=== PATIENT | female | born 1950 | race African-American/Black ===

== ENCOUNTER 2016-07-21 07:52 | Outpatient (CLI) | payer MEDICARE, OTHER ==
[~2016-07-21 07:52] MED LIST: DEXAMETHASONE SOD PHOSPHATE 10 MG in NORMAL SALINE 50 ML IV PRN; DEXTROSE 5%-WATER 250 ML IV PRN; DIPHENHYDRAMINE HCL 50 MG/ML VIAL IV PRN; [UNRECOGNIZED DRUG - OTHER] IV PRN; [UNRECOGNIZED DRUG - OTHER] IV PRN
[2016-07-21 08:35] VITALS: BP 118/70
== END 2016-07-21 13:09 | disposition home health service (06) ==
LOC: II 07:52 → 5TH 07:55 → II 13:09
PROVIDERS: ATTEND Internal Medicine
PROC: 3E033GC Introduction of Other Therapeutic Substance into Peripheral Vein, Percutaneous Approach (ICD-10-PCS; principal; 2016-07-21)
DX: D80.1 Nonfamilial hypogammaglobulinemia (principal)
CPT/HCPCS: 96365; 96366; 96367; 96375; J1200; A9270 ×2; J1100; J1566 ×2; 96360; 96374; J3490

== ENCOUNTER 2016-09-07 09:25 | Outpatient (CLI) | payer MEDICARE, OTHER ==
[~2016-09-07 09:25] MED LIST changes: +DEXAMETHASONE SOD PHOS INJ 10 MG/1 ML VIAL IV PRN; -DEXAMETHASONE SOD PHOSPHATE 10 MG in NORMAL SALINE 50 ML IV PRN; +[UNRECOGNIZED DRUG - MIXTURE] IV PRN; +[UNRECOGNIZED DRUG - OTHER] IV PRN; -[UNRECOGNIZED DRUG - OTHER] IV PRN; -[UNRECOGNIZED DRUG - OTHER] IV PRN
[2016-09-07 13:56] VITALS: BP 128/52
== END 2016-09-07 14:09 | disposition home or self-care (01) ==
LOC: II 09:25 → 5TH 09:25 → II 14:09
PROVIDERS: ATTEND Internal Medicine
PROC: 3E043GC Introduction of Other Therapeutic Substance into Central Vein, Percutaneous Approach (ICD-10-PCS; principal; 2016-09-07)
PROC: 3E043GC Introduction of Other Therapeutic Substance into Central Vein, Percutaneous Approach (ICD-10-PCS; 2016-09-07)
PROC: 3E043GC Introduction of Other Therapeutic Substance into Central Vein, Percutaneous Approach (ICD-10-PCS; 2016-09-07)
PROC: 3E043GC Introduction of Other Therapeutic Substance into Central Vein, Percutaneous Approach (ICD-10-PCS; 2016-09-07)
DX: D80.1 Nonfamilial hypogammaglobulinemia (principal)
CPT/HCPCS: 96365; 96366; 96375; J1200; A9270; J1100; J1566 ×2; 96374; J3490

== ENCOUNTER 2016-10-19 08:02 | Outpatient (CLI) | payer MEDICARE, OTHER ==
[~2016-10-19 08:02] MED LIST changes: -DEXAMETHASONE SOD PHOS INJ 10 MG/1 ML VIAL IV PRN; +DEXAMETHASONE SOD PHOSPHATE 10 MG in NORMAL SALINE 50 ML IV PRN; -[UNRECOGNIZED DRUG - MIXTURE] IV PRN; +[UNRECOGNIZED DRUG - OTHER] IV PRN; +[UNRECOGNIZED DRUG - OTHER] IV PRN; -[UNRECOGNIZED DRUG - OTHER] IV PRN
[2016-10-19 08:43] VITALS: BP 140/70
== END 2016-10-19 13:47 | disposition home or self-care (01) ==
LOC: II 08:02 → 5TH 08:06 → II 13:47
PROVIDERS: ATTEND Internal Medicine
PROC: 3E033WL Introduction of Immunosuppressive into Peripheral Vein, Percutaneous (ICD-10-PCS; principal; 2016-10-19)
PROC: 3E033GC Introduction of Other Therapeutic Substance into Peripheral Vein, Percutaneous Approach (ICD-10-PCS; 2016-10-19)
DX: D80.1 Nonfamilial hypogammaglobulinemia (principal)
CPT/HCPCS: 96365; 96366; 96375; 96360; J1200; A9270; J1100; J1566 ×2; J3490

== ENCOUNTER 2016-11-30 09:40 | Outpatient (CLI) | payer MEDICARE, OTHER ==
[~2016-11-30 09:40] MED LIST changes: +IGA IV PRN; +IMMUN GLOB IV PRN; +SUCR IV PRN; +[UNRECOGNIZED DRUG - OTHER] IV PRN; -[UNRECOGNIZED DRUG - OTHER] IV PRN; -[UNRECOGNIZED DRUG - OTHER] IV PRN
[2016-11-30 11:34] VITALS: BP 137/71
== END 2016-11-30 14:25 | disposition home or self-care (01) ==
LOC: 5TH 09:40 → II 09:40
PROVIDERS: ATTEND Internal Medicine
PROC: 3E043WK Introduction of Immunostimulator into Central Vein, Percutaneous (ICD-10-PCS; principal; 2016-11-30)
PROC: 3E0433Z Introduction of Anti-inflammatory into Central Vein, Percutaneous Approach (ICD-10-PCS; 2016-11-30)
PROC: 3E043GC Introduction of Other Therapeutic Substance into Central Vein, Percutaneous Approach (ICD-10-PCS; 2016-11-30)
DX: D80.1 Nonfamilial hypogammaglobulinemia (principal)
CPT/HCPCS: 96367; 96375; J1200; A9270; J1100; J1566 ×2; 96365; 96366; J3490

== ENCOUNTER → 2016-12-26 | Outpatient (CLI) | payer MEDICARE, OTHER ==
--- NOTE | 2016-12-26 10:29 | WOMENS IMAGING REPORT ---
EXAM DESCRIPTION: 3D SCREENING MAMMO BILAT COMPLETED DATE/TIME: 12/26/2016 9:34 am REASON FOR STUDY: 3D ROUTINE SCREENING; Z12.31 Z12.31 ENCNTR SCREEN MAMMOGRAM FOR MALIGNANT NEOPLAS M OF [place] COMPARISON: 12/15/2015 and 02/05/2015. TECHNIQUE: Standard craniocaudal and mediolateral oblique views of each breast recorded using digita l acquisition and breast tomosynthesis. LIMITATIONS: None. FINDINGS: No masses, calcifications or architectural distortion. No areas of suspicion. Read with the assistance of CAD. .[facility] - R2 Cenova Version 1.3 .[facility] - R2 Cenova Version 1.3 .[facility] - R2 Cenova Version 2.4 .[facility] - R2 Cenova Version 2.4 .[facility] - R2 Cardiac Catheterization Technician Version 9.2 IMPRESSION: NORMAL MAMMOGRAM. BIRADS 1. BREAST DENSITY: c. The breasts are heterogeneously dense, which may obscure small masses. BIRAD: 1 NEGATIVE RECOMMENDATION: ROUTINE SCREENING COMMENT: The patient has been notified of the results by letter per SA requirements. Additional no tification policies are in place for contacting patient with suspicious or incomplete findings. Quality ID #[id number]: The [employer] recommends an annual screening mammogram for women aged 40 years or over. This facility utilizes a reminder system to ensure that all patients receive reminder letters, and/or direct phone calls for appointments. This includes reminders for routine scr eening mammograms, diagnostic mammograms, or other Breast Imaging Interventions when appropriate. Th is patient will be placed in the appropriate reminder system. The [employer] (ACR) has developed recommendations for screening MRI of the breast s in certain patient populations, to be used in conjunction with mammography. Breast MRI surveillanc e may be appropriate for women with more than 20% lifetime risk of developing breast cancer as deter mined by genetic testing, significant family history of the disease, or history of mantle radiation f or Hodgkins Disease. ACR Practice Guidelines 2008. DBT Technology DBT is a type of tomographic mammography. With conventional mammography, overlapping breast tissue ma y make lesions difficult to detect, even with good compression. DBT uses an x-ray tube that rotates a round the breast, taking images at different angles. These images are then combined to create thin sl ices of the breast that the radiologist can view as a 3D reconstruction. The [employer] unit can perform full-field digital mammograms (2D imaging); or DBT (3D imaging); or both, in a combination mode that quickly performs both the mammogram and the tomosynthesis scan while the breast is still compressed. PQRS 6045F: Fluoroscopic imaging is not utilized for breast tomosynthesis. TECHNICAL DOCUMENTATION: FINDING NUMBER: (1) ASSESSMENT: (1) JOB ID: [id number] [employer]- All Rights Reserved
== END ==
LOC: WI 09:04
PROVIDERS: ATTEND Obstetrics & Gynecology Gynecology
DX: Z12.31 Encounter for screening mammogram for malignant neoplasm of breast (principal)
CPT/HCPCS: 77063; G0202; 77067

== ENCOUNTER 2017-01-11 08:17 | Outpatient (CLI) | payer MEDICARE, OTHER ==
[~2017-01-11 08:17] MED LIST changes: +DEXAMETHASONE SOD PHOS INJ 10 MG/1 ML VIAL IV PRN; -IGA IV PRN; -IMMUN GLOB IV PRN; -SUCR IV PRN; -[UNRECOGNIZED DRUG - OTHER] IV PRN
[2017-01-11] MEDS: [UNRECOGNIZED DRUG - OTHER] IV PRN ×2 (09:22→11:42)
[2017-01-11] MEDS: SUCR IV PRN ×2 (09:22→11:42)
[2017-01-11] MEDS: IMMUN GLOB IV PRN ×2 (09:22→11:42)
[2017-01-11] MEDS: IGA IV PRN ×2 (09:22→11:42)
[2017-01-11 09:59] VITALS: BP 137/62
== END 2017-01-11 13:15 | disposition home or self-care (01) ==
LOC: II 08:17 → 5TH 08:29 → II 13:15
PROVIDERS: ATTEND Internal Medicine
PROC: 30243S1 Transfusion of Nonautologous Globulin into Central Vein, Percutaneous Approach (ICD-10-PCS; principal; 2017-01-11)
PROC: 3E0433Z Introduction of Anti-inflammatory into Central Vein, Percutaneous Approach (ICD-10-PCS; 2017-01-11)
PROC: 3E043GC Introduction of Other Therapeutic Substance into Central Vein, Percutaneous Approach (ICD-10-PCS; 2017-01-11)
DX: D80.1 Nonfamilial hypogammaglobulinemia (principal)
CPT/HCPCS: 96365; 96366; 96367; 96375; J1200; A9270; J1100; J1566 ×2; J3490

== ENCOUNTER 2017-02-22 07:37 | Outpatient (CLI) | payer MEDICARE, OTHER ==
[~2017-02-22 07:37] MED LIST changes: -DEXAMETHASONE SOD PHOS INJ 10 MG/1 ML VIAL IV PRN; +IGA IV PRN; +IMMUN GLOB IV PRN; +SUCR IV PRN; +[UNRECOGNIZED DRUG - OTHER] IV PRN
[2017-02-22 08:10] VITALS: BP 134/80
== END 2017-02-22 12:58 | disposition home or self-care (01) ==
LOC: II 07:37 → 5TH 07:38 → II 12:58
PROVIDERS: ATTEND Internal Medicine
PROC: 30243S1 Transfusion of Nonautologous Globulin into Central Vein, Percutaneous Approach (ICD-10-PCS; principal; 2017-02-22)
DX: D80.1 Nonfamilial hypogammaglobulinemia (principal)
CPT/HCPCS: 96365; 96366; 96374; 96375; 96523; J1200; A9270; J1100; J1566 ×2; J3490

== ENCOUNTER 2017-04-05 07:59 | Outpatient (CLI) | payer MEDICARE, OTHER ==
[~2017-04-05 07:59] MED LIST changes: +DIPHENHYDRAMINE HCL 50 MG in NORMAL SALINE 50 ML INJ PRN
[2017-04-05 08:29] VITALS: BP 132/68
== END 2017-04-05 12:51 | disposition home or self-care (01) ==
LOC: II 07:59 → 5TH 08:02 → II 12:51
PROVIDERS: ATTEND Internal Medicine
PROC: 30243S1 Transfusion of Nonautologous Globulin into Central Vein, Percutaneous Approach (ICD-10-PCS; principal; 2017-04-05)
PROC: 3E0433Z Introduction of Anti-inflammatory into Central Vein, Percutaneous Approach (ICD-10-PCS; 2017-04-05)
PROC: 3E043GC Introduction of Other Therapeutic Substance into Central Vein, Percutaneous Approach (ICD-10-PCS; 2017-04-05)
DX: D80.1 Nonfamilial hypogammaglobulinemia (principal)
CPT/HCPCS: 96365; 96366; 96367; 96375; 96417; 96523; J1200; A9270; J1100; J1566 ×2; 96413; 96415; J3490

== ENCOUNTER 2017-05-17 09:46 | Outpatient (CLI) | payer MEDICARE, OTHER ==
[~2017-05-17 09:46] MED LIST changes: -DIPHENHYDRAMINE HCL 50 MG in NORMAL SALINE 50 ML INJ PRN
[2017-05-17 13:36] VITALS: BP 116/74
== END 2017-05-17 13:36 | disposition home or self-care (01) ==
LOC: 5TH 09:46 → II 09:46
PROVIDERS: ATTEND Internal Medicine
PROC: 30243S1 Transfusion of Nonautologous Globulin into Central Vein, Percutaneous Approach (ICD-10-PCS; principal; 2017-05-17)
PROC: 3E0433Z Introduction of Anti-inflammatory into Central Vein, Percutaneous Approach (ICD-10-PCS; 2017-05-17)
PROC: 3E043GC Introduction of Other Therapeutic Substance into Central Vein, Percutaneous Approach (ICD-10-PCS; 2017-05-17)
DX: D80.1 Nonfamilial hypogammaglobulinemia (principal)
CPT/HCPCS: 96365; 96366; 96367; 96374; 96523; J1200; A9270; J1100; J1566 ×2; 96375; J3490

== ENCOUNTER → 2017-05-18 | Outpatient (CLI) | payer MEDICARE, OTHER ==
--- NOTE | 2017-05-18 10:55 | WOMENS IMAGING REPORT ---
EXAM DESCRIPTION: BONE DENSITY HIP/SPINE COMPLETED DATE/TIME: 05/18/2017 9:39 am REASON FOR STUDY: OSTEOPROSIS; M81.0 M81.0 AGE-RELATED OSTEOPOROSIS W/O CURRENT PATHOLOGICAL FRAC COMPARISON: None. TECHNIQUE: Dual-Energy X-ray Absorptiometry (DEXA) of the AP Spine and Hip. LIMITATIONS: None. FINDINGS: LUMBAR SPINE: The bone mineral density (BMD) measured from L1-L4 in the AP projection correlates with a T-score of -1.2, which is osteopenia as defined by the World Health Organization. HIP: The bone mineral density (BMD) measured in the left hip correlates with a T-score of -0.3, which is n ormal as defined by the World Health Organization. IMPRESSION: 1. LUMBAR SPINE: OSTEOPENIA. 2. HIP: NORMAL. COMMENT: The patient's 10 year risk of major osteoporotic fracture is 4.7%. Her 10 year risk of hip fracture is 0.2%. The World Health Organization defines low BMD as follows: T-score: Normal: Greater than -1.0 Osteopenia: Between -1.0 and -2.5 Osteoporosis: Less than -2.5 without fractures Established osteoporosis: Less than -2.5 with fractures In general, you may wish to consider: Diagnosis Treatment Follow-up DEXA Normal BMD Prevention 2-3 years Osteopenia Prevention/Therapy 1-2 years Osteoporosis Therapy Yearly TECHNICAL DOCUMENTATION: JOB ID: [id number]- All Rights Reserved
== END ==
LOC: WI 09:07
PROVIDERS: ATTEND Orthopaedic Surgery
DX: M81.0 Age-related osteoporosis without current pathological fracture (principal)
CPT/HCPCS: 77080

== ENCOUNTER 2017-06-25 06:33 | Inpatient (IN) | payer MEDICARE, OTHER ==
[2017-06-25] MEDS ORDERED: ONDANSETRON HCL INJ/PF 4 MG/2 ML SDV IV ONE (07:02)
[2017-06-25] MEDS ORDERED: PROCHLORPERAZINE EDISYLATE INJ 10 MG/2 ML VIAL IV ONE (07:02)
[2017-06-25] MEDS: NORMAL SALINE 1000 ML 1,000 ML IV PRN ×2 (07:30→09:08)
[2017-06-25 07:34] LABS: ABSOLUTE LYMPHOCYTES (AUTO) 1.5 10^3/uL (0.5-4.7); ABSOLUTE MONOCYTES (AUTO) 0.4 10^3/uL (0.1-1.4); ABSOLUTE NEUT (AUTO) 4.1 10^3/uL (1.7-8.2); BASOPHILS % (AUTO) 0.1 % (0-2); EOSINOPHILS % (AUTO) 0.1 % (0-6); HEMATOCRIT 37.3 % (36.0-47.0); HEMOGLOBIN 12.4 g/dL (12.0-15.5); HGB HCT DIFFERENCE -0.1; LYMPHOCYTES % (AUTO) 25.4 % (13-45); MEAN CORPUSCULAR HEMOGLOBIN 30.9 pg (27.0-33.4); MEAN CORPUSCULAR HGB CONC 33.3 g/dL (32.0-36.0); MEAN CORPUSCULAR VOLUME 93 fl (80-97); MONOCYTES % (AUTO) 6.6 % (3-13); RED BLOOD COUNT 4.01 10^6/uL (3.72-5.28); RED CELL DISTRIBUTION WIDTH 13.3 % (11.5-14.0); SEGMENTED NEUTROPHILS % (AUTO) 67.8 % (42-78); WHITE BLOOD COUNT 6.1 10^3/uL (4.0-10.5)
[2017-06-25 07:51] LABS: VENOUS BLOOD BASE EXCESS -6.4 mmol/L; VENOUS BLOOD HCO3 20.2 mmol/L (20-32); VENOUS BLOOD PCO2 44.1 mmHg (35-63); VENOUS BLOOD PH 7.28 (7.30-7.42)
[2017-06-25 08:32] LABS: ALANINE AMINOTRANSFERASE 37 U/L (9-52); ALBUMIN 3.9 g/dL (3.5-5.0); ALKALINE PHOSPHATASE 44 U/L (38-126); ASPARTATE AMINO TRANSFERASE 25 U/L (14-36); BILIRUBIN,DIRECT 0.4 mg/dL (0.0-0.4); BILIRUBIN,TOTAL 0.9 mg/dL (0.2-1.3); BLOOD UREA NITROGEN 22 mg/dL (7-20); CALCIUM 9.4 mg/dL (8.4-10.2); CREATININE RESULT 0.88 mg/dL (0.52-1.25); LIPASE 30.2 U/L (23-300); TOTAL PROTEIN 6.3 g/dL (6.3-8.2)
--- NOTE | 2017-06-25 08:40 | RADIOLOGY REPORT (SQ) ---
EXAM DESCRIPTION: ACUTE ABDOMEN SERIES COMPLETED DATE/TIME: 06/25/2017 8:28 am REASON FOR STUDY: n/v/ sob COMPARISON: Chest films 05/24/2011, 04/10/2016 CT abdomen and pelvis 10/08/2015 NUMBER OF VIEWS: Three views. TECHNIQUE: Frontal chest, supine abdomen and upright abdomen radiographic images acquired. LIMITATIONS: None. FINDINGS: CHEST: Lungs clear of infiltrates. Mild pulmonary vascular prominence without alveolar or interstitial edema. No pleural effusions. No pneumothorax. Cardiac silhouette size mildly enlarge d, stable. FREE AIR: None. No abnormal gas collections. BOWEL GAS PATTERN: Nonobstructive pattern. No dilated loops or air fluid levels. CALCIFICATIONS: No suspicious calcifications. HARDWARE: None in the abdomen. Small implanted cardiac monitoring device over the left lower anterio r ribs. Lower cervical fixation hardware. SOFT TISSUES: No gross mass or suggestion of organomegaly. BONES: No acute fracture. No worrisome bone lesions. OTHER: No other significant finding. IMPRESSION: NO RADIOGRAPHIC EVIDENCE FOR ACUTE ABDOMINAL DISEASE. TECHNICAL DOCUMENTATION: JOB ID: [id number]- All Rights Reserved
[2017-06-25 08:53] LABS: CARBON DIOXIDE 18 mmol/L (22-30); CHLORIDE 97 mmol/L (98-107); POTASSIUM 4.2 mmol/L (3.6-5.0); SODIUM 135.8 mmol/L (137-145)
[2017-06-25 08:54] LABS: ANION GAP 21 (5-19)
[2017-06-25 08:57] LABS: GLUCOSE 521 mg/dL (75-110)
[2017-06-25] MEDS ORDERED: GLUCAGON,HUMAN RECOMB 1 MG INJ IM PRN ×2 (09:16→10:22)
[2017-06-25] MEDS ORDERED: DEXTROSE 40% GEL 15 GM TUBE PO PRN ×4 (09:16→10:22)
[2017-06-25] MEDS ORDERED: DEXTROSE 50%-WATER 25 GM/50 ML DISP.SYRIN IV PRN ×4 (09:16→10:22)
--- NOTE | 2017-06-25 09:28 | ER Document Report ---
ED General - General Chief Complaint: High Blood Sugar Stated Complaint: BLOOD SUGAR PROBLEM Time Seen by Provider: 06/25/17 06:50 TRAVEL OUTSIDE OF THE [place] IN LAST 30 DAYS: No - HPI Patient complains to provider of: Elevated blood sugar Notes: Patient coming in with elevated blood sugar. States reading high today patient states over the last few days having nausea vomiting. Patient has a history of diabetes is on insulin pump that she bolused herself 5 units of insulin early this morning at 5:00. Patient states she also has a history of hyper hemoglobin anemia. Patient states that she has not been on any recent antibiotics denies any fever chills nausea vomiting cough denies any urinary issues. - Related Data Allergies/Adverse Reactions: No Known Allergies Allergy (Verified 06/25/17 07:51) Home Medications: Current Home Medications Ascorbic Acid [Vitamin C 500 mg Tablet] 500 mg PO DAILY 06/25/17 [History] Aspirin [Aspirin EC] 81 mg PO DAILY 06/25/17 [History] Citalopram Hydrobromide [Celexa 20 mg Tablet] 20 mg PO QHS 06/25/17 [History] Cyclosporine 0.05% Oph Emulsio [Restasis 0.05% Opthalmic Droperette] 1 drop OU Q12 06/25/17 [History] Fexofenadine HCl [Neli] 180 mg PO DAILY 06/25/17 [History] Fluticasone Propionate [Flonase Nasal [place] 50 Mcg/[place] 16 gm] 1 spray NAREB Q12 06/25/17 [History] Furosemide [Lasix 40 mg Tablet] 40 mg PO QAM 06/25/17 [History] Guaifenesin/Dextromethorphan [Mucinex Dm ER 600-30 mg Tablet] 1 tab PO Q12 06/25 [History] Insulin Aspart [Novolog Flexpen] 0 unit SUBCUT .SLD SCALE 06/25/17 [History] Losartan/Hydrochlorothiazide [Losartan-Hctz 50-12.5 mg Tab] 1 tab PO DAILY 06/25 [History] Pnv,Calcium 72/Iron/Folic Acid [Pnv Plus Multivit Tab] 1 tab PO DAILY 06/25/17 [History] Pravastatin Sodium [Pravachol] 40 mg PO QHS 06/25/17 [History] Promethazine HCl [Phenergan 25 mg Tablet] 25 mg PO DAILYP PRN 06/25/17 [History] Valacyclovir HCl [Valtrex 500 Mg Tablet] 500 mg PO Q48H MDD NEXT DOSE DUE 06/25/17 [History] Past Medical History - Social History Smoking Status: Unknown if Ever Smoked Family History: Reviewed & Not Pertinent Patient has suicidal ideation: No Patient has homicidal ideation: No - Past Medical History Cardiac Medical History: Reports: Hx Hypertension Denies: Hx Congestive Heart Failure, Hx Heart Attack, Hx Heart Murmur Pulmonary Medical History: Reports: Hx Bronchitis, Hx COPD Denies: Hx Asthma, Hx Pneumonia, Hx Tuberculosis Neurological Medical History: Denies: Hx Cerebrovascular Accident, Hx Seizures Endocrine Medical History: Reports: Hx Diabetes Mellitus Type 1 Renal/ Medical History: Denies: Hx Peritoneal Dialysis GI Medical History: Denies: Hx Hepatitis, Hx Hiatal Hernia, Hx Ulcer Musculoskeltal Medical History: Reports Hx Arthritis Infectious Medical History: Denies: Hx Hepatitis Past Surgical History: Reports: Hx Hysterectomy. Denies: Hx Mastectomy, Hx Open Heart Surgery, Hx Pacemaker - Immunizations Hx Diphtheria, Pertussis, Tetanus Vaccination: Yes Hx Pneumococcal Vaccination: 03/18/09 Review of Systems - Review of Systems Constitutional: Other - Elevated blood sugars EENT: No symptoms reported Cardiovascular: No symptoms reported Respiratory: No symptoms reported Gastrointestinal: Nausea, Vomiting Genitourinary: No symptoms reported Female Genitourinary: No symptoms reported Musculoskeletal: No symptoms reported Skin: No symptoms reported Hematologic/Lymphatic: No symptoms reported Neurological/Psychological: No symptoms reported -: Yes All other systems reviewed and negative Physical Exam - Vital signs Vitals: Temp Pulse Resp BP Pulse Ox 98.2 F 95 16 95/40 L 100 06/25/17 06:43 06/25/17 06:43 06/25/17 06:43 06/25/17 06:43 06/25/17 06:43 Interpretation: Hypotensive - General General appearance: Appears well, Alert - HEENT Head: Normocephalic, Atraumatic Eyes: Normal Pupils: PERRL - Respiratory Respiratory status: No respiratory distress Chest status: Nontender Breath sounds: Normal Chest palpation: Normal - Cardiovascular Rhythm: Regular Heart sounds: Normal auscultation Murmur: No Notes: Port left upper chest - Abdominal Inspection: Normal Distension: No distension Bowel sounds: Normal Tenderness: Nontender Organomegaly: No organomegaly - Back Back: Normal, Nontender - Extremities General upper extremity: Normal inspection, Nontender, Normal color, Normal ROM , Normal temperature General lower extremity: Normal inspection, Nontender, Normal color, Normal ROM , Normal temperature, Normal weight bearing. No: Rachel's sign - Neurological Neuro grossly intact: Yes Cognition: Normal Orientation: AAOx4 [place] Coma Scale Eye Opening: Spontaneous [place] Coma Scale Verbal: Oriented [place] Coma Scale Motor: Obeys Commands Girish Coma Scale Total: 15 Speech: Normal Motor strength normal: LUE, RUE, LLE, RLE Sensory: Normal - Psychological Associated symptoms: Normal affect, Normal mood - Skin Skin Temperature: Warm Skin Moisture: Dry Skin Color: Normal Course - Re-evaluation Re-evalutation: 06/25/17 15:15 Concerning for early DKA patient is acidotic with an elevated anion gap and decreased bicarb. Patient was to be started on insulin drip with the stop her insulin pump. Patient's blood pressure did respond to IV fluids. No signs of any infection unknown reason for elevated blood sugar at this time patient will be admitted to the hospitalist service for further evaluation. - Vital Signs Vital signs: Temp Pulse Resp BP Pulse Ox 99.4 F 102 H 20 118/44 L 99 06/25/17 11:29 06/25/17 11:29 06/25/17 11:29 06/25/17 11:29 06/25/17 11:29 - Laboratory Result Diagrams: 06/25/17 07:10 06/25/17 12:08 Laboratory results interpreted by me: 06/25/17 06/25/17 06/25/17 06:44 07:10 07:38 VBG pH 7.28 L Sodium 135.8 L Chloride 97 L Carbon Dioxide 18 L Anion Gap 21 H BUN 22 H Glucose 521 H* POC Glucose 463 H* Critical Care Note - Critical Care Note Total time excluding time spent on procedures (mins): 35 Comments: Managing patient with DKA hypotension requiring drip maintenance and multiple evaluations Discharge - Discharge Clinical Impression: Hypogammaglobulinemia, Dehydration Diabetic ketoacidosis Qualifiers: Diabetes mellitus type: type 1 Diabetes mellitus complication detail: without coma Qualified Code(s): E10.10 - Type 1 diabetes mellitus with ketoacidosis without coma Condition: Good Disposition: ADMITTED INPATIENT Admitting Provider: Hospitalist - [facility] Admitted: [facility]
[2017-06-25] MEDS ORDERED: INSULIN REG, HUMAN 100 UNIT/ML 3 ML VIAL (PYX) ONE (09:42)
[2017-06-25] MEDS: NORMAL SALINE 100 ML with INSULIN REGULAR, HUMAN 100 UNIT IV PRN ×2 (09:47)
[2017-06-25] MEDS ORDERED: IPRATROPIUM/ALBUTEROL 0.5-2.5 MG/3 ML AMPUL NEB PRN (10:16)
[2017-06-25] MEDS ORDERED: ACETAMINOPHEN 325 MG TABLET PO PRN (10:19)
[2017-06-25] MEDS ORDERED: MAGNESIUM HYDROXIDE SUSP 30 ML UDCUP PO PRN (10:19)
[2017-06-25] MEDS ORDERED: NORMAL SALINE 1000 ML 1,000 ML IV PRN (10:22)
--- NOTE | 2017-06-25 10:49 | PDOC H&P ---
History of Present Illness Admission Date/PCP: 06/25/17 09:43 Patient complains of: Elevated Blood Glucose, Vomiting and Diarrhea, and recent treatment for Acute Bronchitis. History of Present Illness: JOCELYN ALVAREZ is a 67 year old female presents that the ER with complaint of 5 days of upper respiratory symptoms. Pt states that she went to her PCP were she was placed on Azithromycin and Mucinex. Pt states that her symptoms improved. Pt states that on Mon night she became nauseated and vomited once. Pt states that she has been having chills but no fever. Pt states that on Monday she noticed that she had burning with urination. Past Medical History Cardiac Medical History: Reports: Hypertension Denies: Congestive Heart Failure, Myocardial Infarction, Heart Murmur Pulmonary Medical History: Reports: Bronchitis, Chronic Obstructive Pulmonary Disease (COPD) Denies: Asthma, Pneumonia, Tuberculosis Neurological Medical History: Denies: Seizures Endocrine Medical History: Reports: Diabetes Mellitus Type 1 GI Medical History: Denies: Hepatitis, Hiatal Hernia Musculoskeltal Medical History: Reports: Arthritis Hematology: Reports: Anemia - HX Denies: Hemophilia, Sickle Cell Disease Past Surgical History Past Surgical History: Reports: Hysterectomy Denies: Amputation, Mastectomy, Pacemaker Social History Smoking Status: Unknown if Ever Smoked Frequency of Alcohol Use: None Hx Recreational Drug Use: No Drugs: None Family History Family History: Reviewed & Not Pertinent Parental Family History Reviewed: Yes Children Family History Reviewed: Yes Sibling(s) Family History Reviewed.: Yes Medication/Allergy Home Medications: Ascorbic Acid [Vitamin C 500 mg Tablet] 500 mg PO DAILY 06/25/17 Aspirin [Aspirin EC] 81 mg PO DAILY 06/25/17 Citalopram Hydrobromide [Celexa 20 mg Tablet] 20 mg PO 06/25/17 Cyclosporine 0.05% Oph Emulsio [Restasis 0.05% Opthalmic Droperette] 1 drop Fexofenadine HCl [Neli] 180 mg PO DAILY 06/25/17 Fluconazole [Diflucan] 150 mg PO PRN 06/25/17 Fluticasone Propionate [Flonase Nasal [place] 50 Mcg/[place] 16 gm] spray NASL 06/25 Furosemide [Lasix 40 mg Tablet] 40 mg PO QAM 06/25/17 Guaifenesin/Dextromethorphan [Mucinex Dm ER 600-30 mg Tablet] 1 tab PO Q12 06/25 Insulin Aspart [Novolog Flexpen] 0 unit SUBCUT .SLD SCALE 06/25/17 Losartan/Hydrochlorothiazide [Losartan-Hctz 50-12.5 mg Tab] 1 tab PO DAILY 06/25 Pnv,Calcium 72/Iron/Folic Acid [Pnv Plus Multivit Tab] 1 tab PO DAILY 06/25/17 Pravastatin Sodium [Pravachol] 40 mg PO QHS 06/25/17 Promethazine HCl [Phenergan 25 mg Tablet] 25 mg PO DAILYP PRN 06/25/17 Valacyclovir HCl [Valtrex 500 Mg Tablet] 500 mg PO DAILY 06/25/17 Allergies/Adverse Reactions: No Known Allergies Allergy (Verified 06/25/17 07:51) Review of Systems Constitutional: PRESENT: chills. ABSENT: as per HPI, anorexia, fatigue, fever(s ), headache(s), night sweats, weakness, weight gain, weight loss, other Eyes: ABSENT: visual disturbances Ears: ABSENT: hearing changes Cardiovascular: ABSENT: chest pain, dyspnea on exertion, edema, orthropnea, palpitations Respiratory: ABSENT: cough, hemoptysis Gastrointestinal: ABSENT: abdominal pain, constipation, diarrhea, hematemesis, hematochezia, nausea, vomiting Genitourinary: PRESENT: dysuria, other - + buring with urination.. ABSENT: as per HPI, difficulty urinating, hematuria, nocturia Musculoskeletal: ABSENT: joint swelling Integumentary: ABSENT: rash, wounds Neurological: ABSENT: abnormal gait, abnormal speech, confusion, dizziness, focal weakness, syncope Psychiatric: ABSENT: anxiety, depression, homidical ideation, suicidal ideation Endocrine: ABSENT: cold intolerance, heat intolerance, polydipsia, polyuria Hematologic/Lymphatic: ABSENT: easy bleeding, easy bruising Physical Exam Vital Signs: Temp Pulse Resp BP Pulse Ox 98.2 F 95 18 95/42 L 96 06/25/17 06:43 06/25/17 06:43 06/25/17 10:16 06/25/17 10:16 06/25/17 10:16 General appearance: PRESENT: no acute distress, well-developed, well-nourished Head exam: PRESENT: atraumatic, normocephalic Eye exam: PRESENT: conjunctiva pink, EOMI, PERRLA. ABSENT: scleral icterus Ear exam: PRESENT: normal external ear exam Mouth exam: PRESENT: moist, tongue midline Neck exam: ABSENT: carotid bruit, JVD, lymphadenopathy, thyromegaly Respiratory exam: PRESENT: clear to auscultation pretty. ABSENT: rales, rhonchi, wheezes Cardiovascular exam: PRESENT: RRR. ABSENT: diastolic murmur, rubs, systolic murmur Pulses: PRESENT: normal dorsalis pedis pul Vascular exam: PRESENT: normal capillary refill GI/Abdominal exam: PRESENT: normal bowel sounds, soft. ABSENT: distended, guarding, mass, organolmegaly, rebound, tenderness Rectal exam: PRESENT: deferred Extremities exam: PRESENT: full ROM. ABSENT: calf tenderness, clubbing, pedal edema Musculoskeletal exam: PRESENT: full ROM Neurological exam: PRESENT: alert, awake, oriented to person, oriented to place , oriented to time, oriented to situation, CN II-XII grossly intact. ABSENT: motor sensory deficit Psychiatric exam: PRESENT: appropriate affect, normal mood. ABSENT: homicidal ideation, suicidal ideation Skin exam: PRESENT: dry, intact, warm. ABSENT: cyanosis, rash Results Impressions: Acute Abdomen Series 06/25/17 07:07 IMPRESSION: NO RADIOGRAPHIC EVIDENCE FOR ACUTE ABDOMINAL DISEASE. Assessment & Plan - Diagnosis (1) Diabetic ketoacidosis Qualifiers: Diabetes mellitus type: type 1 Diabetes mellitus complication detail: without coma Qualified Code(s): E10.10 - Type 1 diabetes mellitus with ketoacidosis without coma Is this a current diagnosis for this admission?: Yes Plan: Will place pt on DKA protocol. Will monitor pt closely. Will check HbgA1C. BMP Q6 and Urine Ketones Q6. Will check for bacterial infection. (2) Dehydration Is this a current diagnosis for this admission?: Yes Plan: Will give IVF Bolus and continue IVFs. Will hold blood pressure medications. (3) Acute bronchitis Qualifiers: Bronchitis organism: unspecified organism Qualified Code(s): J20.9 - Acute bronchitis, unspecified Is this a current diagnosis for this admission?: Yes Plan: Pt has been treated outpatient with Azthromycin. Will place on Levaquin. (4) Hypogammaglobulinemia Is this a current diagnosis for this admission?: No Plan: Pt will continue to follow up with outpatient physician. (5) SIRS (systemic inflammatory response syndrome) Is this a current diagnosis for this admission?: No Plan: Pt noted to have SBP 92 and elevated RR. Will continue to monitor. Will check UA. CXR pending currently. (6) UTI (urinary tract infection) Qualifiers: Urinary tract infection type: acute cystitis Is this a current diagnosis for this admission?: Yes Plan: Concern for UTI: Will check UA and urine culture. Will place on Levaquin. (7) Hyponatremia Is this a current diagnosis for this admission?: Yes Plan: Secondary to Hyperglycemia: Will continue IVFs and Insulin. (8) Metabolic acidosis Is this a current diagnosis for this admission?: Yes Plan: In setting of DKA: Will continue IVFs and Insulin. (9) DVT prophylaxis Is this a current diagnosis for this admission?: Yes Plan: SCDs - Time Time Spent: 30 to 50 Minutes Anticipated discharge: Home - Pt's 's father passed that furneral is scheduled for Monday of this week. Pt is concerned about making it to the furneral.
[2017-06-25] MEDS ORDERED: RINGERS SOLUTION,LACTATED 1,000 ML IV ONE (11:00)
[2017-06-25 12:32] LABS: ANION GAP 17 (5-19); BLOOD UREA NITROGEN 23 mg/dL (7-20); CALCIUM 9.1 mg/dL (8.4-10.2); CARBON DIOXIDE 19 mmol/L (22-30); CHLORIDE 102 mmol/L (98-107); CREATININE RESULT 0.87 mg/dL (0.52-1.25); GLUCOSE 355 mg/dL (75-110); POTASSIUM 4.1 mmol/L (3.6-5.0); SODIUM 137.6 mmol/L (137-145)
[2017-06-25 13:33] LABS: ARTERIAL BLOOD BASE EXCESS -5.5 mmol/L; ARTERIAL BLOOD O2 SATURATION 92.8 % (94-98)
[2017-06-25] MEDS: ONDANSETRON HCL INJ/PF 4 MG/2 ML SDV IV PRN (14:39)
[2017-06-25] MEDS ORDERED: IBUPROFEN 800 MG TABLET PO PRN (14:43)
[2017-06-25 15:14] LABS: APPEARANCE,URINE CLEAR; BILIRUBIN,URINE NEGATIVE (NEGATIVE); GLUCOSE, URINE >=500 mg/dL (NEGATIVE); KETONES,URINE 20 mg/dL (NEGATIVE); LEUKOCYTE ESTERASE,URINE NEGATIVE (NEGATIVE); NITRITE,URINE NEGATIVE (NEGATIVE); PROTEIN,URINE NEGATIVE (NEGATIVE); URINE SPECIFIC GRAVITY 1.023; UROBILINOGEN,URINE NEGATIVE mg/dL (<2.0)
--- NOTE | 2017-06-25 16:00 | RADIOLOGY REPORT (SQ) ---
EXAM DESCRIPTION: CHEST PA/LAT COMPLETED DATE/TIME: 06/25/2017 3:12 pm REASON FOR STUDY: fever and cough COMPARISON: Abdominal films earlier today Chest film 04/10/2016 EXAM PARAMETERS: NUMBER OF VIEWS: two views TECHNIQUE: Digital Frontal and Lateral radiographic views of the chest acquired. RADIATION DOSE: NA LIMITATIONS: none FINDINGS: LUNGS AND PLEURA: No opacities, masses or pneumothorax. No pleural effusion. MEDIASTINUM AND HILAR STRUCTURES: No masses or contour abnormalities. HEART AND VASCULAR STRUCTURES: Stable mild cardiomegaly BONES: Lower cervical fusion hardware HARDWARE: Left-sided permanent central line tip superior vena cava. Implanted cardiac monitoring dev ice over the left upper quadrant OTHER: No other significant finding. IMPRESSION: No acute infiltrates TECHNICAL DOCUMENTATION: JOB ID: [id number] [employer]- All Rights Reserved
[2017-06-25 18:34] LABS: ANION GAP 7 (5-19); BLOOD UREA NITROGEN 20 mg/dL (7-20); CALCIUM 9.1 mg/dL (8.4-10.2); CARBON DIOXIDE 26 mmol/L (22-30); CHLORIDE 103 mmol/L (98-107); CREATININE RESULT 0.81 mg/dL (0.52-1.25); GLUCOSE 206 mg/dL (75-110); POTASSIUM 3.5 mmol/L (3.6-5.0); SODIUM 135.8 mmol/L (137-145)
[2017-06-25] MEDS: DEXTROSE 5%-1/2 NORMAL SALINE 1,000 ML IV PRN (20:24)
[2017-06-26 00:39] LABS: ANION GAP 8 (5-19); BLOOD UREA NITROGEN 20 mg/dL (7-20); CALCIUM 9.3 mg/dL (8.4-10.2); CARBON DIOXIDE 25 mmol/L (22-30); CHLORIDE 105 mmol/L (98-107); CREATININE RESULT 0.72 mg/dL (0.52-1.25); POTASSIUM 3.3 mmol/L (3.6-5.0); SODIUM 137.7 mmol/L (137-145)
[2017-06-26 00:50] LABS: GLUCOSE 34 mg/dL (75-110)
[2017-06-26] MEDS ORDERED: INSULIN REG, HUMAN 100 UNIT/ML 3 ML VIAL (PYX) ONE (02:08)
[2017-06-26] MEDS: NORMAL SALINE 100 ML with INSULIN REGULAR, HUMAN 100 UNIT IV PRN ×2 (02:22)
[2017-06-26] MEDS: DEXTROSE 5%-1/2 NORMAL SALINE 1,000 ML IV PRN (02:22)
[2017-06-26] MEDS ORDERED: POTASSI CL 20 MEQ/D5-1/2NS 1L 1000 ML IV PRN (03:11)
[2017-06-26] MEDS ORDERED: POTASSIUM CHLORIDE 10 MEQ TABLET.SA PO ONE ×2 (03:30→08:02)
[2017-06-26 05:55] LABS: ABSOLUTE LYMPHOCYTES (AUTO) 1.8 10^3/uL (0.5-4.7); ABSOLUTE MONOCYTES (AUTO) 0.9 10^3/uL (0.1-1.4); BASOPHILS % (AUTO) 0.3 % (0-2); EOSINOPHILS % (AUTO) 0.1 % (0-6); HEMATOCRIT 33.8 % (36.0-47.0); HEMOGLOBIN 11.6 g/dL (12.0-15.5); LYMPHOCYTES % (AUTO) 18.6 % (13-45); MEAN CORPUSCULAR HEMOGLOBIN 31.1 pg (27.0-33.4); MEAN CORPUSCULAR HGB CONC 34.3 g/dL (32.0-36.0); MEAN CORPUSCULAR VOLUME 91 fl (80-97); MONOCYTES % (AUTO) 9.1 % (3-13); RED BLOOD COUNT 3.74 10^6/uL (3.72-5.28); SEGMENTED NEUTROPHILS % (AUTO) 71.9 % (42-78); WHITE BLOOD COUNT 9.8 10^3/uL (4.0-10.5)
[2017-06-26 06:23] LABS: ANION GAP 5 (5-19); BLOOD UREA NITROGEN 17 mg/dL (7-20); CARBON DIOXIDE 27 mmol/L (22-30); CHLORIDE 104 mmol/L (98-107); CREATININE RESULT 0.76 mg/dL (0.52-1.25); GLUCOSE 74 mg/dL (75-110); MAGNESIUM 1.8 mg/dL (1.6-2.3); PHOSPHORUS 2.6 mg/dL (2.5-4.5); POTASSIUM 3.4 mmol/L (3.6-5.0); SODIUM 136.1 mmol/L (137-145)
[2017-06-26] MEDS: ONDANSETRON HCL INJ/PF 4 MG/2 ML SDV IV PRN (07:48)
--- NOTE | 2017-06-26 08:19 | PDOC PROGRESS REPORT ---
Subjective Progress Note for:: 06/26/17 Subjective:: Pt states that she is not feeling well today. Pt states that she can not explain it. Pt states that she feels weak. Reason For Visit: DKA Physical Exam Vital Signs: Temp Pulse Resp BP Pulse Ox 98.7 F 81 16 120/52 L 95 06/26/17 07:58 06/26/17 07:58 06/26/17 07:58 06/26/17 07:58 06/26/17 07:58 Intake & Output 06/25/17 06/26/17 06/27/17 06:59 06:59 06:59 Intake Total 4093 Output Total 450 Balance 3643 Weight 61.8 kg General appearance: PRESENT: no acute distress, well-developed, well-nourished Head exam: PRESENT: atraumatic, normocephalic Eye exam: PRESENT: conjunctiva pink, EOMI. ABSENT: scleral icterus Ear exam: PRESENT: normal external ear exam Mouth exam: PRESENT: moist, tongue midline Neck exam: ABSENT: carotid bruit, JVD, lymphadenopathy, thyromegaly Respiratory exam: PRESENT: clear to auscultation pretty. ABSENT: rales, rhonchi, wheezes Cardiovascular exam: PRESENT: RRR. ABSENT: diastolic murmur, rubs, systolic murmur Pulses: PRESENT: normal dorsalis pedis pul Vascular exam: PRESENT: normal capillary refill GI/Abdominal exam: PRESENT: normal bowel sounds, soft. ABSENT: distended, guarding, mass, organolmegaly, rebound, tenderness Rectal exam: PRESENT: deferred Extremities exam: PRESENT: full ROM. ABSENT: calf tenderness, clubbing, pedal edema Neurological exam: PRESENT: alert, awake, oriented to person, oriented to place , oriented to time, oriented to situation, CN II-XII grossly intact. ABSENT: motor sensory deficit Psychiatric exam: PRESENT: appropriate affect, normal mood. ABSENT: homicidal ideation, suicidal ideation Skin exam: PRESENT: dry, intact, warm. ABSENT: cyanosis, rash Results Laboratory Results: 06/26/17 04:42 06/26/17 04:42 06/25/17 06/25/17 06/25/17 12:08 13:10 14:47 WBC RBC Hgb Hct MCV MCH MCHC RDW Plt Count Seg Neutrophils % Lymphocytes % Monocytes % Eosinophils % Basophils % Absolute Neutrophils Absolute Lymphocytes Absolute Monocytes Absolute Eosinophils Absolute Basophils Carbonic Acid 1.19 HCO3/H2CO3 Ratio 16:1 ABG pH 7.32 L ABG pCO2 39.6 ABG pO2 69.8 L ABG HCO3 20.1 ABG O2 Saturation 92.8 L ABG Base Excess -5.5 FiO2 ROOM AIR Sodium 137.6 Potassium 4.1 Chloride 102 Carbon Dioxide 19 L Anion Gap 17 BUN 23 H Creatinine 0.87 Est GFR ( Amer) > 60 Est GFR (Non-Af Amer) > 60 Glucose 355 H Calcium 9.1 Phosphorus Magnesium Urine Color YELLOW Urine Appearance CLEAR Urine pH 5.0 Ur Specific [place] 1.023 Urine Protein NEGATIVE Urine Glucose (UA) >=500 H Urine Ketones 20 H Urine Blood NEGATIVE Urine Nitrite NEGATIVE Ur Leukocyte Esterase NEGATIVE Urine WBC (Auto) 0 06/25/17 06/26/17 06/26/17 18:00 00:14 04:42 WBC 9.8 RBC 3.74 Hgb 11.6 L Hct 33.8 L MCV 91 MCH 31.1 MCHC 34.3 RDW 13.0 Plt Count 163 Seg Neutrophils % 71.9 Lymphocytes % 18.6 Monocytes % 9.1 Eosinophils % 0.1 Basophils % 0.3 Absolute Neutrophils 7.0 Absolute Lymphocytes 1.8 Absolute Monocytes 0.9 Absolute Eosinophils 0.0 Absolute Basophils 0.0 Carbonic Acid HCO3/H2CO3 Ratio ABG pH ABG pCO2 ABG pO2 ABG HCO3 ABG O2 Saturation ABG Base Excess FiO2 Sodium 135.8 L 137.7 Potassium 3.5 L 3.3 L Chloride 103 105 Carbon Dioxide 26 25 Anion Gap 7 8 BUN 20 20 Creatinine 0.81 0.72 Est GFR ( Amer) > 60 > 60 Est GFR (Non-Af Amer) > 60 > 60 Glucose 206 H 34 L* Calcium 9.1 9.3 Phosphorus Magnesium Urine Color Urine Appearance Urine pH Ur Specific [place] Urine Protein Urine Glucose (UA) Urine Ketones Urine Blood Urine Nitrite Ur Leukocyte Esterase Urine WBC (Auto) 06/26/17 04:42 WBC RBC Hgb Hct MCV MCH MCHC RDW Plt Count Seg Neutrophils % Lymphocytes % Monocytes % Eosinophils % Basophils % Absolute Neutrophils Absolute Lymphocytes Absolute Monocytes Absolute Eosinophils Absolute Basophils Carbonic Acid HCO3/H2CO3 Ratio ABG pH ABG pCO2 ABG pO2 ABG HCO3 ABG O2 Saturation ABG Base Excess FiO2 Sodium 136.1 L Potassium 3.4 L Chloride 104 Carbon Dioxide 27 Anion Gap 5 BUN 17 Creatinine 0.76 Est GFR ( Amer) > 60 Est GFR (Non-Af Amer) > 60 Glucose 74 L Calcium 9.0 Phosphorus 2.6 Magnesium 1.8 Urine Color Urine Appearance Urine pH Ur Specific [place] Urine Protein Urine Glucose (UA) Urine Ketones Urine Blood Urine Nitrite Ur Leukocyte Esterase Urine WBC (Auto) Impressions: Chest X-Ray 06/25/17 00:00 IMPRESSION: No acute infiltrates Acute Abdomen Series 06/25/17 07:07 IMPRESSION: NO RADIOGRAPHIC EVIDENCE FOR ACUTE ABDOMINAL DISEASE. Assessment & Plan - Diagnosis (1) Diabetic ketoacidosis Qualifiers: Diabetes mellitus type: type 1 Diabetes mellitus complication detail: without coma Qualified Code(s): E10.10 - Type 1 diabetes mellitus with ketoacidosis without coma Is this a current diagnosis for this admission?: Yes Plan: Resolved. Will discontinue IVFs, insulin drip, and will restart insulin drip. (2) Dehydration Is this a current diagnosis for this admission?: Yes Plan: Resolved. (3) Hypokalemia Is this a current diagnosis for this admission?: Yes Plan: Will give additional Potassium. Will check BMP in am (4) Hypomagnesemia Is this a current diagnosis for this admission?: Yes Plan: Will give additional magnesium today. Will check Magnesium in am (5) Acute bronchitis Qualifiers: Bronchitis organism: unspecified organism Qualified Code(s): J20.9 - Acute bronchitis, unspecified Is this a current diagnosis for this admission?: Yes Plan: Will continue Levaquin. (6) Hypogammaglobulinemia Is this a current diagnosis for this admission?: No Plan: Pt will continue to follow up with outpatient physician. (7) SIRS (systemic inflammatory response syndrome) Is this a current diagnosis for this admission?: No Plan: Pt noted to have SBP 92 and elevated RR. Ruled Out. (8) UTI (urinary tract infection) Qualifiers: Urinary tract infection type: acute cystitis Is this a current diagnosis for this admission?: Yes Plan: Concern for UTI: Ruled out (9) Hyponatremia Is this a current diagnosis for this admission?: Yes Plan: Will continue to monitor. Should resolve with normal nutrition. (10) Metabolic acidosis Is this a current diagnosis for this admission?: Yes Plan: In setting of DKA: Resolved. (11) DVT prophylaxis Is this a current diagnosis for this admission?: Yes Plan: SCDs - Time Time Spent with patient: 15-24 minutes Anticipated discharge: Home
[2017-06-26] MEDS: MAGNESIUM SULFATE/D5W 1 GM/100 ML RTUPB IV SCH ×2 (09:09→10:07)
[2017-06-26] MEDS ORDERED: LEVOFLOXACIN 500 MG/D5W RTU 500 MG/100 ML RTUPB IV SCH (12:00)
[2017-06-26] MEDS ORDERED: MAGNESIUM HYDROXIDE SUSP 30 ML UDCUP PO PRN (15:30)
[2017-06-26] MEDS ORDERED: ONDANSETRON HCL INJ/PF 4 MG/2 ML SDV IV PRN (15:30)
[2017-06-26 17:06] LABS: ANION GAP 11 (5-19); BLOOD UREA NITROGEN 16 mg/dL (7-20); CARBON DIOXIDE 20 mmol/L (22-30); CHLORIDE 104 mmol/L (98-107); CREATININE RESULT 0.81 mg/dL (0.52-1.25); MAGNESIUM 2.3 mg/dL (1.6-2.3); SODIUM 135.2 mmol/L (137-145)
[2017-06-26 17:17] LABS: POTASSIUM 5.2 mmol/L (3.6-5.0)
[2017-06-26 17:18] LABS: GLUCOSE 399 mg/dL (75-110)
[2017-06-26] MEDS ORDERED: DEXTROSE 40% GEL 15 GM TUBE X 2 PO PRN (17:51)
[2017-06-26] MEDS ORDERED: DEXTROSE 50%-WATER SYRINGE 25 GM/50 ML DOSE IV PRN (17:51)
[2017-06-26] MEDS ORDERED: DEXTROSE 40% GEL 15 GM TUBE PO PRN (17:51)
[2017-06-26] MEDS ORDERED: INSULIN LISPRO 100 UNIT/ML 3 ML VIAL SUBCUT PRN (17:51)
[2017-06-26] MEDS ORDERED: GLUCAGON,HUMAN RECOMB 1 MG INJ IM PRN (17:51)
[2017-06-26] MEDS ORDERED: DEXTROSE 50%-WATER SYRINGE 12.5 GM/25 ML DOSE IV PRN (17:51)
[2017-06-26] MEDS ORDERED: INSULIN LISPRO 100 UNIT/ML 3 ML VIAL SUBCUT ONE (18:00)
[2017-06-27 04:21] LABS: ABSOLUTE LYMPHOCYTES (AUTO) 1.5 10^3/uL (0.5-4.7); ABSOLUTE MONOCYTES (AUTO) 0.5 10^3/uL (0.1-1.4); ABSOLUTE NEUT (AUTO) 4.9 10^3/uL (1.7-8.2); BASOPHILS % (AUTO) 0.7 % (0-2); EOSINOPHILS % (AUTO) 0.5 % (0-6); HEMATOCRIT 37.1 % (36.0-47.0); HEMOGLOBIN 12.8 g/dL (12.0-15.5); HGB HCT DIFFERENCE 1.3; LYMPHOCYTES % (AUTO) 21.3 % (13-45); MEAN CORPUSCULAR HGB CONC 34.5 g/dL (32.0-36.0); MEAN CORPUSCULAR VOLUME 90 fl (80-97); MONOCYTES % (AUTO) 6.8 % (3-13); RED BLOOD COUNT 4.12 10^6/uL (3.72-5.28); RED CELL DISTRIBUTION WIDTH 13.5 % (11.5-14.0); SEGMENTED NEUTROPHILS % (AUTO) 70.7 % (42-78); WHITE BLOOD COUNT 6.9 10^3/uL (4.0-10.5)
[2017-06-27 04:40] LABS: ANION GAP 8 (5-19); BLOOD UREA NITROGEN 12 mg/dL (7-20); CALCIUM 9.1 mg/dL (8.4-10.2); CARBON DIOXIDE 26 mmol/L (22-30); CHLORIDE 102 mmol/L (98-107); CREATININE RESULT 0.69 mg/dL (0.52-1.25); GLUCOSE 147 mg/dL (75-110); POTASSIUM 4.4 mmol/L (3.6-5.0)
[2017-06-27] MEDS ORDERED: INSULIN LISPRO 100 UNIT/ML 3 ML VIAL SUBCUT ONE (07:45)
--- NOTE | 2017-06-27 07:48 | PDOC DISCHARGE SUMMARY ---
General - Admit/Disc Date/PCP Admission Date/Primary Care Provider: 06/25/17 09:43 Discharge Date: 06/27/17 - Discharge Diagnosis (1) Diabetic ketoacidosis Is this a current diagnosis for this admission?: Yes Summary: Pt admitted for DKA. Pt was placed on insulin drip and then transitioned to her insulin pump. Pt had to be given cover while on insulin pump. Feel that pt would do better with insulin pen needles due to pt not being accurate with carb counting and correcting blood glucose when blood glucose is high. (2) Dehydration Is this a current diagnosis for this admission?: Yes Summary: Resolved. Pt was given IVFs. (3) Hypokalemia Is this a current diagnosis for this admission?: Yes Summary: Pt required potassium replacement. (4) Hypomagnesemia Is this a current diagnosis for this admission?: Yes Summary: Pt required magnesium replacement. (5) Acute bronchitis Is this a current diagnosis for this admission?: Yes Summary: Will continue pt on Levaquin for 5 days. (6) Hypogammaglobulinemia Is this a current diagnosis for this admission?: No Summary: Pt will need to follow up with specialist. (7) SIRS (systemic inflammatory response syndrome) Is this a current diagnosis for this admission?: No Summary: Ruled Out. (8) UTI (urinary tract infection) Is this a current diagnosis for this admission?: Yes Summary: No evidence of UTI: Ruled out. (9) Hyponatremia Is this a current diagnosis for this admission?: Yes Summary: Secondary to Hyperglycemia: Resolved. (10) Metabolic acidosis Is this a current diagnosis for this admission?: Yes Summary: Secondary to DKA: Resolved. - Additional Information Resuscitation Status: Full Code Discharge Diet: Diabetic Discharge Activity: Activity As Tolerated Prescriptions: Levofloxacin [Levaquin 500 mg Tablet] 500 mg PO DAILY #5 tablet Home Medications: Ascorbic Acid [Vitamin C 500 mg Tablet] 500 mg PO DAILY 06/25/17 Aspirin [Aspirin EC] 81 mg PO DAILY 06/25/17 Citalopram Hydrobromide [Celexa 20 mg Tablet] 20 mg PO QHS 06/25/17 Cyclosporine 0.05% Oph Emulsio [Restasis 0.05% Oph Emulsion Pf 0.4 ml] 1 drop OU Q12 06/25/17 Fexofenadine HCl [Neli] 180 mg PO DAILY 06/25/17 Fluticasone Propionate [Flonase Nasal [place] 50 Mcg/[place] 16 gm] 1 spray NAREB Q12 06/25/17 Furosemide [Lasix 40 mg Tablet] 40 mg PO QAM 06/25/17 Guaifenesin/Dextromethorphan [Mucinex Dm ER 600-30 mg Tablet] 1 tab PO Q12 06/25 Insulin Aspart [Novolog Flexpen] 0 unit SUBCUT .SLD SCALE 06/25/17 Losartan/Hydrochlorothiazide [Losartan-Hctz 50-12.5 mg Tab] 1 tab PO DAILY 06/25 Pnv,Calcium 72/Iron/Folic Acid [Pnv Plus Multivit Tab] 1 tab PO DAILY 06/25/17 Pravastatin Sodium [Pravachol] 40 mg PO QHS 06/25/17 Promethazine HCl [Phenergan 25 mg Tablet] 25 mg PO DAILYP PRN 06/25/17 Valacyclovir HCl [Valtrex 500 mg Tablet] 500 mg PO Q48H MDD NEXT DOSE DUE 06/25/17 Levofloxacin [Levaquin 500 mg Tablet] 500 mg PO DAILY #5 tablet 06/27/17 History of Present Illness Patient complains of: elevated Blood glucose and upper Respiratory infection History of Present Illness: JOCELYN ALVAREZ is a 67 year old female presents that the ER with complaint of 5 days of upper respiratory symptoms. Pt states that she went to her PCP were she was placed on Azithromycin and Mucinex. Pt states that her symptoms improved. Pt states that on Sat night she became nauseated and vomited once. Pt states that she has been having chills but no fever. Pt states that on Monday she noticed that she had burning with urination. Hospital Course Hospital Course: Pt is a 67 year old female who presented to the ER with complaint of upper resp infection and elevated blood glucose. Pt was found to be in DKA. Pt was placed on insulin drip. Pt was also given IVFs due to Dehydration. Pt did require electrolyte replacement. Pt was placed on Levaquin to treat pt for Acute Bronchitis. Physical Exam Vital Signs: Temp Pulse Resp BP Pulse Ox 99.0 F 84 18 135/59 H 96 06/27/17 00:08 06/27/17 02:00 06/27/17 00:08 06/27/17 00:08 06/27/17 00:08 Intake & Output 06/26/17 06/27/17 06/28/17 06:59 06:59 06:59 Intake Total 4093 1611 Output Total 450 Balance 3643 1611 Weight 61.8 kg 60.5 kg General appearance: PRESENT: no acute distress, well-developed, well-nourished Head exam: PRESENT: atraumatic, normocephalic Eye exam: PRESENT: conjunctiva pink, EOMI. ABSENT: scleral icterus Ear exam: PRESENT: normal external ear exam Mouth exam: PRESENT: moist, tongue midline Neck exam: ABSENT: carotid bruit, JVD, lymphadenopathy, thyromegaly Respiratory exam: PRESENT: clear to auscultation pretty. ABSENT: rales, rhonchi, wheezes Cardiovascular exam: PRESENT: RRR. ABSENT: diastolic murmur, rubs, systolic murmur Pulses: PRESENT: normal dorsalis pedis pul Vascular exam: PRESENT: normal capillary refill GI/Abdominal exam: PRESENT: normal bowel sounds, soft. ABSENT: distended, guarding, mass, organolmegaly, rebound, tenderness Rectal exam: PRESENT: deferred Extremities exam: PRESENT: full ROM. ABSENT: calf tenderness, clubbing, pedal edema Musculoskeletal exam: PRESENT: full ROM Neurological exam: PRESENT: alert, awake, oriented to person, oriented to place , oriented to time, oriented to situation, CN II-XII grossly intact. ABSENT: motor sensory deficit Psychiatric exam: PRESENT: appropriate affect, normal mood. ABSENT: homicidal ideation, suicidal ideation Skin exam: PRESENT: dry, intact, warm. ABSENT: cyanosis, rash Results Laboratory Results: 06/27/17 03:48 06/27/17 03:48 06/26/17 06/27/17 06/27/17 16:15 03:48 03:48 WBC 6.9 RBC 4.12 Hgb 12.8 Hct 37.1 MCV 90 MCH 31.0 MCHC 34.5 RDW 13.5 Plt Count 166 Seg Neutrophils % 70.7 Lymphocytes % 21.3 Monocytes % 6.8 Eosinophils % 0.5 Basophils % 0.7 Absolute Neutrophils 4.9 Absolute Lymphocytes 1.5 Absolute Monocytes 0.5 Absolute Eosinophils 0.0 Absolute Basophils 0.0 Sodium 135.2 L 136.0 L Potassium 5.2 H D 4.4 Chloride 104 102 Carbon Dioxide 20 L 26 Anion Gap 11 8 BUN 16 12 Creatinine 0.81 0.69 Est GFR ( Amer) > 60 > 60 Est GFR (Non-Af Amer) > 60 > 60 Glucose 399 H 147 H Calcium 9.0 9.1 Magnesium 2.3 2.0 Impressions: Chest X-Ray 06/25/17 00:00 IMPRESSION: No acute infiltrates Acute Abdomen Series 06/25/17 07:07 IMPRESSION: NO RADIOGRAPHIC EVIDENCE FOR ACUTE ABDOMINAL DISEASE. Plan Time Spent: Greater than 30 Minutes
[2017-06-27 08:42] VITALS: BP 145/81
== END 2017-06-27 09:12 | disposition home or self-care (01) | DRG 638 ==
LOC: ER 06:33 → EH 09:43 → 3N 11:09
PROVIDERS: ADMIT Hospitalist; ATTEND Hospitalist
DX: E10.10 Type 1 diabetes mellitus with ketoacidosis without coma (principal); D80.1 Nonfamilial hypogammaglobulinemia; E87.1 Hypo-osmolality and hyponatremia; N39.0 Urinary tract infection, site not specified; J20.9 Acute bronchitis, unspecified; I10 Essential (primary) hypertension; E86.0 Dehydration; Z79.82 Long term (current) use of aspirin; Z79.4 Long term (current) use of insulin; Z79.899 Other long term (current) drug therapy
CPT/HCPCS: 36415; 36591; 36600; 71020; 74022; 80048; 80053; 81001; 82803; 82962; 83036; 83690; 83735; 84100; 85025; 87040; 87086; 87804; 96361; 96374; 96375; 99291; J0780; J1815; J1956; J2405; J3475; J3480; J3490; J7030; J7120

== ENCOUNTER 2017-07-12 07:30 | Outpatient (CLI) | payer MEDICARE, OTHER ==
[2017-07-12 08:49] VITALS: BP 123/68
== END 2017-07-12 13:59 | disposition home or self-care (01) ==
LOC: II 07:30 → 5TH 07:31 → II 13:59
PROVIDERS: ATTEND Internal Medicine
PROC: 30243S1 Transfusion of Nonautologous Globulin into Central Vein, Percutaneous Approach (ICD-10-PCS; principal; 2017-07-12)
PROC: 3E0433Z Introduction of Anti-inflammatory into Central Vein, Percutaneous Approach (ICD-10-PCS; 2017-07-12)
PROC: 3E043GC Introduction of Other Therapeutic Substance into Central Vein, Percutaneous Approach (ICD-10-PCS; 2017-07-12)
DX: D80.1 Nonfamilial hypogammaglobulinemia (principal)
CPT/HCPCS: 96367; 96375; J1200; A9270; J1100; J1566 ×2; 96365; 96366; J3490

== ENCOUNTER 2017-08-23 07:43 | Outpatient (CLI) | payer MEDICARE, OTHER ==
[2017-08-23 08:07] VITALS: BP 143/64
== END 2017-08-23 13:31 | disposition home or self-care (01) ==
LOC: II 07:43 → 5TH 07:46 → II 13:31
PROVIDERS: ATTEND Internal Medicine
PROC: 30243S1 Transfusion of Nonautologous Globulin into Central Vein, Percutaneous Approach (ICD-10-PCS; principal; 2017-08-23)
PROC: 3E0433Z Introduction of Anti-inflammatory into Central Vein, Percutaneous Approach (ICD-10-PCS; 2017-08-23)
PROC: 3E043GC Introduction of Other Therapeutic Substance into Central Vein, Percutaneous Approach (ICD-10-PCS; 2017-08-23)
DX: D80.1 Nonfamilial hypogammaglobulinemia (principal)
CPT/HCPCS: 96365; 96366; 96374; 96375; 96360; J1200; A9270; J1100; J1566 ×2; 96361; J3490

== ENCOUNTER 2017-10-04 08:39 | Outpatient (CLI) | payer MEDICARE, OTHER ==
[~2017-10-04 08:39] MED LIST changes: +DEXAMETHASONE SOD PHOSPHATE 10 MG in DEXTROSE 5%-WATER 50 ML IV PRN; -DEXAMETHASONE SOD PHOSPHATE 10 MG in NORMAL SALINE 50 ML IV PRN; -DEXTROSE 5%-WATER 250 ML IV PRN; -IGA IV PRN; -IMMUN GLOB IV PRN; +IMMUNE GLOB,GAM CAPRYLATE(IGG) 20 GM, IMMUNE GLOB,GAM CAPRYLATE(IGG) 10 GM in CONTAINER... IV PRN; +NORMAL SALINE 250 ML IV PRN; -SUCR IV PRN; -[UNRECOGNIZED DRUG - OTHER] IV PRN
[2017-10-04 09:53] VITALS: BP 115/76
== END 2017-10-04 12:59 | disposition home or self-care (01) ==
LOC: II 08:39 → 5TH 08:44 → II 12:59
PROVIDERS: ATTEND Internal Medicine
PROC: 30243S1 Transfusion of Nonautologous Globulin into Central Vein, Percutaneous Approach (ICD-10-PCS; principal; 2017-10-04)
PROC: 3E0433Z Introduction of Anti-inflammatory into Central Vein, Percutaneous Approach (ICD-10-PCS; 2017-10-04)
PROC: 3E043GC Introduction of Other Therapeutic Substance into Central Vein, Percutaneous Approach (ICD-10-PCS; 2017-10-04)
DX: D80.1 Nonfamilial hypogammaglobulinemia (principal)
CPT/HCPCS: 96413; 96415; 96367; 96374; 96375; 96417; J1561 ×2; J1200; A9270; J1100; 96365; 96366; J3490

== ENCOUNTER 2017-11-15 08:20 | Outpatient (CLI) | payer MEDICARE, OTHER ==
[~2017-11-15 08:20] MED LIST changes: +DEXAMETHASONE SOD PHOS INJ 10 MG/1 ML VIAL IV PRN; -DEXAMETHASONE SOD PHOSPHATE 10 MG in DEXTROSE 5%-WATER 50 ML IV PRN; +DEXTROSE 5%-WATER 250 ML IV PRN; -NORMAL SALINE 250 ML IV PRN
[2017-11-15 09:03] VITALS: BP 133/60
== END 2017-11-15 11:16 | disposition home or self-care (01) ==
LOC: II 08:20 → 5TH 08:31 → II 11:16
PROVIDERS: ATTEND Internal Medicine
PROC: 30243S1 Transfusion of Nonautologous Globulin into Central Vein, Percutaneous Approach (ICD-10-PCS; principal; 2017-11-15)
PROC: 3E0433Z Introduction of Anti-inflammatory into Central Vein, Percutaneous Approach (ICD-10-PCS; 2017-11-15)
PROC: 3E043GC Introduction of Other Therapeutic Substance into Central Vein, Percutaneous Approach (ICD-10-PCS; 2017-11-15)
DX: D80.1 Nonfamilial hypogammaglobulinemia (principal)
CPT/HCPCS: 96367; 96374; 96375; J1561 ×2; J1200; A9270; J1100; 96365; 96366; J3490

== ENCOUNTER 2017-12-27 09:30 | Outpatient (CLI) | payer MEDICARE, OTHER ==
[~2017-12-27 09:30] MED LIST changes: -DEXAMETHASONE SOD PHOS INJ 10 MG/1 ML VIAL IV PRN; +DEXAMETHASONE SOD PHOSPHATE 10 MG in DEXTROSE 5%-WATER 50 ML IV PRN
[2017-12-27 09:56] VITALS: BP 141/77
== END 2017-12-27 12:04 | disposition home or self-care (01) ==
LOC: II 09:30 → 5TH 09:48 → II 12:04
PROVIDERS: ATTEND Internal Medicine
PROC: 30243S1 Transfusion of Nonautologous Globulin into Central Vein, Percutaneous Approach (ICD-10-PCS; principal; 2017-12-27)
PROC: 3E0433Z Introduction of Anti-inflammatory into Central Vein, Percutaneous Approach (ICD-10-PCS; 2017-12-27)
PROC: 3E043GC Introduction of Other Therapeutic Substance into Central Vein, Percutaneous Approach (ICD-10-PCS; 2017-12-27)
DX: D80.1 Nonfamilial hypogammaglobulinemia (principal)
CPT/HCPCS: 96365; 96366; 96367; 96374; 96375; J1561 ×2; J1200; A9270; J1100; J3490

== ENCOUNTER → 2018-01-30 | Outpatient (CLI) | payer MEDICARE, OTHER ==
--- NOTE | 2018-01-30 13:31 | WOMENS IMAGING REPORT ---
EXAM DESCRIPTION: 3D SCREENING MAMMO BILAT COMPLETED DATE/TIME: 01/30/2018 11:20 am REASON FOR STUDY: BILATERAL SCREENING MAMMO 3D/Z12.31 Z12.31 ENCNTR SCREEN MAMMOGRAM FOR MALIGNANT NEOPLASM OF [place] COMPARISON: 2006 to 2016 TECHNIQUE: Standard craniocaudal and mediolateral oblique views of each breast recorded using digita l acquisition and breast tomosynthesis. LIMITATIONS: None. FINDINGS: No masses, calcifications or architectural distortion. No areas of suspicion. Read with the assistance of CAD. [facility] - R2 Cenova Version 1.3 .[facility] - R2 Cenova Version 1.3 .[facility] - R2 Cenova Version 2.4 [place] [place] C[place]ova [place] 2.4 .[facility] - R2 Outboard Motorboat Rigger Version 9.2 IMPRESSION: NORMAL MAMMOGRAM. BIRADS 1. BREAST DENSITY: c. The breasts are heterogeneously dense, which may obscure small masses. BIRAD: 1 NEGATIVE RECOMMENDATION: ROUTINE SCREENING COMMENT: The patient has been notified of the results by letter per SA requirements. Additional no tification policies are in place for contacting patient with suspicious or incomplete findings. Quality ID #[id number]: The [employer] recommends an annual screening mammogram for women aged 40 years or over. This facility utilizes a reminder system to ensure that all patients receive reminder letters, and/or direct phone calls for appointments. This includes reminders for routine scr eening mammograms, diagnostic mammograms, or other Breast Imaging Interventions when appropriate. Th is patient will be placed in the appropriate reminder system. The [employer] (ACR) has developed recommendations for screening MRI of the breast s in certain patient populations, to be used in conjunction with mammography. Breast MRI surveillanc e may be appropriate for women with more than 20% lifetime risk of developing breast cancer as deter mined by genetic testing, significant family history of the disease, or history of mantle radiation f or Hodgkins Disease. ACR Practice Guidelines 2008. DBT Technology DBT is a type of tomographic mammography. With conventional mammography, overlapping breast tissue ma y make lesions difficult to detect, even with good compression. DBT uses an x-ray tube that rotates a round the breast, taking images at different angles. These images are then combined to create thin sl ices of the breast that the radiologist can view as a 3D reconstruction. The iversity unit can perform full-field digital mammograms (2D imaging); or DBT (3D imaging); or both, in a combination mode that quickly performs both the mammogram and the tomosynthesis scan while the breast is still compressed. PQRS 6045F: Fluoroscopic imaging is not utilized for breast tomosynthesis. TECHNICAL DOCUMENTATION: FINDING NUMBER: (1) ASSESSMENT: (1) JOB ID: [id number] [employer]- All Rights Reserved Reading location - IP/workstation name: [facility]-[email or web address]
== END ==
LOC: WI 10:44
PROVIDERS: ATTEND Obstetrics & Gynecology Gynecology
DX: Z12.31 Encounter for screening mammogram for malignant neoplasm of breast (principal)
CPT/HCPCS: 77063; 77067

== ENCOUNTER 2018-02-04 06:57 | Inpatient (IN) | payer MEDICARE, OTHER ==
[2018-02-04] MEDS ORDERED: NORMAL SALINE 1000 ML 1,000 ML IV ONE ×2 (07:17→08:49)
[2018-02-04] MEDS ORDERED: ONDANSETRON HCL INJ/PF 4 MG/2 ML SDV IV ONE (07:24)
--- NOTE | 2018-02-04 07:28 | ER Document Report ---
ED General - General Chief Complaint: High Blood Sugar Stated Complaint: BLOOD SUGAR PROBLEM Time Seen by Provider: 02/04/18 07:16 TRAVEL OUTSIDE OF THE [place] IN LAST 30 DAYS: No - HPI Notes: Patient is a 67-year-old female who is an insulin dependent diabetic who presents to the ED complaining of dry mouth, voiding small amounts, general body ache, nausea/vomiting 1 day. Patient states that she did have a subjective fever yesterday she felt "warm." Patient is concerned that she may have another UTI and states that her blood glucose levels have been elevated over the last 2 days. Patient states that she has had a history of DKA in the past and that the symptoms mimic that. She denies any drug allergies. Patient states that she has not been eating or drinking much over the last day. Denies any drug allergies. Patient states that her sugars have been in the high 300s to maybe 400s. Denies any headache, neck pain, changes in vision/speech/ mentation/hearing, URI, sore throat, chest pain, palpitations, syncope, cough, shortness of breath, wheeze, dyspnea, abdominal pain, diarrhea, hematuria, loss of control of bowel or bladder, numbness/tingling, saddle anesthesia, muscle paralysis/weakness, or rash. PMH coronary artery disease and IgG deficiency as well. - Related Data Allergies/Adverse Reactions: No Known Allergies Allergy (Verified 06/25/17 07:51) Past Medical History - Social History Smoking Status: Never Smoker Family History: Reviewed & Not Pertinent - Past Medical History Cardiac Medical History: Reports: Hx Hypertension Denies: Hx Congestive Heart Failure, Hx Heart Attack, Hx Heart Murmur Pulmonary Medical History: Reports: Hx Bronchitis, Hx COPD Denies: Hx Asthma, Hx Pneumonia, Hx Tuberculosis Neurological Medical History: Denies: Hx Cerebrovascular Accident, Hx Seizures Endocrine Medical History: Reports: Hx Diabetes Mellitus Type 1 Renal/ Medical History: Denies: Hx Peritoneal Dialysis GI Medical History: Denies: Hx Hepatitis, Hx Hiatal Hernia, Hx Ulcer Musculoskeletal Medical History: Reports Hx Arthritis Psychiatric Medical History: Denies: Hx Depression Infectious Medical History: Denies: Hx Hepatitis Past Surgical History: Reports: Hx Hysterectomy. Denies: Hx Mastectomy, Hx Open Heart Surgery, Hx Pacemaker - Immunizations Hx Diphtheria, Pertussis, Tetanus Vaccination: Yes Hx Pneumococcal Vaccination: 03/18/09 Review of Systems - Review of Systems -: Yes All other systems reviewed and negative Physical Exam - Vital signs Vitals: Temp Pulse Resp BP Pulse Ox 98.7 F 93 16 98/49 L 97 02/04/18 07:02 02/04/18 07:02 02/04/18 07:02 02/04/18 07:02 02/04/18 07:02 - Notes Notes: PHYSICAL EXAMINATION: GENERAL: Well-appearing, well-nourished and in no acute distress. HEAD: Atraumatic, normocephalic. EYES: Pupils equal round and reactive to light, extraocular movements intact, sclera anicteric, conjunctiva are normal. ENT: Nares patent and without discharge. oropharynx clear without exudates. No tonsilar hypertrophy or erythema. mildly still moist mucous membranes. NECK: Normal range of motion, supple without lymphadenopathy LUNGS: Breath sounds clear to auscultation bilaterally and equal. No wheezes rales or rhonchi. HEART: Regular rate and rhythm without murmurs, rubs, gallops. ABDOMEN: Soft, nontender, nondistended abdomen. No guarding, no rebound. No masses appreciated. Normal bowel sounds present. No CVA tenderness bilaterally. Musculoskeletal: FROM to passive/active. Strength 5+/5. Extremities: No cyanosis, clubbing, or edema b/l. Peripheral pulses 2+. Capillary refill less than 3 seconds. NEUROLOGICAL: Cranial nerves grossly intact. Normal speech, normal gait. PSYCH: Normal mood, normal affect. SKIN: Warm, Dry, normal turgor, no rashes or lesions noted. Course - Re-evaluation Re-evalutation: 02/04/18 08:26 Pt is starting to become acidotic, but just barely. She has no anion gap at this time (18). Reviewed with Dr. Velázquez. We will try to correct her very early acidosis and re-evaluate. Pt is receiving fluids and will get 15 units of insulin as well. She has no active vomiting. 02/04/18 09:47 Pt given 15 un insulin and fluid bolus. I did speak with Dr. parker and no labs are needed at this time for her IGG deficiency. 02/04/18 11:47 Patient's pH has decreased from 7.29-7.23 with a decrease in the bicarb from 19.6-18. Anion gap started at 18 and is now at 19 which is the cutoff to being 'high.' Lactic Acid 2.9 which I suspect is secondary to the DKA. + ketones in the urine. As reviewed above, we were unsuccessful and correcting the acidosis. At this time, we will start insulin IV protocol and admit to the hospitalist. Reviewed with Dr. Pierce who will eval the patient. 02/04/18 12:03 Dr. Pierce accepted patient to IMCU. - Vital Signs Vital signs: Temp Pulse Resp BP Pulse Ox 98.7 F 93 16 102/36 L 95 02/04/18 07:02 02/04/18 07:02 02/04/18 07:02 02/04/18 11:01 02/04/18 11:01 - Laboratory Result Diagrams: 02/04/18 07:45 02/04/18 11:10 Laboratory results interpreted by me: 02/04/18 02/04/18 02/04/18 07:45 08:23 09:36 VBG pH 7.29 L VBG HCO3 19.6 L Sodium 135.3 L Chloride 97 L Carbon Dioxide 20 L BUN 23 H Glucose 432 H* POC Glucose Lactic Acid Total Bilirubin 1.7 H AST 38 H Alkaline Phosphatase Total Protein Urine Glucose (UA) >=500 H Urine Ketones 80 H Urine Ascorbic Acid 20 H 02/04/18 02/04/18 02/04/18 09:47 11:02 11:10 VBG pH VBG HCO3 Sodium Chloride Carbon Dioxide BUN Glucose POC Glucose 432 H* 430 H* Lactic Acid 2.9 H Total Bilirubin AST Alkaline Phosphatase Total Protein Urine Glucose (UA) Urine Ketones Urine Ascorbic Acid 02/04/18 02/04/18 11:10 11:10 VBG pH 7.23 L VBG HCO3 18.0 L Sodium 136.6 L Chloride Carbon Dioxide 17 L BUN 25 H Glucose 398 H POC Glucose Lactic Acid Total Bilirubin 1.5 H AST Alkaline Phosphatase 37 L Total Protein 6.1 L Urine Glucose (UA) Urine Ketones Urine Ascorbic Acid Discharge - Discharge Clinical Impression: DKA (diabetic ketoacidoses) Qualifiers: Diabetes mellitus type: type 1 Diabetes mellitus complication detail: without coma Qualified Code(s): E10.10 - Type 1 diabetes mellitus with ketoacidosis without coma Condition: Stable Disposition: ADMITTED INPATIENT Admitting Provider: Hospitalist - Dr. pierce Unit Admitted: IMCU Referrals: ALEXANDRE MARIA MD [Primary Care Provider] - Follow up as needed
[2018-02-04 07:58] LABS: ABSOLUTE LYMPHOCYTES (AUTO) 1.1 10^3/uL (0.5-4.7); ABSOLUTE MONOCYTES (AUTO) 0.5 10^3/uL (0.1-1.4); ABSOLUTE NEUT (AUTO) 5.8 10^3/uL (1.7-8.2); BASOPHILS % (AUTO) 0.2 % (0-2); HEMATOCRIT 37.4 % (36.0-47.0); HEMOGLOBIN 12.5 g/dL (12.0-15.5); LYMPHOCYTES % (AUTO) 14.7 % (13-45); MEAN CORPUSCULAR HGB CONC 33.4 g/dL (32.0-36.0); MEAN CORPUSCULAR VOLUME 93 fl (80-97); MONOCYTES % (AUTO) 7.2 % (3-13); PLATELET COUNT 173 10^3/uL (150-450); RED BLOOD COUNT 4.03 10^6/uL (3.72-5.28); RED CELL DISTRIBUTION WIDTH 13.4 % (11.5-14.0); SEGMENTED NEUTROPHILS % (AUTO) 77.9 % (42-78); TOTAL CELLS COUNTED % (AUTO) 100 %; WHITE BLOOD COUNT 7.5 10^3/uL (4.0-10.5)
[2018-02-04 08:26] LABS: ALANINE AMINOTRANSFERASE 26 U/L (9-52); ALBUMIN 3.9 g/dL (3.5-5.0); ALKALINE PHOSPHATASE 45 U/L (38-126); ANION GAP 18 (5-19); ASPARTATE AMINO TRANSFERASE 38 U/L (14-36); BILIRUBIN,DIRECT 0.4 mg/dL (0.0-0.4); BILIRUBIN,TOTAL 1.7 mg/dL (0.2-1.3); BLOOD UREA NITROGEN 23 mg/dL (7-20); CALCIUM 9.6 mg/dL (8.4-10.2); CARBON DIOXIDE 20 mmol/L (22-30); CHLORIDE 97 mmol/L (98-107); POTASSIUM 4.1 mmol/L (3.6-5.0); SODIUM 135.3 mmol/L (137-145); TOTAL PROTEIN 6.5 g/dL (6.3-8.2)
[2018-02-04 08:32] LABS: VENOUS BLOOD BASE EXCESS -6.6 mmol/L; VENOUS BLOOD HCO3 19.6 mmol/L (20-32); VENOUS BLOOD PCO2 41.6 mmHg (35-63); VENOUS BLOOD PH 7.29 (7.30-7.42)
[2018-02-04 08:34] LABS: GLUCOSE 432 mg/dL (75-110)
[2018-02-04] MEDS ORDERED: INSULIN REG, HUMAN 100 UNIT/ML 3 ML VIAL (PYX) SUBCUT ONE (08:50)
[2018-02-04] MEDS ORDERED: MORPHINE SULFATE 10 MG/ML INJ IV ONE (10:05)
[2018-02-04 10:12] LABS: APPEARANCE,URINE CLEAR; BILIRUBIN,URINE NEGATIVE (NEGATIVE); COLOR,URINE YELLOW; GLUCOSE, URINE >=500 mg/dL (NEGATIVE); KETONES,URINE 80 mg/dL (NEGATIVE); LEUKOCYTE ESTERASE,URINE NEGATIVE (NEGATIVE); NITRITE,URINE NEGATIVE (NEGATIVE); PROTEIN,URINE NEGATIVE (NEGATIVE); URINE SPECIFIC GRAVITY 1.018; UROBILINOGEN,URINE NEGATIVE mg/dL (<2.0)
[2018-02-04 11:24] LABS: VENOUS BLOOD BASE EXCESS -9.1 mmol/L; VENOUS BLOOD PCO2 43.7 mmHg (35-63); VENOUS BLOOD PH 7.23 (7.30-7.42)
[2018-02-04 11:37] LABS: ALANINE AMINOTRANSFERASE 27 U/L (9-52); ALBUMIN 3.6 g/dL (3.5-5.0); ALKALINE PHOSPHATASE 37 U/L (38-126); ANION GAP 19 (5-19); ASPARTATE AMINO TRANSFERASE 26 U/L (14-36); BILIRUBIN,DIRECT 0.3 mg/dL (0.0-0.4); BILIRUBIN,TOTAL 1.5 mg/dL (0.2-1.3); BLOOD UREA NITROGEN 25 mg/dL (7-20); CALCIUM 9.1 mg/dL (8.4-10.2); CARBON DIOXIDE 17 mmol/L (22-30); CHLORIDE 101 mmol/L (98-107); POTASSIUM 4.1 mmol/L (3.6-5.0); SODIUM 136.6 mmol/L (137-145); TOTAL PROTEIN 6.1 g/dL (6.3-8.2)
[2018-02-04 11:43] LABS: GLUCOSE 398 mg/dL (75-110)
[2018-02-04] MEDS ORDERED: DEXTROSE 50%-WATER 25 GM/50 ML DISP.SYRIN IV PRN ×4 (11:45→12:25)
[2018-02-04] MEDS ORDERED: NORMAL SALINE 100 ML with INSULIN REGULAR, HUMAN 100 UNIT IV PRN ×4 (11:45→12:25)
[2018-02-04] MEDS ORDERED: DEXTROSE 40% GEL 15 GM TUBE PO PRN ×5 (11:45→21:36)
[2018-02-04] MEDS ORDERED: GLUCAGON,HUMAN RECOMB 1 MG INJ IM PRN ×3 (11:45→21:36)
[2018-02-04] MEDS ORDERED: INSULIN REG, HUMAN 100 UNIT/ML 3 ML VIAL (PYX) ONE (12:03)
[2018-02-04] MEDS ORDERED: NORMAL SALINE 1000 ML 1,000 ML IV PRN ×2 (12:04→12:17)
[2018-02-04] MEDS ORDERED: IPRATROPIUM/ALBUTEROL 0.5-2.5 MG/3 ML AMPUL NEB PRN (12:17)
[2018-02-04] MEDS ORDERED: OXYCODONE-ACETAMINOPHEN 5-325 MG TABLET PO PRN (12:17)
--- NOTE | 2018-02-04 12:40 | PDOC H&P ---
History of Present Illness Admission Date/PCP: 02/04/18 12:07 ALEXANDRE MARIA MD History of Present Illness: JOCELYN ALVAREZ is a 67 year old female patient with past medical history of insulin-dependent diabetes mellitus on insulin pump, COPD and hypertension presented with chief complaint of elevated blood sugar. Since patient is heavily sedated with morphine I am unable to get information from her. Brief history is obtained from her and ER attending note patient presented to to ER with chief complaint of dry mouth weakness generalized body ache and nausea/vomiting of 1 day duration. Patient associates her current symptoms as prodrome to DKA which she had this before. Patient also complains of subjective fever patient states that she has not been eating or drinking much over the last day. Per her patient is compliant with her daily insulin and diet. Detailed history and review of systems unobtainable. Past Medical History Cardiac Medical History: Reports: Hypertension Denies: Congestive Heart Failure, Myocardial Infarction, Heart Murmur Pulmonary Medical History: Reports: Bronchitis, Chronic Obstructive Pulmonary Disease (COPD) Denies: Asthma, Pneumonia, Tuberculosis Neurological Medical History: Denies: Seizures Endocrine Medical History: Reports: Diabetes Mellitus Type 1 GI Medical History: Denies: Hepatitis, Hiatal Hernia Musculoskeltal Medical History: Reports: Arthritis Psychiatric Medical History: Denies: Depression Hematology: Reports: Anemia - HX Denies: Hemophilia, Sickle Cell Disease Past Surgical History Past Surgical History: Reports: Hysterectomy Denies: Amputation, Mastectomy, Pacemaker Social History Smoking Status: Never Smoker Frequency of Alcohol Use: None Hx Recreational Drug Use: No Drugs: None Hx Prescription Drug Abuse: No - Advance Directive Resuscitation Status: Full Code Family History Family History: Reviewed & Not Pertinent Parental Family History Reviewed: Yes Children Family History Reviewed: Yes Sibling(s) Family History Reviewed.: Yes Medication/Allergy Allergies/Adverse Reactions: No Known Allergies Allergy (Verified 06/25/17 07:51) Review of Systems ROS unobtainable: Due to mental status Physical Exam Vital Signs: Temp Pulse Resp BP Pulse Ox 98.7 F 93 16 102/36 L 95 02/04/18 07:02 02/04/18 07:02 02/04/18 07:02 02/04/18 11:01 02/04/18 11:01 General appearance: PRESENT: no acute distress Head exam: PRESENT: atraumatic Eye exam: PRESENT: conjunctiva pink Mouth exam: PRESENT: dry mucosa Neck exam: ABSENT: carotid bruit, JVD, lymphadenopathy, thyromegaly Respiratory exam: PRESENT: clear to auscultation pretty. ABSENT: rales, rhonchi, wheezes Cardiovascular exam: PRESENT: RRR. ABSENT: diastolic murmur, rubs, systolic murmur GI/Abdominal exam: PRESENT: normal bowel sounds, soft. ABSENT: distended, guarding, mass, organolmegaly, rebound, tenderness Assessment & Plan - Diagnosis (1) Diabetic ketoacidosis Qualifiers: Diabetes mellitus type: type 1 Diabetes mellitus complication detail: without coma Qualified Code(s): E10.10 - Type 1 diabetes mellitus with ketoacidosis without coma Is this a current diagnosis for this admission?: Yes Plan: We will hydrate the patient judiciously. Patient is going to be started on insulin drip. We will check her blood sugar every an hour and BMP every 2 hours. (2) COPD (chronic obstructive pulmonary disease) Qualifiers: Emphysema type: unspecified Is this a current diagnosis for this admission?: Yes Plan: Patient does not have exacerbation. I will put her on as needed breathing treatment. (3) Hypertension Qualifiers: Hypertension type: essential hypertension Qualified Code(s): I10 - Essential (primary) hypertension Is this a current diagnosis for this admission?: Yes Plan: Continue her home medication
[2018-02-04] MEDS ORDERED: DEXTROSE 5%-1/2 NORMAL SALINE 1,000 ML IV PRN (17:09)
[2018-02-04] MEDS ORDERED: DEXTROSE 40% GEL 15 GM TUBE X 2 PO PRN (21:36)
[2018-02-04] MEDS ORDERED: DEXTROSE 50%-WATER SYRINGE 12.5 GM/25 ML DOSE IV PRN (21:36)
[2018-02-04] MEDS ORDERED: DEXTROSE 50%-WATER SYRINGE 25 GM/50 ML DOSE IV PRN (21:36)
[2018-02-04 23:05] LABS: ANION GAP 11 (5-19); BLOOD UREA NITROGEN 27 mg/dL (7-20); CALCIUM 9.4 mg/dL (8.4-10.2); CARBON DIOXIDE 22 mmol/L (22-30); CHLORIDE 105 mmol/L (98-107); GLUCOSE 115 mg/dL (75-110); POTASSIUM 3.6 mmol/L (3.6-5.0); SODIUM 137.6 mmol/L (137-145)
[2018-02-04] MEDS ORDERED: NORMAL SALINE 500 ML IV ONE (23:45)
[2018-02-05 06:35] LABS: ABSOLUTE LYMPHOCYTES (AUTO) 1.5 10^3/uL (0.5-4.7); ABSOLUTE MONOCYTES (AUTO) 0.7 10^3/uL (0.1-1.4); ABSOLUTE NEUT (AUTO) 7.8 10^3/uL (1.7-8.2); BASOPHILS % (AUTO) 0.2 % (0-2); HEMOGLOBIN 12.6 g/dL (12.0-15.5); LYMPHOCYTES % (AUTO) 15.3 % (13-45); MEAN CORPUSCULAR HEMOGLOBIN 30.8 pg (27.0-33.4); MEAN CORPUSCULAR HGB CONC 33.1 g/dL (32.0-36.0); MEAN CORPUSCULAR VOLUME 93 fl (80-97); MONOCYTES % (AUTO) 6.9 % (3-13); PLATELET COUNT 163 10^3/uL (150-450); RED BLOOD COUNT 4.09 10^6/uL (3.72-5.28); SEGMENTED NEUTROPHILS % (AUTO) 77.6 % (42-78); TOTAL CELLS COUNTED % (AUTO) 100 %
[2018-02-05 06:52] LABS: ANION GAP 17 (5-19); BLOOD UREA NITROGEN 28 mg/dL (7-20); CALCIUM 9.5 mg/dL (8.4-10.2); CARBON DIOXIDE 17 mmol/L (22-30); CHLORIDE 104 mmol/L (98-107); GLUCOSE 327 mg/dL (75-110); SODIUM 137.6 mmol/L (137-145)
[2018-02-05] MEDS: INSULIN LISPRO 100 UNIT/ML 3 ML VIAL SUBCUT PRN ×3 (08:22→21:46)
[2018-02-05] MEDS: LANSOPRAZOLE 30 MG TAB.RAP.DR PO SCH (09:25)
[2018-02-05] MEDS: ENOXAPARIN SODIUM INJ 40 MG/0.4 ML DISP.SYRIN SUBCUT SCH (09:26)
[2018-02-05] MEDS ORDERED: PROMETHAZINE HCL 25 MG TABLET PO PRN (10:26)
[2018-02-05] MEDS ORDERED: DOCUSATE SODIUM 100 MG CAPSULE PO PRN (10:26)
[2018-02-05] MEDS ORDERED: VALACYCLOVIR HCL 500 MG TABLET PO PRN (10:26)
[2018-02-05] MEDS ORDERED: FUROSEMIDE 40 MG TABLET PO PRN (10:26)
[2018-02-05] MEDS ORDERED: DIPHENOXYLATE HCL/ATROP SULF 2.5-0.025 MG TABLET PO PRN (10:26)
[2018-02-05] MEDS ORDERED: (PENDING PHARMACY ID) (Lactulose [Constulose 10 Gm/15 Ml Oral Solution] 30 ML) PO PRN (10:26)
--- NOTE | 2018-02-05 12:22 | PDOC PROGRESS REPORT ---
Subjective Progress Note for:: 02/05/18 Subjective:: This is a 67 years old female patient admitted yesterday with chief complaint of nausea vomiting and her initial workup shows hyperglycemia and metabolic acidosis. Patient has been managed with insulin drip and this morning her blood sugar is around 391. Patient is eating well and she tolerates well her nausea and vomiting has subsided. Patient started to use her insulin pump. Reason For Visit: DKA Physical Exam Vital Signs: Temp Pulse Resp BP Pulse Ox 98.8 F 93 16 104/38 L 96 02/05/18 08:02 02/05/18 09:14 02/05/18 09:14 02/05/18 08:02 02/05/18 09:14 Intake & Output 02/04/18 02/05/18 02/06/18 06:59 06:59 06:59 Intake Total 1539 Balance 1539 Weight 135.9 kg Neck exam: ABSENT: carotid bruit, JVD, lymphadenopathy, thyromegaly Respiratory exam: PRESENT: clear to auscultation pretty. ABSENT: rales, rhonchi, wheezes Cardiovascular exam: PRESENT: RRR. ABSENT: diastolic murmur, rubs, systolic murmur GI/Abdominal exam: PRESENT: normal bowel sounds, soft. ABSENT: distended, guarding, mass, organolmegaly, rebound, tenderness Neurological exam: PRESENT: alert, awake, oriented to time, oriented to situation Results Laboratory Results: 02/05/18 05:27 02/05/18 05:27 02/04/18 02/05/18 02/05/18 22:40 05:27 05:27 WBC 10.0 RBC 4.09 Hgb 12.6 Hct 38.0 MCV 93 MCH 30.8 MCHC 33.1 RDW 14.0 Plt Count 163 Seg Neutrophils % 77.6 Lymphocytes % 15.3 Monocytes % 6.9 Eosinophils % 0.0 Basophils % 0.2 Absolute Neutrophils 7.8 Absolute Lymphocytes 1.5 Absolute Monocytes 0.7 Absolute Eosinophils 0.0 Absolute Basophils 0.0 Sodium 137.6 137.6 Potassium 3.6 4.0 Chloride 105 104 Carbon Dioxide 22 17 L Anion Gap 11 17 BUN 27 H 28 H Creatinine 0.90 0.84 Est GFR ( Amer) > 60 > 60 Est GFR (Non-Af Amer) > 60 > 60 Glucose 115 H 327 H Calcium 9.4 9.5 Assessment & Plan - Diagnosis (1) Diabetic ketoacidosis Qualifiers: Diabetes mellitus type: type 1 Diabetes mellitus complication detail: without coma Qualified Code(s): E10.10 - Type 1 diabetes mellitus with ketoacidosis without coma Is this a current diagnosis for this admission?: Yes Plan: Resolving (2) COPD (chronic obstructive pulmonary disease) Qualifiers: Emphysema type: unspecified Is this a current diagnosis for this admission?: Yes Plan: Patient does not have exacerbation. I will put her on as needed breathing treatment. (3) Hypertension Qualifiers: Hypertension type: essential hypertension Qualified Code(s): I10 - Essential (primary) hypertension Is this a current diagnosis for this admission?: Yes Plan: Continue her home medication
[2018-02-05] MEDS ORDERED: LACTULOSE SYRUP 20 GM/30 ML UDCUP PO PRN (12:30)
[2018-02-05] MEDS: CETIRIZINE 10 MG TABLET PO SCH (18:37)
[2018-02-05] MEDS: ATORVASTATIN CALCIUM 10 MG TABLET PO SCH (21:46)
[2018-02-05] MEDS ORDERED: (PENDING PHARMACY ID) (Pravastatin Sodium [Pravachol] 40 MG) PO SCH (22:00)
[2018-02-06] MEDS: LANSOPRAZOLE 30 MG TAB.RAP.DR PO SCH (05:15)
[2018-02-06 05:59] LABS: ANION GAP 10 (5-19); BLOOD UREA NITROGEN 28 mg/dL (7-20); CALCIUM 9.7 mg/dL (8.4-10.2); CARBON DIOXIDE 23 mmol/L (22-30); CHLORIDE 104 mmol/L (98-107); GLUCOSE 290 mg/dL (75-110); POTASSIUM 4.2 mmol/L (3.6-5.0)
[2018-02-06] MEDS: INSULIN LISPRO 100 UNIT/ML 3 ML VIAL SUBCUT PRN ×4 (07:43→21:26)
[2018-02-06] MEDS ORDERED: (PENDING PHARMACY ID) (Losartan/Hydrochlorothiazide [Hyzaar 50-12.5 Tablet] 1 TAB) PO SCH (08:00)
[2018-02-06] MEDS: ASCORBIC ACID 500 MG TABLET PO SCH (09:36)
[2018-02-06] MEDS: ASPIRIN 81 MG TABLET, ENT COATED PO SCH (09:36)
[2018-02-06] MEDS: ENOXAPARIN SODIUM INJ 40 MG/0.4 ML DISP.SYRIN SUBCUT SCH (09:36)
[2018-02-06] MEDS: HYDROCHLOROTHIAZIDE 12.5 MG TABLET PO SCH (09:36)
[2018-02-06] MEDS: LOSARTAN POTASSIUM 50 MG TABLET PO SCH (09:36)
[2018-02-06] MEDS: PRENATAL VITAMIN W DHA CAPSULE PO SCH (09:36)
[2018-02-06] MEDS ORDERED: (PENDING PHARMACY ID) (Prenatal Vit/Iron Fum/Folic Ac [Prenatal Tablet] 1 TAB) PO SCH (10:00)
[2018-02-06] MEDS: INSULIN LISPRO 100 UNIT/ML 3 ML VIAL SUBCUT SCH ×2 (12:00→18:19)
--- NOTE | 2018-02-06 12:47 | PDOC PROGRESS REPORT ---
Subjective Progress Note for:: 02/06/18 Subjective:: Patient seen and examined while she is sitting on recliner. Is not in pain or distress. She has been started using her insulin pump. Her blood glucose is still high ranging between 314-348. I started her on Humalog 5 units before meals. If her blood glucose is controlled she is a potential discharge for tomorrow. Reason For Visit: DKA Physical Exam Vital Signs: Temp Pulse Resp BP Pulse Ox 98.9 F 88 16 124/51 L 98 02/06/18 11:34 02/06/18 11:34 02/06/18 11:34 02/06/18 11:34 02/06/18 11:34 Intake & Output 02/05/18 02/06/18 02/07/18 06:59 06:59 06:59 Intake Total 1539 829 Balance 1539 829 Weight 135.9 kg 139 kg General appearance: PRESENT: no acute distress, well-developed, well-nourished Head exam: PRESENT: atraumatic, normocephalic Eye exam: PRESENT: conjunctiva pink, EOMI, PERRLA. ABSENT: scleral icterus Ear exam: PRESENT: normal external ear exam Mouth exam: PRESENT: moist, tongue midline Neck exam: ABSENT: carotid bruit, JVD, lymphadenopathy, thyromegaly Respiratory exam: PRESENT: clear to auscultation pretty. ABSENT: rales, rhonchi, wheezes Cardiovascular exam: PRESENT: RRR. ABSENT: diastolic murmur, rubs, systolic murmur Pulses: PRESENT: normal dorsalis pedis pul Vascular exam: PRESENT: normal capillary refill GI/Abdominal exam: PRESENT: normal bowel sounds, soft. ABSENT: distended, guarding, mass, organolmegaly, rebound, tenderness Rectal exam: PRESENT: deferred Extremities exam: PRESENT: full ROM. ABSENT: calf tenderness, clubbing, pedal edema Neurological exam: PRESENT: alert, awake, oriented to person, oriented to place , oriented to time, oriented to situation, CN II-XII grossly intact. ABSENT: motor sensory deficit Psychiatric exam: PRESENT: appropriate affect, normal mood. ABSENT: homicidal ideation, suicidal ideation Skin exam: PRESENT: dry, intact, warm. ABSENT: cyanosis, rash Results Laboratory Results: 02/05/18 05:27 02/06/18 04:51 02/06/18 04:51 Sodium 137.0 Potassium 4.2 Chloride 104 Carbon Dioxide 23 Anion Gap 10 BUN 28 H Creatinine 0.76 Est GFR ( Amer) > 60 Est GFR (Non-Af Amer) > 60 Glucose 290 H Calcium 9.7 Assessment & Plan - Diagnosis (1) Diabetic ketoacidosis Qualifiers: Diabetes mellitus type: type 1 Diabetes mellitus complication detail: without coma Qualified Code(s): E10.10 - Type 1 diabetes mellitus with ketoacidosis without coma Is this a current diagnosis for this admission?: Yes Plan: Resolving (2) COPD (chronic obstructive pulmonary disease) Qualifiers: Emphysema type: unspecified Is this a current diagnosis for this admission?: Yes Plan: Patient does not have exacerbation. I will put her on as needed breathing treatment. (3) Hypertension Qualifiers: Hypertension type: essential hypertension Qualified Code(s): I10 - Essential (primary) hypertension Is this a current diagnosis for this admission?: Yes Plan: Continue her home medication
[2018-02-06] MEDS: CETIRIZINE 10 MG TABLET PO SCH (18:18)
[2018-02-06] MEDS: ATORVASTATIN CALCIUM 10 MG TABLET PO SCH (21:19)
[2018-02-06] MEDS ORDERED: IMMUNE GLOB,GAM CAPRYLATE(IGG) 20 GM, IMMUNE GLOB,GAM CAPRYLATE(IGG) 10 GM in CONTAINER... IV PRN (21:43)
[2018-02-07] MEDS: LANSOPRAZOLE 30 MG TAB.RAP.DR PO SCH (05:11)
[2018-02-07] MEDS ORDERED: IMMUNE GLOB,GAM CAPRYLATE(IGG) 10 GM, IMMUNE GLOB,GAM CAPRYLATE(IGG) 20 GM in CONTAINER... IV PRN (07:39)
[2018-02-07] MEDS ORDERED: DEXTROSE 5%-WATER 250 ML IV PRN (08:00)
[2018-02-07] MEDS ORDERED: DEXAMETHASONE SOD PHOSPHATE 10 MG in DEXTROSE 5%-WATER 50 ML IV PRN (08:00)
[2018-02-07] MEDS ORDERED: DEXAMETHASONE SOD PHOSPHATE 10 MG in NORMAL SALINE 50 ML IV PRN (08:00)
[2018-02-07] MEDS ORDERED: DIPHENHYDRAMINE HCL 50 MG/ML VIAL IV PRN (08:00)
[2018-02-07] MEDS: HYDROCHLOROTHIAZIDE 12.5 MG TABLET PO SCH (09:17)
[2018-02-07] MEDS: ASPIRIN 81 MG TABLET, ENT COATED PO SCH (09:17)
[2018-02-07] MEDS: PRENATAL VITAMIN W DHA CAPSULE PO SCH (09:17)
[2018-02-07] MEDS: ENOXAPARIN SODIUM INJ 40 MG/0.4 ML DISP.SYRIN SUBCUT SCH (09:17)
[2018-02-07] MEDS: ASCORBIC ACID 500 MG TABLET PO SCH (09:17)
[2018-02-07] MEDS: LOSARTAN POTASSIUM 50 MG TABLET PO SCH (09:18)
[2018-02-07] MEDS: INSULIN LISPRO 100 UNIT/ML 3 ML VIAL SUBCUT SCH ×3 (09:19→18:04)
[2018-02-07] MEDS: INSULIN LISPRO 100 UNIT/ML 3 ML VIAL SUBCUT PRN ×4 (09:20→21:59)
--- NOTE | 2018-02-07 13:22 | PDOC PROGRESS REPORT ---
Subjective Progress Note for:: 02/07/18 Subjective:: Seen patient sitting on chair. She is awake alert oriented. She complains of constipation. Otherwise patient's clinical stable. Her blood sugar this morning is 321. Primary oncologist Dr. Alcocer scheduled her for IVIG administration. She has been started also on dexamethasone which will further increase her blood glucose level. Reason For Visit: DKA Physical Exam Vital Signs: Temp Pulse Resp BP Pulse Ox 98.9 F 96 16 115/46 L 98 02/07/18 08:10 02/07/18 08:10 02/07/18 08:10 02/07/18 08:10 02/07/18 08:10 Intake & Output 02/06/18 02/07/18 02/08/18 06:59 06:59 06:59 Intake Total 829 948 600 Balance 829 948 600 Weight 139 kg 136 kg 61.2 kg General appearance: PRESENT: no acute distress, well-developed, well-nourished Head exam: PRESENT: atraumatic, normocephalic Eye exam: PRESENT: conjunctiva pink, EOMI, PERRLA. ABSENT: scleral icterus Ear exam: PRESENT: normal external ear exam Mouth exam: PRESENT: moist, tongue midline Neck exam: ABSENT: carotid bruit, JVD, lymphadenopathy, thyromegaly Respiratory exam: PRESENT: clear to auscultation pretty. ABSENT: rales, rhonchi, wheezes Cardiovascular exam: PRESENT: RRR. ABSENT: diastolic murmur, rubs, systolic murmur Pulses: PRESENT: normal dorsalis pedis pul Vascular exam: PRESENT: normal capillary refill GI/Abdominal exam: PRESENT: normal bowel sounds, soft. ABSENT: distended, guarding, mass, organolmegaly, rebound, tenderness Rectal exam: PRESENT: deferred Extremities exam: PRESENT: full ROM. ABSENT: calf tenderness, clubbing, pedal edema Neurological exam: PRESENT: alert, awake, oriented to person, oriented to place , oriented to time, oriented to situation, CN II-XII grossly intact. ABSENT: motor sensory deficit Psychiatric exam: PRESENT: appropriate affect, normal mood. ABSENT: homicidal ideation, suicidal ideation Skin exam: PRESENT: dry, intact, warm. ABSENT: cyanosis, rash Results Laboratory Results: 02/05/18 05:27 02/06/18 04:51 02/06/18 07:17 Clean Catch Midstream Urine Culture - Final Mixed Urogenital Lily Assessment & Plan - Diagnosis (1) Diabetic ketoacidosis Qualifiers: Diabetes mellitus type: type 1 Diabetes mellitus complication detail: without coma Qualified Code(s): E10.10 - Type 1 diabetes mellitus with ketoacidosis without coma Is this a current diagnosis for this admission?: Yes Plan: She has hyperglycemia still. (2) COPD (chronic obstructive pulmonary disease) Qualifiers: Emphysema type: unspecified Is this a current diagnosis for this admission?: Yes Plan: Patient does not have exacerbation. I will put her on as needed breathing treatment. (3) Hypertension Qualifiers: Hypertension type: essential hypertension Qualified Code(s): I10 - Essential (primary) hypertension Is this a current diagnosis for this admission?: Yes Plan: Continue her home medication
[2018-02-07] MEDS: CETIRIZINE 10 MG TABLET PO SCH (18:04)
[2018-02-07] MEDS: ATORVASTATIN CALCIUM 10 MG TABLET PO SCH (21:40)
[2018-02-08] MEDS: LANSOPRAZOLE 30 MG TAB.RAP.DR PO SCH (05:20)
[2018-02-08] MEDS: ASPIRIN 81 MG TABLET, ENT COATED PO SCH (07:42)
[2018-02-08] MEDS: HYDROCHLOROTHIAZIDE 12.5 MG TABLET PO SCH (07:42)
[2018-02-08] MEDS: INSULIN LISPRO 100 UNIT/ML 3 ML VIAL SUBCUT SCH ×3 (07:42→17:25)
[2018-02-08] MEDS: LOSARTAN POTASSIUM 50 MG TABLET PO SCH (07:42)
[2018-02-08] MEDS: INSULIN LISPRO 100 UNIT/ML 3 ML VIAL SUBCUT PRN ×2 (07:43→11:11)
--- NOTE | 2018-02-08 09:17 | PDOC DISCHARGE SUMMARY ---
General - Admit/Disc Date/PCP Admission Date/Primary Care Provider: 02/04/18 12:07 ALEXANDRE MARIA MD Discharge Date: 02/08/18 - Discharge Diagnosis (1) Diabetic ketoacidosis Is this a current diagnosis for this admission?: Yes (2) COPD (chronic obstructive pulmonary disease) Is this a current diagnosis for this admission?: Yes (3) Hypertension Is this a current diagnosis for this admission?: Yes (4) Hypogammaglobulinemia Is this a current diagnosis for this admission?: Yes - Additional Information Resuscitation Status: Full Code Prescriptions: Insulin Lispro [Humalog Insulin (Lispro) 100 unit/mL] 5 unit SUBCUT AC #3 unit Home Medications: Ascorbic Acid [Vitamin C 500 mg Tablet] 500 mg PO DAILY 02/04/18 Aspirin [Ecotrin 81 mg EC Tablet] 81 mg PO QAM 02/04/18 Cetirizine HCl [Zyrtec 10 mg Tablet] 10 mg PO QPM 02/04/18 Diphenoxylate HCl/Atrop Sulf [Lomotil 2.5 mg Tablet] 1 tab PO TIDP PRN 02/04/18 Docusate Sodium [Colace 100 mg Capsule] 100 mg PO BIDP PRN 02/04/18 Furosemide [Lasix 40 mg Tablet] 40 mg PO DAILYP PRN MDD TAKES WITH POTASSIUM Insulin Aspart [Novolog Flexpen] 0 units SQ .SLIDINGSCALE 02/04/18 Lactulose [Constulose 10 gm/15 mL Oral Solution] 30 ml PO DAILYP PRN 02/04/18 Losartan/Hydrochlorothiazide [Hyzaar 50-12.5 Tablet] 1 tab PO QAM 02/04/18 Potassium Chloride [Klor-Con 10] 10 meq PO DAILYP PRN MDD TAKES WITH FUROSEMIDE 02/04/18 Pravastatin Sodium [Pravachol] 40 mg PO QHS 02/04/18 Vit/Iron Fum/Folic AC [ Tablet] 1 tab PO DAILY 02/04/18 Promethazine HCl [Phenergan 25 mg Tablet] 25 mg PO Q4HP PRN 02/04/18 Valacyclovir HCl [Valtrex 500 mg Tablet] 500 mg PO Q48HP PRN 02/04/18 Insulin Lispro [Humalog Insulin (Lispro) 100 unit/mL] 5 unit SUBCUT AC #3 unit 02/08/18 History of Present Illness History of Present Illness: JOCELYN ALVAREZ is a 67 year old female patient with past medical history of insulin-dependent diabetes mellitus on insulin pump, COPD and hypertension presented with chief complaint of elevated blood sugar. Since patient is heavily sedated with morphine I am unable to get information from her. Brief history is obtained from her and ER attending note patient presented to to ER with chief complaint of dry mouth weakness generalized body ache and nausea/vomiting of 1 day duration. Patient associates her current symptoms as prodrome to DKA which she had this before. Patient also complains of subjective fever patient states that she has not been eating or drinking much over the last day. Per her patient is compliant with her daily insulin and diet. Detailed history and review of systems unobtainable. Hospital Course Hospital Course: This is a 67 years old female patient admitted yesterday with chief complaint of nausea vomiting and her initial workup shows hyperglycemia and metabolic acidosis. Patient has been managed with insulin drip and this morning her blood sugar is around 391. Patient is eating well and she tolerates well her nausea and vomiting has subsided. The insulin drip discontinued and patient started to use her insulin pump. This morning her blood sugar is 298 and she will be given Humalog 20 units. Patient also is being given 5 units of Humalog 3 times a day before meals. During her stay patient has been given IVIG for her hyperglobulinemia by Dr. Alcocer her primary oncologist. Her hospital course is uneventful. Her vital signs stable patient is stable enough to be discharged. I will continue all her home medication and I will prescribe for her short-acting insulin to be given 5 units before every meal. 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 Physical Exam Vital Signs: Temp Pulse Resp BP Pulse Ox 97.9 F 78 20 146/72 H 100 02/08/18 04:25 02/08/18 04:25 02/08/18 04:25 02/08/18 04:25 02/08/18 04:25 Intake & Output 02/07/18 02/08/18 02/09/18 06:59 06:59 06:59 Intake Total 948 1844 Output Total 750 Balance 948 1094 Weight 136 kg 59.4 kg General appearance: PRESENT: no acute distress, well-developed, well-nourished Head exam: PRESENT: atraumatic, normocephalic Eye exam: PRESENT: conjunctiva pink, EOMI, PERRLA. ABSENT: scleral icterus Ear exam: PRESENT: normal external ear exam Mouth exam: PRESENT: moist, tongue midline Neck exam: ABSENT: carotid bruit, JVD, lymphadenopathy, thyromegaly Respiratory exam: PRESENT: clear to auscultation pretty. ABSENT: rales, rhonchi, wheezes Cardiovascular exam: PRESENT: RRR. ABSENT: diastolic murmur, rubs, systolic murmur Pulses: PRESENT: normal dorsalis pedis pul Vascular exam: PRESENT: normal capillary refill GI/Abdominal exam: PRESENT: normal bowel sounds, soft. ABSENT: distended, guarding, mass, organolmegaly, rebound, tenderness Rectal exam: PRESENT: deferred Extremities exam: PRESENT: full ROM. ABSENT: calf tenderness, clubbing, pedal edema Neurological exam: PRESENT: alert, awake, oriented to person, oriented to place , oriented to time, oriented to situation, CN II-XII grossly intact. ABSENT: motor sensory deficit Psychiatric exam: PRESENT: appropriate affect, normal mood. ABSENT: homicidal ideation, suicidal ideation Skin exam: PRESENT: dry, intact, warm. ABSENT: cyanosis, rash Results Laboratory Results: 02/05/18 05:27 02/06/18 04:51 02/06/18 07:17 Clean Catch Midstream Urine Culture - Final Mixed Urogenital Lily Qualifiers - * PATIENT BEING DISCHARGED WITH ANY OF THE FOLLOWING DIAGNOSIS: No
[2018-02-08] MEDS: PRENATAL VITAMIN W DHA CAPSULE PO SCH (09:49)
[2018-02-08] MEDS: ASCORBIC ACID 500 MG TABLET PO SCH (09:49)
[2018-02-08] MEDS: ENOXAPARIN SODIUM INJ 40 MG/0.4 ML DISP.SYRIN SUBCUT SCH (09:49)
[2018-02-08] MEDS ORDERED: INSULIN LISPRO 100 UNIT/ML 3 ML VIAL SUBCUT ONE (10:15)
[2018-02-08 16:48] VITALS: BP 98/49
== END 2018-02-08 17:33 | disposition home or self-care (01) | DRG 638 ==
LOC: ER 06:57 → EH 12:07 → 3W 15:33
PROVIDERS: ADMIT Internal Medicine; ATTEND Internal Medicine
PROC: 3E0F73Z Introduction of Anti-inflammatory into Respiratory Tract, Via Natural or Artificial Opening (ICD-10-PCS; principal; 2018-02-04)
DX: E10.10 Type 1 diabetes mellitus with ketoacidosis without coma (principal); D80.1 Nonfamilial hypogammaglobulinemia; J44.9 Chronic obstructive pulmonary disease, unspecified; I10 Essential (primary) hypertension; M19.90 Unspecified osteoarthritis, unspecified site; D64.9 Anemia, unspecified; K59.00 Constipation, unspecified; Z96.41 Presence of insulin pump (external) (internal); Z79.82 Long term (current) use of aspirin; Z79.4 Long term (current) use of insulin; Z90.710 Acquired absence of both cervix and uterus
CPT/HCPCS: 36415; 80048; 80053; 81001; 82803; 82962; 83036; 83605; 85025; 87086; 96361; 96374; 96375; 96413; 96415; 96417; 99285; J1561; J1100; J1200; J1642; J1650; J1815; J2270; J2405; J3490; J7030; J7040; J7060

== ENCOUNTER 2018-04-05 07:43 | Outpatient (CLI) | payer MEDICARE, OTHER ==
[2018-04-05] MEDS ORDERED: DIPHENHYDRAMINE HCL 50 MG in NORMAL SALINE 50 ML INJ PRN (08:41)
[2018-04-05] MEDS ORDERED: DEXAMETHASONE SOD PHOSPHATE 10 MG in DEXTROSE 5%-WATER 50 ML IV PRN (08:42)
[2018-04-05] MEDS ORDERED: IMMUNE GLOB,GAM CAPRYLATE(IGG) 20 GM, IMMUNE GLOB,GAM CAPRYLATE(IGG) 10 GM in CONTAINER... IV PRN (08:43)
[2018-04-05] MEDS ORDERED: DEXTROSE 5%-WATER 250 ML IV PRN (08:45)
[2018-04-05] MEDS ORDERED: DEXAMETHASONE SOD PHOSPHATE 10 MG in NORMAL SALINE 50 ML IV PRN (08:53)
[2018-04-05 09:19] VITALS: BP 129/58
== END 2018-04-05 13:30 | disposition home or self-care (01) ==
LOC: II 07:43 → 5TH 07:51 → II 13:30
PROVIDERS: ATTEND Internal Medicine
PROC: 30243S1 Transfusion of Nonautologous Globulin into Central Vein, Percutaneous Approach (ICD-10-PCS; principal; 2018-04-05)
PROC: 3E043GC Introduction of Other Therapeutic Substance into Central Vein, Percutaneous Approach (ICD-10-PCS; 2018-04-05)
PROC: 3E0433Z Introduction of Anti-inflammatory into Central Vein, Percutaneous Approach (ICD-10-PCS; 2018-04-05)
DX: D80.1 Nonfamilial hypogammaglobulinemia (principal)
CPT/HCPCS: 96367; J1561 ×2; J1200; A9270; J1100; 96365; 96366; J3490

== ENCOUNTER 2018-05-17 08:57 | Outpatient (CLI) | payer MEDICARE, OTHER ==
[~2018-05-17 08:57] MED LIST changes: -DEXAMETHASONE SOD PHOSPHATE 10 MG in DEXTROSE 5%-WATER 50 ML IV PRN; +DEXAMETHASONE SOD PHOSPHATE 10 MG in NORMAL SALINE 50 ML IV PRN; +DIPHENHYDRAMINE HCL 50 MG in NORMAL SALINE 50 ML IV PRN; -DIPHENHYDRAMINE HCL 50 MG/ML VIAL IV PRN
[2018-05-17 09:29] VITALS: BP 151/72
[2018-05-17] MEDS ORDERED: DEXAMETHASONE SOD PHOS INJ 10 MG/1 ML VIAL IV PRN (09:51)
[2018-05-17] MEDS ORDERED: DIPHENHYDRAMINE HCL 50 MG/ML VIAL IV PRN (09:51)
[2018-05-17] MEDS ORDERED: DEXAMETHASONE SOD PHOSPHATE INJ 4 MG/1 ML VIAL ONE (09:52)
[2018-05-17] MEDS ORDERED: DIPHENHYDRAMINE HCL 50 MG/ML VIAL ONE (09:52)
== END 2018-05-17 13:05 | disposition home or self-care (01) ==
LOC: II 08:57 → 5TH 09:01 → II 13:05
PROVIDERS: ATTEND Internal Medicine
PROC: 30243S1 Transfusion of Nonautologous Globulin into Central Vein, Percutaneous Approach (ICD-10-PCS; principal; 2018-05-17)
PROC: 3E0433Z Introduction of Anti-inflammatory into Central Vein, Percutaneous Approach (ICD-10-PCS; 2018-05-17)
DX: D80.1 Nonfamilial hypogammaglobulinemia (principal)
CPT/HCPCS: 96367; J1561 ×2; J1100; J1200; A9270; 96365; 96366; 96375; J3490

== ENCOUNTER 2018-07-04 10:31 | Outpatient (CLI) | payer MEDICARE, OTHER ==
[~2018-07-04 10:31] MED LIST changes: +IMMUNE GLOB GAM CAPRYLATE IV PRN; -IMMUNE GLOB,GAM CAPRYLATE(IGG) 20 GM, IMMUNE GLOB,GAM CAPRYLATE(IGG) 10 GM in CONTAINER... IV PRN; +[UNRECOGNIZED DRUG - OTHER] IV PRN
[2018-07-04 11:26] VITALS: BP 148/70
[2018-07-04] MEDS: IMMUNE GLOB,GAM CAPRYLATE(IGG) 20 GM, IMMUNE GLOB,GAM CAPRYLATE(IGG) 10 GM in CONTAINER... IV PRN ×2 (13:12→13:36)
== END 2018-07-04 15:27 | disposition home or self-care (01) ==
LOC: II 10:31 → 5TH 10:42 → II 15:27
PROVIDERS: ATTEND Internal Medicine
PROC: 30243S1 Transfusion of Nonautologous Globulin into Central Vein, Percutaneous Approach (ICD-10-PCS; principal; 2018-07-04)
DX: D80.1 Nonfamilial hypogammaglobulinemia (principal)
CPT/HCPCS: 96365; 96366; 96367; J1561 ×2; J1200; A9270; J1100; J3490

== ENCOUNTER 2018-08-15 11:15 | Inpatient (IN) | payer MEDICARE, OTHER ==
[2018-08-15] MEDS ORDERED: ONDANSETRON HCL INJ/PF 4 MG/2 ML SDV IV ONE (11:46)
--- NOTE | 2018-08-15 11:50 | ER Document Report ---
Addendum entered and electronically signed by ADELAIDA ROBLEDO PA-C 08/15/18 16:16: Critical Care Note - Critical Care Note Total time excluding time spent on procedures (mins): 37 - Repeated evaluations and consults Original Note: ED General - General Chief Complaint: High Blood Sugar Stated Complaint: BLOOD SUGAR ISSUES Time Seen by Provider: 08/15/18 11:21 Primary Care Provider: ALEXANDRE MARIA MD [EMERITUS] - Follow up as needed TRAVEL OUTSIDE OF THE [place] IN LAST 30 DAYS: No - HPI Notes: Patient is a 68-year-old female with immune deficiency, insulin-dependent diab etic, and hypertension who presents to the emergency department with family by EMS complaining of elevated blood glucose, body ache, and altered mental status that began this morning. Family states that she has been in DKA before and had a similar presentation. Family has noted weakness and increase in urination recently. She has not been eating as much lately. EMS had a blood glucose of 550. Family states that she is not acting as normally as she would and wants to sleep. Denies drug allergies. (By family): denies any fever, head injury, neck pain, URI, chest pain, syncope, cough, shortness of breath, wheeze, dyspnea, nausea/vomiting/diarrhea, urinary retention, dysuria, hematuria, loss of control of bowel or bladder, numbness/tingling, saddle anesthesia, muscle paralysis/weakness, or rash. - Related Data Allergies/Adverse Reactions: No Known Allergies Allergy (Verified 06/25/17 07:51) Past Medical History - Social History Smoking Status: Never Smoker Family History: Reviewed & Not Pertinent Patient has suicidal ideation: No Patient has homicidal ideation: No - Past Medical History Cardiac Medical History: Reports: Hx Hypertension Denies: Hx Congestive Heart Failure, Hx Heart Attack, Hx Heart Murmur Pulmonary Medical History: Reports: Hx Bronchitis, Hx COPD Denies: Hx Asthma, Hx Pneumonia, Hx Tuberculosis Neurological Medical History: Denies: Hx Cerebrovascular Accident, Hx Seizures Endocrine Medical History: Reports: Hx Diabetes Mellitus Type 1 Renal/ Medical History: Denies: Hx Peritoneal Dialysis GI Medical History: Denies: Hx Hepatitis, Hx Hiatal Hernia, Hx Ulcer Musculoskeletal Medical History: Reports Hx Arthritis Psychiatric Medical History: Denies: Hx Depression Infectious Medical History: Denies: Hx Hepatitis Past Surgical History: Reports: Hx Hysterectomy. Denies: Hx Mastectomy, Hx Open Heart Surgery, Hx Pacemaker - Immunizations Hx Diphtheria, Pertussis, Tetanus Vaccination: Yes Hx Pneumococcal Vaccination: 03/18/09 Review of Systems - Review of Systems -: Yes ROS unobtainable due to patient's medical condition - see HPI Physical Exam - Vital signs Vitals: Resp BP Pulse Ox 19 102/40 L 94 08/15/18 11:35 08/15/18 11:35 08/15/18 11:35 - Notes Notes: PHYSICAL EXAMINATION: GENERAL: appears weak, lethargic. Pt does not want to follow commands very well. She will open her eyes and slightly move her extremities when asked. She does not provide sentence answers, more moaning sounds and a shake/turn in her head. Neuro: GCS 13. Cranial nerves grossly intact. HEAD: Atraumatic, normocephalic. Non-tender. EYES: Pupils equal round and reactive to light, extraocular movements intact, sclera anicteric, conjunctiva are normal. No nystagmus. ENT: Nares patent and without discharge. oropharynx clear without exudates. No tonsilar hypertrophy or erythema. Moist mucous membranes. NECK: Normal range of motion, supple without lymphadenopathy. No rigidity/meningismus. No midline tenderness. LUNGS: Breath sounds clear to auscultation bilaterally and equal. No wheezes rales or rhonchi. HEART: Regular rate and rhythm without murmurs, rubs, gallops. ABDOMEN: Soft, nontender, nondistended abdomen. No guarding, no rebound. Normal bowel sounds present. No CVA tenderness bilaterally. Musculoskeletal: Ext's b/l: No bony tenderness of extremities. Extremities: No cyanosis, clubbing, or edema b/l. Peripheral pulses 2+. Capillary refill less than 2 seconds. PSYCH: flat SKIN: Warm, Dry, normal turgor, no rashes or lesions noted. Course - Re-evaluation Re-evalutation: 08/15/18 11:50 Pt's O2 on arrival was 79-80% RA and NC was placed at 2L. Her O2 improved to 92-93%. When I left, her O2 started dropping to the mid-80's on 2L. Pt was then placed at 4L and O2 improved back to the low 90's. Dr. Berry was consulted. Pt has a GCS currently of 14 and is able to protect her airway at this time. Her O2 dropped to the mid 70's when we were evaluating her again. We are switching to make sure it is not equipment error as she does not seem to be in any resp distress. narcan was ordered by Dr. Berry and 0.4mg was given. Pt did not have any noticeable behavioral or change in mental status. BP 89/54 and IV fluids were stat ordered and placed. 08/15/18 12:30 BP 106/46. Pt placed on nonrebreather, but still waiting for new O2. Pleth not appropriate on the monitor. Resp at bedside and setting up BIPAP. ABG drawn prior to starting. 08/15/18 13:07 Pt has an anion gap, low pH, low bicarb with K+ 4.3. We are still waiting for straight cath for urine. Pt is currently on BIPAP and at 100% with the new pulse oximeter positioning. We are going to turn off the bipap to see if it was mechanical error. We will start her back on RA and progress to NC if needed. Insulin drip protocol ordered. Insulin pumped will be turned off prior to start. 08/15/18 13:[address] Nunn, lead hospitalist, to call Dr. Duarte for admit. Called with no answer, will try again in a few if no response. 08/15/18 14:15 Dr. Duarte accepted pt for admit to ICU. - Vital Signs Vital signs: Temp Pulse Resp BP Pulse Ox 97.6 F 10 L 110/44 L 89 L 08/15/18 11:40 08/15/18 13:01 08/15/18 13:01 08/15/18 12:22 - Laboratory Result Diagrams: 08/15/18 12:11 08/15/18 12:11 Laboratory results interpreted by me: 08/15/18 08/15/18 08/15/18 12:11 12:11 12:11 WBC 12.1 H Hgb 11.7 L Hct 35.2 L Seg Neutrophils % 86.7 H Lymphocytes % 6.8 L Absolute Neutrophils 10.5 H ABG pH ABG pO2 ABG HCO3 ABG Total CO2 ABG O2 Saturation VBG pH VBG HCO3 Sodium 135.9 L Chloride 96 L Carbon Dioxide 18 L Anion Gap 22 H BUN 34 H Glucose 512 H* POC Glucose Lactic Acid 5.9 H Total Protein 6.0 L 08/15/18 08/15/18 08/15/18 12:11 13:03 13:19 WBC Hgb Hct Seg Neutrophils % Lymphocytes % Absolute Neutrophils ABG pH 7.21 L ABG pO2 240.9 H ABG HCO3 16.7 L ABG Total CO2 18.1 L ABG O2 Saturation 99.4 H VBG pH 7.24 L VBG HCO3 17.6 L Sodium Chloride Carbon Dioxide Anion Gap BUN Glucose POC Glucose 524 H* Lactic Acid Total Protein Discharge - Discharge Clinical Impression: DKA (diabetic ketoacidoses) Qualifiers: Diabetes mellitus type: type 1 Diabetes mellitus complication detail: without coma Qualified Code(s): E10.10 - Type 1 diabetes mellitus with ketoacidosis without coma Altered mental status Qualifiers: Altered mental status type: unspecified Qualified Code(s): R41.82 - Altered mental status, unspecified Condition: Stable Disposition: ADMITTED INPATIENT Admitting Provider: Hospitalist - Dr. Duarte Unit Admitted: ICU Referrals: ALEXANDRE MARIA MD [EMERITUS] - Follow up as needed
[2018-08-15] MEDS ORDERED: NALOXONE HCL INJ/PF 0.4 MG/1 ML SDV ONE (12:00)
[2018-08-15] MEDS ORDERED: NALOXONE HCL INJ/PF 0.4 MG/1 ML SDV IV ONE (12:03)
[2018-08-15] MEDS: NORMAL SALINE 1000 ML 1,000 ML IV PRN ×2 (12:23→15:38)
[2018-08-15 12:35] LABS: ABSOLUTE LYMPHOCYTES (AUTO) 0.8 10^3/uL (0.5-4.7); ABSOLUTE MONOCYTES (AUTO) 0.8 10^3/uL (0.1-1.4); ABSOLUTE NEUT (AUTO) 10.5 10^3/uL (1.7-8.2); BASOPHILS % (AUTO) 0.1 % (0-2); HEMATOCRIT 35.2 % (36.0-47.0); HEMOGLOBIN 11.7 g/dL (12.0-15.5); LYMPHOCYTES % (AUTO) 6.8 % (13-45); MEAN CORPUSCULAR HEMOGLOBIN 31.2 pg (27.0-33.4); MEAN CORPUSCULAR HGB CONC 33.3 g/dL (32.0-36.0); MEAN CORPUSCULAR VOLUME 94 fl (80-97); MONOCYTES % (AUTO) 6.4 % (3-13); PLATELET COUNT 177 10^3/uL (150-450); RED BLOOD COUNT 3.76 10^6/uL (3.72-5.28); RED CELL DISTRIBUTION WIDTH 13.8 % (11.5-14.0); SEGMENTED NEUTROPHILS % (AUTO) 86.7 % (42-78); TOTAL CELLS COUNTED % (AUTO) 100 %; WHITE BLOOD COUNT 12.1 10^3/uL (4.0-10.5)
[2018-08-15 12:50] LABS: VENOUS BLOOD HCO3 17.6 mmol/L (20-32); VENOUS BLOOD PCO2 41.7 mmHg (35-63); VENOUS BLOOD PH 7.24 (7.30-7.42)
[2018-08-15 12:51] LABS: VENOUS BLOOD BASE EXCESS -9.2 mmol/L
[2018-08-15 12:53] LABS: ALANINE AMINOTRANSFERASE 21 U/L (9-52); ALKALINE PHOSPHATASE 48 U/L (38-126); ASPARTATE AMINO TRANSFERASE 27 U/L (14-36); BILIRUBIN,DIRECT 0.4 mg/dL (0.0-0.4); BILIRUBIN,TOTAL 1.3 mg/dL (0.2-1.3); BLOOD UREA NITROGEN 34 mg/dL (7-20); CALCIUM 9.5 mg/dL (8.4-10.2); CARBON DIOXIDE 18 mmol/L (22-30); CHLORIDE 96 mmol/L (98-107); POTASSIUM 4.3 mmol/L (3.6-5.0); SODIUM 135.9 mmol/L (137-145)
[2018-08-15 13:01] LABS: GLUCOSE 512 mg/dL (75-110)
[2018-08-15 13:02] LABS: ANION GAP 22 (5-19)
[2018-08-15] MEDS ORDERED: NORMAL SALINE 100 ML with INSULIN REGULAR, HUMAN 100 UNIT IV PRN ×2 (13:06)
[2018-08-15] MEDS ORDERED: GLUCAGON,HUMAN RECOMB 1 MG INJ IM PRN (13:06)
[2018-08-15] MEDS ORDERED: DEXTROSE 40% GEL 15 GM TUBE PO PRN ×2 (13:06)
[2018-08-15] MEDS ORDERED: DEXTROSE 50%-WATER 25 GM/50 ML DISP.SYRIN IV PRN ×2 (13:06)
[2018-08-15 13:18] LABS: ARTERIAL BLOOD BASE EXCESS -10.7 mmol/L; ARTERIAL BLOOD FIO2 50%; ARTERIAL BLOOD H2CO3 1.29 mmol/L (1.05-1.35); ARTERIAL BLOOD HCO3 16.7 mmol/L (20-24); ARTERIAL BLOOD O2 SATURATION 99.4 % (94-98); ARTERIAL BLOOD PH 7.21 (7.35-7.45); ARTERIAL BLOOD PO2 240.9 mmHg (80-100); ARTERIAL BLOOD TOTAL CO2 18.1 mmol/L (21-25)
--- NOTE | 2018-08-15 13:38 | RADIOLOGY REPORT (SQ) ---
EXAM DESCRIPTION: CHEST SINGLE VIEW COMPLETED DATE/TIME: 08/15/2018 1:03 pm REASON FOR STUDY: AMS, hypoxia COMPARISON: 06/25/2017 EXAM PARAMETERS: NUMBER OF VIEWS: One view. TECHNIQUE: Single frontal radiographic view of the chest acquired. RADIATION DOSE: NA LIMITATIONS: None. FINDINGS: LUNGS AND PLEURA: No opacities, masses or pneumothorax. No pleural effusion. MEDIASTINUM AND HILAR STRUCTURES: No masses. Contour normal. HEART AND VASCULAR STRUCTURES: Moderate cardiomegaly, increased compared to 2017. No pulmonary edema . BONES: Lower cervical fusion hardware HARDWARE: Left-sided permanent central line tip superior vena cava. Left abdominal wall monitoring d evice OTHER: No other significant finding. IMPRESSION: Moderate cardiomegaly, increased in size compared to films from 2017. No acute infiltrates or pleural effusion TECHNICAL DOCUMENTATION: JOB ID: [id number] [employer]- All Rights Reserved Reading location - IP/workstation name: [email or web address]
[2018-08-15 14:36] LABS: APPEARANCE,URINE CLEAR; BILIRUBIN,URINE NEGATIVE (NEGATIVE); COLOR,URINE YELLOW; GLUCOSE, URINE >=500 mg/dL (NEGATIVE); KETONES,URINE 20 mg/dL (NEGATIVE); LEUKOCYTE ESTERASE,URINE NEGATIVE (NEGATIVE); NITRITE,URINE NEGATIVE (NEGATIVE); PROTEIN,URINE NEGATIVE (NEGATIVE); UROBILINOGEN,URINE NEGATIVE mg/dL (<2.0)
[2018-08-15] MEDS ORDERED: IPRATROPIUM/ALBUTEROL 0.5-2.5 MG/3 ML AMPUL NEB PRN (15:11)
[2018-08-15] MEDS ORDERED: ONDANSETRON HCL INJ/PF 4 MG/2 ML SDV IV PRN (15:11)
[2018-08-15] MEDS ORDERED: ACETAMINOPHEN 325 MG TABLET PO PRN (15:11)
--- NOTE | 2018-08-15 16:02 | PDOC H&P ---
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 Saez, diabetes type 1 for the last 45 years has an insulin pump for the last 5 years which was replaced a month ago sees an mechanical design technician at [facility], recurrent DKA, hypertension, was brought to ED by EMS after family noticed her to be very lethargic and altered. Family who is at the bedside but do not provide detailed history state that she was doing fine until yesterday but this morning woke up checked her blood sugar which was high, and was c/o of body aches, weakness, increased urinary frequency. As per family she was doing fine yesterday and denied any fever, chills, chest pain, fever, nausea, vomiting, diarrhea, con stipation. EMS had checked her blood sugar which was 550. In the ED she was found to be GCS of 14, hypoxic saturating 79-80% on room air, but later was found to be an error caused by the monitor. Initial VBG showed pH of 7.24, PCO2 41.7, bicarb 17.6, ABG showed pH of 7.21, PCO2 43, PO2 240, bicarb 16.7. CMP showed an anion gap of 22 with blood glucose level of 512. Lactic acid 5.9. Will start on insulin drip and hospital was consulted for admission. Past Medical History Cardiac Medical History: Reports: Hypertension Denies: Congestive Heart Failure, Myocardial Infarction, Heart Murmur Pulmonary Medical History: Reports: Bronchitis, Chronic Obstructive Pulmonary Disease (COPD) Denies: Asthma, Pneumonia, Tuberculosis Neurological Medical History: Denies: Seizures Endocrine Medical History: Reports: Diabetes Mellitus Type 1 GI Medical History: Denies: Hepatitis, Hiatal Hernia Musculoskeltal Medical History: Reports: Arthritis Psychiatric Medical History: Denies: Depression Hematology: Reports: Anemia - HX Denies: Hemophilia, Sickle Cell Disease Past Surgical History Past Surgical History: Reports: Hysterectomy Denies: Amputation, Mastectomy, Pacemaker Social History Smoking Status: Never Smoker Frequency of Alcohol Use: None Hx Recreational Drug Use: No Drugs: None Hx Prescription Drug Abuse: No Family History Family History: Reviewed & Not Pertinent Parental Family History Reviewed: Yes Children Family History Reviewed: Yes Sibling(s) Family History Reviewed.: Yes Medication/Allergy Home Medications: Ascorbic Acid [Vitamin C 500 mg Tablet] 500 mg PO DAILY 08/15/18 Aspirin [Ecotrin 81 mg EC Tablet] 81 mg PO DAILY 08/15/18 Cetirizine HCl [Zyrtec 10 mg Tablet] 10 mg PO DAILY 08/15/18 Cyclosporine 0.05% Oph Emulsio [Restasis 0.05% Oph Emulsion Pf 0.4 ml] 1 drop OU BID 08/15/18 Diphenoxylate HCl/Atrop Sulf [Lomotil 2.5 mg Tablet] 1 tab PO TIDP PRN 08/15/18 Docusate Sodium [Colace 100 mg Capsule] 100 mg PO DAILY 08/15/18 Furosemide [Lasix 40 mg Tablet] 40 mg PO DAILY 08/15/18 Insulin Aspart [Novolog Insulin (Aspart) 100 unit/mL] 0 units SQ .PUMP 08/15/18 Lactulose [Constulose 10 gm/15 mL Oral Solution] 30 ml PO DAILYP PRN 08/15/18 Losartan/Hydrochlorothiazide [Hyzaar 50-12.5 Tablet] 1 tab PO DAILY 08/15/18 Pnv No.95/Ferrous Fum/Folic AC [ Vitamin Tablet] 1 tab PO DAILY 08/15/18 Potassium Chloride [Klor-Con 10 Meq Capsule ER] 10 meq PO DAILY 08/15/18 Pravastatin Sodium [Pravachol] 40 mg PO QHS 08/15/18 Valacyclovir HCl [Valtrex 500 mg Tablet] 500 mg PO Q2D 08/15/18 Allergies/Adverse Reactions: No Known Allergies Allergy (Verified 06/25/17 07:51) Review of Systems ROS unobtainable: Due to mental status Physical Exam Vital Signs: Temp Pulse Resp BP Pulse Ox 97.6 F 20 102/42 L 99 08/15/18 11:40 08/15/18 15:01 08/15/18 15:00 08/15/18 15:01 Intake & Output 08/14/18 08/15/18 08/16/18 06:59 06:59 06:59 Intake Total 1000 Balance 1000 Weight 52.617 kg General appearance: PRESENT: mild distress Head exam: PRESENT: atraumatic, normocephalic Respiratory exam: PRESENT: clear to auscultation pretty. ABSENT: rales, rhonchi, wheezes Cardiovascular exam: PRESENT: RRR. ABSENT: diastolic murmur, rubs, systolic murmur GI/Abdominal exam: PRESENT: normal bowel sounds, soft. ABSENT: distended, guarding, mass, organolmegaly, rebound, tenderness Extremities exam: PRESENT: full ROM. ABSENT: calf tenderness, clubbing, pedal edema Neurological exam: PRESENT: altered, other - Arousable, follows minimal commands, moves all extremities. Results Laboratory Results: 08/15/18 12:11 08/15/18 12:11 08/15/18 08/15/18 08/15/18 12:11 12:11 12:11 WBC 12.1 H RBC 3.76 Hgb 11.7 L Hct 35.2 L MCV 94 MCH 31.2 MCHC 33.3 RDW 13.8 Plt Count 177 Seg Neutrophils % 86.7 H Lymphocytes % 6.8 L Monocytes % 6.4 Eosinophils % 0.0 Basophils % 0.1 Absolute Neutrophils 10.5 H Absolute Lymphocytes 0.8 Absolute Monocytes 0.8 Absolute Eosinophils 0.0 Absolute Basophils 0.0 Carbonic Acid HCO3/H2CO3 Ratio ABG pH ABG pCO2 ABG pO2 ABG HCO3 ABG O2 Saturation ABG Base Excess VBG pH VBG pCO2 VBG HCO3 VBG Base Excess FiO2 Sodium 135.9 L Potassium 4.3 Chloride 96 L Carbon Dioxide 18 L Anion Gap 22 H BUN 34 H Creatinine 0.93 Est GFR ( Amer) > 60 Est GFR (Non-Af Amer) > 60 Glucose 512 H* Lactic Acid 5.9 H Calcium 9.5 Total Bilirubin 1.3 AST 27 ALT 21 Alkaline Phosphatase 48 Total Protein 6.0 L Albumin 4.0 Urine Color Urine Appearance Urine pH Ur Specific Ashley Urine Protein Urine Glucose (UA) Urine Ketones Urine Blood Urine Nitrite Ur Leukocyte Esterase 08/15/18 08/15/18 08/15/18 12:11 13:03 14:12 WBC RBC Hgb Hct MCV MCH MCHC RDW Plt Count Seg Neutrophils % Lymphocytes % Monocytes % Eosinophils % Basophils % Absolute Neutrophils Absolute Lymphocytes Absolute Monocytes Absolute Eosinophils Absolute Basophils Carbonic Acid 1.29 HCO3/H2CO3 Ratio 12:1 ABG pH 7.21 L ABG pCO2 43.0 ABG pO2 240.9 H ABG HCO3 16.7 L ABG O2 Saturation 99.4 H ABG Base Excess -10.7 VBG pH 7.24 L VBG pCO2 41.7 VBG HCO3 17.6 L VBG Base Excess -9.2 FiO2 50% Sodium Potassium Chloride Carbon Dioxide Anion Gap BUN Creatinine Est GFR ( Amer) Est GFR (Non-Af Amer) Glucose Lactic Acid Calcium Total Bilirubin AST ALT Alkaline Phosphatase Total Protein Albumin Urine Color YELLOW Urine Appearance CLEAR Urine pH 5.0 Ur Specific Ashley 1.020 Urine Protein NEGATIVE Urine Glucose (UA) >=500 H Urine Ketones 20 H Urine Blood NEGATIVE Urine Nitrite NEGATIVE Ur Leukocyte Esterase NEGATIVE 08/15/18 12:11 Troponin I 0.039 Impressions: Chest X-Ray 08/15/18 11:40 IMPRESSION: Moderate cardiomegaly, increased in size compared to films from 2017. No acute infiltrates or pleural effusion Assessment & Plan - Diagnosis (1) Diabetic ketoacidosis Qualifiers: Diabetes mellitus type: type 1 Diabetes mellitus complication detail: without coma Qualified Code(s): E10.10 - Type 1 diabetes mellitus with ketoacidosis without coma Is this a current diagnosis for this admission?: Yes Plan: DKA protocol. Transfer to [facility]. Volume resuscitation. As per family she recently replaced her insulin pump she has had issues with. Likely not functioning properly. (2) Altered mental status Qualifiers: Altered mental status type: unspecified Qualified Code(s): R41.82 - Altered mental status, unspecified Is this a current diagnosis for this admission?: Yes Plan: Problem #1. We will get a head CT to rule out stroke. (3) Dehydration Is this a current diagnosis for this admission?: Yes Plan: Due to problem #1. Volume resuscitation. (4) Hypertension Qualifiers: Hypertension type: essential hypertension Qualified Code(s): I10 - Essential (primary) hypertension Is this a current diagnosis for this admission?: No Plan: Of hypertension. Will restart meds once patient is euvolemic. (5) Hypogammaglobulinemia Is this a current diagnosis for this admission?: No Plan: History of familial hypogammaglobulinemia as outpatient by Dr. Hollis. She is scheduled to receive her IVIG tomorrow here at [facility]. Pharmacy aware. (6) Diabetes type I Is this a current diagnosis for this admission?: No Plan: Patient has an insulin pump in place. Followed by mechanical design technician at [facility]. We will switch to subcutaneous insulin once DKA is treated. Patient to follow- up with endocrinology as outpatient for evaluation of her insulin pump. (7) Metabolic acidosis Is this a current diagnosis for this admission?: Yes Plan: Due to problem #1
--- NOTE | 2018-08-15 17:00 | RADIOLOGY REPORT (SQ) ---
EXAM DESCRIPTION: CT HEAD WITHOUT COMPLETED DATE/TIME: 08/15/2018 4:41 pm REASON FOR STUDY: AMS COMPARISON: None. TECHNIQUE: Axial images acquired through the brain without intravenous contrast. Images reviewed wi th bone, brain and subdural windows. Additional sagittal and coronal reconstructions were generated. Images stored on PACS. All CT scanners at this facility use dose modulation, iterative reconstruction, and/or weight based d osing when appropriate to reduce radiation dose to as low as reasonably achievable (ALARA). [facility]: Dose Right [facility]: CareDose [facility]: Dose Right [facility]: Teradose 4D [facility]: scroll kit RADIATION DOSE: CT Rad equipment meets quality standard of care and radiation dose reduction techniq ues were employed. CTDIvol: 53.2 mGy. DLP: 1124 mGy-cm.mGy. LIMITATIONS: None. FINDINGS: VENTRICLES: Prominent. CEREBRUM: No masses. No hemorrhage. No midline shift. Areas of low density in the white matter mos t likely due to chronic micro-vascular ischemic change. No evidence for acute infarction. CEREBELLUM: No masses. No hemorrhage. No alteration of density. No evidence for acute infarction. EXTRAAXIAL SPACES: Age-related involutional change. No fluid collections. No masses. ORBITS AND GLOBE: No intra- or extraconal masses. Normal contour of globe without masses. CALVARIUM: No fracture. PARANASAL SINUSES: No fluid or mucosal thickening. SOFT TISSUES: No mass or hematoma. OTHER: No other significant finding. IMPRESSION: CHRONIC CHANGES OF ATROPHY AND MICROVASCULAR ISCHEMIA. NO ACUTE PROCESS. EVIDENCE OF ACUTE STROKE: NO. TECHNICAL DOCUMENTATION: JOB ID: [id number] Quality ID # [id number]: Final reports with documentation of one or more dose reduction techniques (e.g., Au tomated exposure control, adjustment of the mA and/or kV according to patient size, use of iterative reconstruction technique) 2010 [employer]- All Rights Reserved Reading location - IP/workstation name: [email or web address]
[2018-08-15] MEDS ORDERED: INSULIN REG, HUMAN 100 UNIT/ML 3 ML VIAL (PYX) ONE (17:12)
[2018-08-15] MEDS: DEXTROSE 5%-WATER 1000 ML 1,000 ML with SODIUM BICARBONATE 100 MEQ IV PRN ×2 (17:35)
[2018-08-15] MEDS: POTASSI CL 20 MEQ/1/2NS 1L 20 MEQ/1,000 ML RTUINJ IV PRN (17:35)
[2018-08-15 18:51] LABS: ANION GAP 19 (5-19); BLOOD UREA NITROGEN 35 mg/dL (7-20); CALCIUM 9.3 mg/dL (8.4-10.2); CARBON DIOXIDE 17 mmol/L (22-30); CHLORIDE 101 mmol/L (98-107); POTASSIUM 4.6 mmol/L (3.6-5.0); SODIUM 137.3 mmol/L (137-145)
[2018-08-15 19:16] LABS: GLUCOSE 546 mg/dL (75-110)
[2018-08-15 20:53] LABS: URINE AMPHETAMINES SCREEN NEGATIVE; URINE BARBITURATES SCREEN NEGATIVE; URINE BENZODIAZEPINES SCREEN NEGATIVE; URINE COCAINE SCREEN NEGATIVE; URINE MARIJUANA (THC) SCREEN NEGATIVE; URINE METHADONE SCREEN NEGATIVE; URINE PHENCYCLIDINE SCREEN NEGATIVE
[2018-08-15] MEDS: INSULIN, REGULAR 100 UNIT/100 ML NORMAL SALINE IV PRN ×4 (22:33→23:07)
[2018-08-15] MEDS: HEPARIN SOD (PORCINE) 5,000 UNIT/ML 1 ML SYRINGE SUBCUT SCH (22:38)
[2018-08-15] MEDS: FAMOTIDINE INJ/PF 20 MG/2 ML SDV IV SCH (22:38)
[2018-08-15 22:45] LABS: ANION GAP 15 (5-19); BLOOD UREA NITROGEN 37 mg/dL (7-20); CALCIUM 9.2 mg/dL (8.4-10.2); CARBON DIOXIDE 20 mmol/L (22-30); CHLORIDE 102 mmol/L (98-107); SODIUM 137.4 mmol/L (137-145)
--- NOTE | 2018-08-15 22:55 | EKG REPORT ---
SEVERITY:- ABNORMAL ECG - SINUS RHYTHM PROBABLE LEFT ATRIAL ABNORMALITY NONSPECIFIC INTRAVENTRICULAR CONDUCTION DELAY LATERAL INFARCT, AGE INDETERMINATE : Confirmed by: Nkechi Miller 15-Aug-2018 22:54:21
[2018-08-15 23:09] LABS: GLUCOSE 467 mg/dL (75-110)
[2018-08-15 23:10] LABS: POTASSIUM 3.6 mmol/L (3.6-5.0)
[2018-08-16] MEDS: INSULIN, REGULAR 100 UNIT/100 ML NORMAL SALINE IV PRN ×14 (00:04→06:02)
[2018-08-16 02:27] LABS: ANION GAP 9 (5-19); BLOOD UREA NITROGEN 39 mg/dL (7-20); CARBON DIOXIDE 25 mmol/L (22-30); CHLORIDE 102 mmol/L (98-107); GLUCOSE 365 mg/dL (75-110); POTASSIUM 3.4 mmol/L (3.6-5.0); SODIUM 136.1 mmol/L (137-145)
[2018-08-16] MEDS ORDERED: SODIUM BICARBONATE 8.4% INJ 50 MEQ/50 ML DISP.SYRIN ONE (03:09)
[2018-08-16] MEDS: HEPARIN SOD (PORCINE) 5,000 UNIT/ML 1 ML SYRINGE SUBCUT SCH ×3 (05:03→21:06)
[2018-08-16] MEDS: DEXTROSE 5%-WATER 1000 ML 1,000 ML with SODIUM BICARBONATE 100 MEQ IV PRN ×2 (05:14)
[2018-08-16] MEDS: POTASSI CL 20 MEQ/1/2NS 1L 20 MEQ/1,000 ML RTUINJ IV PRN (05:14)
[2018-08-16 06:16] LABS: ARTERIAL BLOOD BASE EXCESS -0.1 mmol/L; ARTERIAL BLOOD H2CO3 1.43 mmol/L (1.05-1.35); ARTERIAL BLOOD HCO3 25.8 mmol/L (20-24); ARTERIAL BLOOD O2 SATURATION 98.8 % (94-98); ARTERIAL BLOOD PCO2 47.4 mmHg (35-45); ARTERIAL BLOOD PH 7.35 (7.35-7.45); ARTERIAL BLOOD PO2 147.9 mmHg (80-100); ARTERIAL BLOOD TOTAL CO2 27.3 mmol/L (21-25)
[2018-08-16 06:21] LABS: ARTERIAL BLOOD FIO2 36%
[2018-08-16 06:32] LABS: ANION GAP 8 (5-19); BLOOD UREA NITROGEN 39 mg/dL (7-20); CALCIUM 9.4 mg/dL (8.4-10.2); CARBON DIOXIDE 26 mmol/L (22-30); CHLORIDE 104 mmol/L (98-107); GLUCOSE 198 mg/dL (75-110); POTASSIUM 3.3 mmol/L (3.6-5.0); SODIUM 138.3 mmol/L (137-145)
[2018-08-16 06:50] LABS: FREE T3 1.51 pg/mL (2.77-5.27); FREE T4 (FREE THYROXINE) 0.96 ng/dL (0.78-2.19)
[2018-08-16] MEDS: FAMOTIDINE INJ/PF 20 MG/2 ML SDV IV SCH ×2 (09:20→21:16)
[2018-08-16] MEDS ORDERED: DEXTROSE 50%-WATER 25 GM/50 ML DISP.SYRIN IV PRN ×4 (10:16→10:19)
[2018-08-16] MEDS ORDERED: GLUCAGON,HUMAN RECOMB 1 MG INJ IM PRN ×2 (10:16→10:19)
[2018-08-16] MEDS ORDERED: DEXTROSE 40% GEL 15 GM TUBE PO PRN ×4 (10:16→10:19)
[2018-08-16] MEDS: INSULIN LISPRO 100 UNIT/ML 3 ML VIAL SUBCUT SCH ×3 (10:47→21:16)
[2018-08-16] MEDS ORDERED: CONTAINER EMPTY IV PRN (13:34)
[2018-08-16] MEDS ORDERED: IMMUNE GLOB GAM CAPRYLATE IV PRN (13:34)
[2018-08-16] MEDS ORDERED: DEXAMETHASONE SOD PHOSPHATE 10 MG in NORMAL SALINE 50 ML IV PRN (13:38)
[2018-08-16] MEDS ORDERED: DIPHENHYDRAMINE HCL 50 MG in NORMAL SALINE 50 ML IV PRN (13:39)
[2018-08-16] MEDS ORDERED: DEXTROSE 5%-WATER 250 ML IV PRN (13:41)
[2018-08-16] MEDS: INSULIN GLARGINE,HUM.REC.ANLOG 300 UNIT/3 ML INSULN.PEN SUBCUT SCH (14:09)
--- NOTE | 2018-08-16 17:16 | PDOC PROGRESS REPORT ---
Subjective Progress Note for:: 08/16/18 Subjective:: No acute events overnight. Patient alert oriented x3 complaining of generalized achiness stating feels like she has flu. Denies any fever, chest pain, shortness of breath, nausea, vomiting, diarrhea, constipation or any urinary symptoms. Reason For Visit: DKA Physical Exam Vital Signs: Temp Pulse Resp BP Pulse Ox 99.8 F 100 18 121/49 L 98 08/16/18 15:42 08/16/18 15:42 08/16/18 15:42 08/16/18 15:42 08/16/18 15:42 Intake & Output 08/15/18 08/16/18 08/17/18 06:59 06:59 06:59 Intake Total 3936 266 Output Total 0 Balance 3936 266 Weight 63.2 kg General appearance: PRESENT: no acute distress, well-developed, well-nourished Head exam: PRESENT: atraumatic, normocephalic Respiratory exam: PRESENT: clear to auscultation pretty. ABSENT: rales, rhonchi, wheezes Cardiovascular exam: PRESENT: RRR. ABSENT: diastolic murmur, rubs, systolic murmur GI/Abdominal exam: PRESENT: normal bowel sounds, soft. ABSENT: distended, guarding, mass, organolmegaly, rebound, tenderness Extremities exam: PRESENT: full ROM, tenderness - Generalized tenderness.. ABSENT: calf tenderness, clubbing, pedal edema Neurological exam: PRESENT: alert, awake, oriented to person, oriented to place, oriented to time, oriented to situation, CN II-XII grossly intact. ABSENT: motor sensory deficit Results Laboratory Results: 08/15/18 12:11 08/16/18 05:30 08/15/18 08/15/18 08/16/18 18:18 21:57 02:06 Carbonic Acid HCO3/H2CO3 Ratio ABG pH ABG pCO2 ABG pO2 ABG HCO3 ABG O2 Saturation ABG Base Excess FiO2 Sodium 137.3 137.4 136.1 L Potassium 4.6 3.6 D 3.4 L Chloride 101 102 102 Carbon Dioxide 17 L 20 L 25 Anion Gap 19 15 9 BUN 35 H 37 H 39 H Creatinine 0.98 0.96 0.89 Est GFR ( Amer) > 60 > 60 > 60 Est GFR (Non-Af Amer) 57 L 58 L > 60 Glucose 546 H* 467 H* 365 H Lactic Acid Calcium 9.3 9.2 9.0 TSH Free T4 Free T3 pg/mL 08/16/18 08/16/18 08/16/18 05:30 05:52 05:52 Carbonic Acid HCO3/H2CO3 Ratio ABG pH ABG pCO2 ABG pO2 ABG HCO3 ABG O2 Saturation ABG Base Excess FiO2 Sodium 138.3 Potassium 3.3 L Chloride 104 Carbon Dioxide 26 Anion Gap 8 BUN 39 H Creatinine 0.85 Est GFR ( Amer) > 60 Est GFR (Non-Af Amer) > 60 Glucose 198 H Lactic Acid Calcium 9.4 TSH 1.04 Free T4 0.96 Free T3 pg/mL 1.51 L 08/16/18 08/16/18 06:00 14:40 Carbonic Acid 1.43 H HCO3/H2CO3 Ratio 18:1 ABG pH 7.35 ABG pCO2 47.4 H ABG pO2 147.9 H ABG HCO3 25.8 H ABG O2 Saturation 98.8 H ABG Base Excess -0.1 FiO2 36% Sodium Potassium Chloride Carbon Dioxide Anion Gap BUN Creatinine Est GFR ( Amer) Est GFR (Non-Af Amer) Glucose Lactic Acid 1.2 Calcium TSH Free T4 Free T3 pg/mL 08/15/18 12:11 Troponin I 0.039 Impressions: Chest X-Ray 08/15/18 11:40 IMPRESSION: Moderate cardiomegaly, increased in size compared to films from 2017. No acute infiltrates or pleural effusion Head CT 08/15/18 16:05 IMPRESSION: CHRONIC CHANGES OF ATROPHY AND MICROVASCULAR ISCHEMIA. NO ACUTE PROCESS. EVIDENCE OF ACUTE STROKE: NO. Assessment & Plan - Diagnosis (1) Diabetes type I Is this a current diagnosis for this admission?: No Plan: Diabetic diet, long-acting insulin, pre-meal insulin, sliding scale. Patient has an insulin pump in place. Followed by cdl a driver at [facility] . We will switch to subcutaneous insulin once DKA is treated. Patient to follow- up with endocrinology as outpatient for evaluation of her insulin pump. (2) Altered mental status Qualifiers: Altered mental status type: unspecified Qualified Code(s): R41.82 - Altered mental status, unspecified Is this a current diagnosis for this admission?: Yes Plan: Due to the metabolic encephalopathy caused by underlying DKA. Resolved. (3) Dehydration Is this a current diagnosis for this admission?: Yes Plan: Euvolemic. Due to DKA. Monitor volume status (4) Diabetic ketoacidosis Qualifiers: Diabetes mellitus type: type 1 Diabetes mellitus complication detail: without coma Qualified Code(s): E10.10 - Type 1 diabetes mellitus with ketoacidosis without coma Is this a current diagnosis for this admission?: Yes Plan: Resolved. Anion gap 8 Was started DKA protocol. Transfered to [facility]. Volume resuscitation. As per family she recently replaced her insulin pump she has had issues with. Likely not functioning properly. (5) Hypertension Qualifiers: Hypertension type: essential hypertension Qualified Code(s): I10 - Essential (primary) hypertension Is this a current diagnosis for this admission?: No Plan: Normotensive. Restart home meds. Adjust meds as needed. Monitor vitals. (6) Hypogammaglobulinemia Is this a current diagnosis for this admission?: No Plan: Received IVIG infusion today at [facility]. History of familial hypogammaglobulinemia as outpatient by Dr. Hollis. She is scheduled to receive her IVIG tomorrow here at [facility]. Pharmacy aware. (7) Metabolic acidosis Is this a current diagnosis for this admission?: Yes Plan: Resolved. Repeat ABG within normal limits. Due to DKA.
[2018-08-17] MEDS: HEPARIN SOD (PORCINE) 5,000 UNIT/ML 1 ML SYRINGE SUBCUT SCH ×3 (05:02→21:08)
[2018-08-17 06:03] LABS: ABSOLUTE LYMPHOCYTES (AUTO) 0.7 10^3/uL (0.5-4.7); ABSOLUTE MONOCYTES (AUTO) 0.2 10^3/uL (0.1-1.4); HEMATOCRIT 36.9 % (36.0-47.0); HEMOGLOBIN 12.5 g/dL (12.0-15.5); LYMPHOCYTES % (AUTO) 6.8 % (13-45); MEAN CORPUSCULAR HEMOGLOBIN 30.9 pg (27.0-33.4); MEAN CORPUSCULAR HGB CONC 33.8 g/dL (32.0-36.0); MEAN CORPUSCULAR VOLUME 92 fl (80-97); MONOCYTES % (AUTO) 1.7 % (3-13); PLATELET COUNT 151 10^3/uL (150-450); RED BLOOD COUNT 4.04 10^6/uL (3.72-5.28); RED CELL DISTRIBUTION WIDTH 13.5 % (11.5-14.0); SEGMENTED NEUTROPHILS % (AUTO) 91.5 % (42-78); TOTAL CELLS COUNTED % (AUTO) 100 %; WHITE BLOOD COUNT 9.8 10^3/uL (4.0-10.5)
[2018-08-17 06:33] LABS: ALANINE AMINOTRANSFERASE 35 U/L (9-52); ALBUMIN 3.3 g/dL (3.5-5.0); ALKALINE PHOSPHATASE 47 U/L (38-126); ANION GAP 11 (5-19); ASPARTATE AMINO TRANSFERASE 70 U/L (14-36); BILIRUBIN,DIRECT 0.1 mg/dL (0.0-0.4); BILIRUBIN,TOTAL 0.6 mg/dL (0.2-1.3); BLOOD UREA NITROGEN 31 mg/dL (7-20); CALCIUM 9.3 mg/dL (8.4-10.2); CARBON DIOXIDE 24 mmol/L (22-30); CHLORIDE 103 mmol/L (98-107); GLUCOSE 299 mg/dL (75-110); POTASSIUM 4.1 mmol/L (3.6-5.0); SODIUM 137.6 mmol/L (137-145); TOTAL PROTEIN 6.1 g/dL (6.3-8.2)
[2018-08-17] MEDS: INSULIN LISPRO 100 UNIT/ML 3 ML VIAL SUBCUT SCH ×4 (08:10→21:09)
[2018-08-17] MEDS: INSULIN GLARGINE,HUM.REC.ANLOG 300 UNIT/3 ML INSULN.PEN SUBCUT SCH (09:21)
[2018-08-17] MEDS: FAMOTIDINE INJ/PF 20 MG/2 ML SDV IV SCH ×2 (09:22→21:13)
[2018-08-17] MEDS ORDERED: INSULIN GLARGINE,HUM.REC.ANLOG 300 UNIT/3 ML INSULN.PEN SUBCUT SCH (12:00)
[2018-08-17] MEDS ORDERED: GLUCAGON,HUMAN RECOMB 1 MG INJ IM PRN (18:24)
[2018-08-17] MEDS ORDERED: DEXTROSE 40% GEL 15 GM TUBE PO PRN ×2 (18:24)
[2018-08-17] MEDS ORDERED: DEXTROSE 50%-WATER 25 GM/50 ML DISP.SYRIN IV PRN ×2 (18:24)
--- NOTE | 2018-08-17 18:29 | PDOC PROGRESS REPORT ---
Subjective Progress Note for:: 08/17/18 Subjective:: No acute events overnight. Patient alert oriented x3 feeling much better than yesterday. Denies any fever, chest pain, shortness of breath, nausea, vomiting, diarrhea, constipation or any urinary symptoms. Reason For Visit: DKA Physical Exam Vital Signs: Temp Pulse Resp BP Pulse Ox 98.9 F 95 18 153/83 H 100 08/17/18 15:59 08/17/18 15:59 08/17/18 15:59 08/17/18 15:59 08/17/18 15:59 Intake & Output 08/16/18 08/17/18 08/18/18 06:59 06:59 06:59 Intake Total 3936 1836 236 Output Total 0 Balance 3936 1836 236 Weight 63.2 kg 64.1 kg General appearance: PRESENT: no acute distress, well-developed, well-nourished Head exam: PRESENT: atraumatic, normocephalic Respiratory exam: PRESENT: clear to auscultation pretty. ABSENT: rales, rhonchi, wheezes Cardiovascular exam: PRESENT: RRR. ABSENT: diastolic murmur, rubs, systolic murmur Extremities exam: PRESENT: full ROM. ABSENT: calf tenderness, clubbing, pedal edema Neurological exam: PRESENT: alert, awake, oriented to person, oriented to place, oriented to time, oriented to situation, CN II-XII grossly intact. ABSENT: motor sensory deficit Results Laboratory Results: 08/17/18 05:35 08/17/18 05:35 08/17/18 08/17/18 05:35 05:35 WBC 9.8 RBC 4.04 Hgb 12.5 Hct 36.9 MCV 92 MCH 30.9 MCHC 33.8 RDW 13.5 Plt Count 151 Seg Neutrophils % 91.5 H Lymphocytes % 6.8 L Monocytes % 1.7 L Eosinophils % 0.0 Basophils % 0.0 Absolute Neutrophils 9.0 H Absolute Lymphocytes 0.7 Absolute Monocytes 0.2 Absolute Eosinophils 0.0 Absolute Basophils 0.0 Sodium 137.6 Potassium 4.1 Chloride 103 Carbon Dioxide 24 Anion Gap 11 BUN 31 H Creatinine 0.68 Est GFR ( Amer) > 60 Est GFR (Non-Af Amer) > 60 Glucose 299 H Calcium 9.3 Magnesium 2.2 Total Bilirubin 0.6 AST 70 H ALT 35 Alkaline Phosphatase 47 Total Protein 6.1 L Albumin 3.3 L 08/15/18 14:12 Catheterized Urine Urine Culture - Final NO GROWTH 2 DAYS 08/15/18 12:11 Troponin I 0.039 Impressions: Chest X-Ray 08/15/18 11:40 IMPRESSION: Moderate cardiomegaly, increased in size compared to films from 2017. No acute infiltrates or pleural effusion Head CT 08/15/18 16:05 IMPRESSION: CHRONIC CHANGES OF ATROPHY AND MICROVASCULAR ISCHEMIA. NO ACUTE PROCESS. EVIDENCE OF ACUTE STROKE: NO. Assessment & Plan - Diagnosis (1) Diabetes type I Is this a current diagnosis for this admission?: No Plan: Diabetic diet, long-acting insulin, pre-meal insulin, sliding scale. Patient has an insulin pump in place. Followed by heat treater at [facility]. We will switch to subcutaneous insulin once DKA is treated. Patient to follow- up with endocrinology as outpatient for evaluation of her insulin pump. (2) Hypertension Qualifiers: Hypertension type: essential hypertension Qualified Code(s): I10 - Essential (primary) hypertension Is this a current diagnosis for this admission?: No Plan: Normotensive. Restart home meds. Adjust meds as needed. Monitor vitals. (3) Hypogammaglobulinemia Is this a current diagnosis for this admission?: No Plan: Received IVIG infusion today at [facility]. History of familial hypogammaglobulinemia as outpatient by Dr. Hollis. She is scheduled to receive her IVIG tomorrow here at [facility]. Pharmacy aware. (4) Metabolic acidosis Is this a current diagnosis for this admission?: Yes Plan: Resolved. Repeat ABG within normal limits. Due to DKA. (5) Altered mental status Qualifiers: Altered mental status type: unspecified Qualified Code(s): R41.82 - Altered mental status, unspecified Is this a current diagnosis for this admission?: Yes Plan: Resolved. Due to the metabolic encephalopathy caused by underlying DKA. (6) Dehydration Is this a current diagnosis for this admission?: Yes Plan: Euvolemic. Due to DKA. Monitor volume status (7) Diabetic ketoacidosis Qualifiers: Diabetes mellitus type: type 1 Diabetes mellitus complication detail: without coma Qualified Code(s): E10.10 - Type 1 diabetes mellitus with ketoacidosis without coma Is this a current diagnosis for this admission?: Yes Plan: Resolved. Anion gap 8 Was started DKA protocol. Transfered to [facility]. Volume resuscitation. As per family she recently replaced her insulin pump she has had issues with. Likely not functioning properly.
[2018-08-17] MEDS ORDERED: HYDRALAZINE HCL INJ/PF 20 MG/1 ML SDV IV PRN (18:30)
[2018-08-18] MEDS: HEPARIN SOD (PORCINE) 5,000 UNIT/ML 1 ML SYRINGE SUBCUT SCH ×3 (05:57→21:09)
[2018-08-18 07:14] LABS: ABSOLUTE LYMPHOCYTES (AUTO) 1.4 10^3/uL (0.5-4.7); ABSOLUTE MONOCYTES (AUTO) 0.3 10^3/uL (0.1-1.4); ABSOLUTE NEUT (AUTO) 4.9 10^3/uL (1.7-8.2); BASOPHILS % (AUTO) 0.1 % (0-2); EOSINOPHILS % (AUTO) 0.1 % (0-6); HEMATOCRIT 36.8 % (36.0-47.0); HEMOGLOBIN 12.5 g/dL (12.0-15.5); LYMPHOCYTES % (AUTO) 21.1 % (13-45); MEAN CORPUSCULAR HEMOGLOBIN 30.7 pg (27.0-33.4); MEAN CORPUSCULAR HGB CONC 33.9 g/dL (32.0-36.0); MEAN CORPUSCULAR VOLUME 91 fl (80-97); MONOCYTES % (AUTO) 4.5 % (3-13); PLATELET COUNT 122 10^3/uL (150-450); RED BLOOD COUNT 4.06 10^6/uL (3.72-5.28); RED CELL DISTRIBUTION WIDTH 13.5 % (11.5-14.0); SEGMENTED NEUTROPHILS % (AUTO) 74.2 % (42-78); TOTAL CELLS COUNTED % (AUTO) 100 %; WHITE BLOOD COUNT 6.6 10^3/uL (4.0-10.5)
[2018-08-18 07:43] LABS: ALANINE AMINOTRANSFERASE 39 U/L (9-52); ALBUMIN 2.9 g/dL (3.5-5.0); ALKALINE PHOSPHATASE 41 U/L (38-126); ANION GAP 5 (5-19); ASPARTATE AMINO TRANSFERASE 59 U/L (14-36); BILIRUBIN,DIRECT 0.1 mg/dL (0.0-0.4); BILIRUBIN,TOTAL 0.8 mg/dL (0.2-1.3); BLOOD UREA NITROGEN 23 mg/dL (7-20); CALCIUM 9.2 mg/dL (8.4-10.2); CARBON DIOXIDE 31 mmol/L (22-30); CHLORIDE 105 mmol/L (98-107); POTASSIUM 3.3 mmol/L (3.6-5.0); TOTAL PROTEIN 5.8 g/dL (6.3-8.2)
[2018-08-18 07:48] LABS: GLUCOSE 51 mg/dL (75-110)
[2018-08-18] MEDS: INSULIN LISPRO 100 UNIT/ML 3 ML VIAL SUBCUT SCH ×6 (07:50→21:10)
[2018-08-18] MEDS ORDERED: INSULIN LISPRO 100 UNIT/ML 3 ML VIAL SUBCUT SCH (08:00)
[2018-08-18] MEDS ORDERED: INSULIN GLARGINE,HUM.REC.ANLOG 300 UNIT/3 ML INSULN.PEN SUBCUT SCH ×2 (10:00)
[2018-08-18] MEDS: LISINOPRIL 5 MG TABLET PO SCH (10:47)
[2018-08-18] MEDS: FAMOTIDINE INJ/PF 20 MG/2 ML SDV IV SCH ×2 (10:48→21:11)
[2018-08-18] MEDS: FUROSEMIDE 40 MG TABLET PO SCH (10:48)
--- NOTE | 2018-08-18 11:58 | PDOC PROGRESS REPORT ---
Subjective Progress Note for:: 08/18/18 Subjective:: No acute events overnight. At 6:30 AM patient was found to have a blood glucose level of 51 asymptomatic. Was started on Lantus overnight but is stating that she does not react to Lantus very well and she only uses sliding insulin to manage her diabetes. Her generalized pain has improved she is denying any fever, chills, nausea, vomiting, diarrhea, constipation or any urinary symptoms. Reason For Visit: DKA Physical Exam Vital Signs: Temp Pulse Resp BP Pulse Ox 98.1 F 87 18 150/71 H 98 08/18/18 04:23 08/18/18 07:00 08/18/18 04:23 08/18/18 04:23 08/18/18 04:23 Intake & Output 08/17/18 08/18/18 08/19/18 06:59 06:59 06:59 Intake Total 1836 572 Balance 1836 572 Weight 64.1 kg 70.7 kg General appearance: PRESENT: no acute distress, well-developed, well-nourished Respiratory exam: PRESENT: clear to auscultation pretty. ABSENT: rales, rhonchi, wheezes Cardiovascular exam: PRESENT: RRR. ABSENT: diastolic murmur, rubs, systolic murmur GI/Abdominal exam: PRESENT: normal bowel sounds, soft. ABSENT: distended, guarding, mass, organolmegaly, rebound, tenderness Extremities exam: PRESENT: full ROM. ABSENT: calf tenderness, clubbing, pedal edema Neurological exam: PRESENT: alert, awake, oriented to person, oriented to place, oriented to time, oriented to situation, CN II-XII grossly intact. ABSENT: motor sensory deficit Psychiatric exam: PRESENT: appropriate affect, normal mood. ABSENT: homicidal ideation, suicidal ideation Results Laboratory Results: 08/18/18 06:29 08/18/18 06:29 08/18/18 08/18/18 06:29 06:29 WBC 6.6 RBC 4.06 Hgb 12.5 Hct 36.8 MCV 91 MCH 30.7 MCHC 33.9 RDW 13.5 Plt Count 122 L Seg Neutrophils % 74.2 Lymphocytes % 21.1 Monocytes % 4.5 Eosinophils % 0.1 Basophils % 0.1 Absolute Neutrophils 4.9 Absolute Lymphocytes 1.4 Absolute Monocytes 0.3 Absolute Eosinophils 0.0 Absolute Basophils 0.0 Sodium 141.0 Potassium 3.3 L Chloride 105 Carbon Dioxide 31 H Anion Gap 5 BUN 23 H Creatinine 0.60 Est GFR ( Amer) > 60 Est GFR (Non-Af Amer) > 60 Glucose 51 L Calcium 9.2 Magnesium 2.2 Total Bilirubin 0.8 AST 59 H ALT 39 Alkaline Phosphatase 41 Total Protein 5.8 L Albumin 2.9 L 08/15/18 14:12 Catheterized Urine Urine Culture - Final NO GROWTH 2 DAYS 08/15/18 12:11 Troponin I 0.039 Impressions: Chest X-Ray 08/15/18 11:40 IMPRESSION: Moderate cardiomegaly, increased in size compared to films from 2017. No acute infiltrates or pleural effusion Head CT 08/15/18 16:05 IMPRESSION: CHRONIC CHANGES OF ATROPHY AND MICROVASCULAR ISCHEMIA. NO ACUTE PROCESS. EVIDENCE OF ACUTE STROKE: NO. Assessment & Plan - Diagnosis (1) Diabetes type I Is this a current diagnosis for this admission?: No Plan: Patient had one episode of asymptomatic hypoglycemia fasting blood glucose 51. Was started on Lantus last night. Conversation with patient today she stating that she does not react very well to Lantus and she has been managing her diabetes with sliding scale insulin when not on the pump. States that she has been living with diabetes for 45 years and she is well treated on how to treat her diabetes and adjust her insulin dosage. Several attempts were made to contact her coffee sommelier at [place] to find out what could be done about insulin pump that was placed about a month ago but no success. Will DC Lantus, pre-meal. Continue on sliding scale insulin and diabetic diet Will attempt to make a follow-up appointment with her coffee sommelier if possible not will be discharged home to follow-up with her coffee sommelier. She was advised not to use her insulin pump until she has been evaluated by her coffee sommelier because it may not be functioning properly as she was in DKA while being on the pump and no other causes were found for her DKA. Pump was replaced a month ago. She voices understanding. (2) Hypertension Qualifiers: Hypertension type: essential hypertension Qualified Code(s): I10 - Essential (primary) hypertension Is this a current diagnosis for this admission?: No Plan: Normotensive. Start on low-dose lisinopril. To be up titrated as tolerated. Follow-up with PCP. (3) Hypogammaglobulinemia Is this a current diagnosis for this admission?: No Plan: Received IVIG infusion today at [facility]. History of familial hypogammaglobulinemia as outpatient by Dr. Hollis. She is scheduled to receive her IVIG tomorrow here at [facility]. Pharmacy aware. (4) Metabolic acidosis Is this a current diagnosis for this admission?: Yes Plan: Resolved. Repeat ABG within normal limits. Due to DKA. (5) Altered mental status Qualifiers: Altered mental status type: unspecified Qualified Code(s): R41.82 - Altered mental status, unspecified Is this a current diagnosis for this admission?: Yes Plan: Resolved. Due to the metabolic encephalopathy caused by underlying DKA. (6) Dehydration Is this a current diagnosis for this admission?: Yes Plan: Euvolemic. Due to DKA. Monitor volume status (7) Diabetic ketoacidosis Qualifiers: Diabetes mellitus type: type 1 Diabetes mellitus complication detail: with out coma Qualified Code(s): E10.10 - Type 1 diabetes mellitus with ketoac idosis without coma Is this a current diagnosis for this admission?: Yes Plan: Resolved. Anion gap 8 Was started DKA protocol. Transfered to [facility]. Volume resuscitation. As per family she recently replaced her insulin pump she has had issues with. Likely not functioning properly.
[2018-08-18] MEDS ORDERED: HEPARIN SOD (PORCINE) 5,000 UNIT/ML 1 ML SYRINGE SUBCUT ONE (22:30)
[2018-08-19] MEDS: HEPARIN SOD (PORCINE) 5,000 UNIT/ML 1 ML SYRINGE SUBCUT SCH ×2 (06:02→14:14)
[2018-08-19] MEDS: INSULIN LISPRO 100 UNIT/ML 3 ML VIAL SUBCUT SCH ×2 (08:03→12:07)
[2018-08-19] MEDS: FUROSEMIDE 40 MG TABLET PO SCH (10:19)
[2018-08-19] MEDS: LISINOPRIL 5 MG TABLET PO SCH (10:19)
[2018-08-19] MEDS: FAMOTIDINE INJ/PF 20 MG/2 ML SDV IV SCH (10:20)
[2018-08-19] MEDS ORDERED: (PENDING PHARMACY ID) (Losartan/Hydrochlorothiazide [Hyzaar 50-12.5 Tablet] 1 TAB) PO SCH (10:30)
[2018-08-19] MEDS ORDERED: HYDROCHLOROTHIAZIDE 12.5 MG TABLET PO SCH (12:30)
[2018-08-19 13:31] VITALS: BP 145/86
[2018-08-20] MEDS ORDERED: LISINOPRIL 5 MG TABLET PO SCH (10:00)
[2018-08-20] MEDS ORDERED: LOSARTAN POTASSIUM 50 MG TABLET PO SCH (10:00)
--- NOTE | 2018-08-21 17:57 | PDOC DISCHARGE SUMMARY ---
General - Admit/Disc Date/PCP Admission Date/Primary Care Provider: 08/15/18 14:34 DERICK SANTANA MD Discharge Date: 08/19/18 - Discharge Diagnosis (1) Diabetic ketoacidosis Is this a current diagnosis for this admission?: Yes (2) Diabetes type I Is this a current diagnosis for this admission?: No (3) Hypertension Is this a current diagnosis for this admission?: No (4) Hypogammaglobulinemia Is this a current diagnosis for this admission?: No (5) Metabolic acidosis Is this a current diagnosis for this admission?: Yes (6) Altered mental status Is this a current diagnosis for this admission?: Yes (7) Dehydration Is this a current diagnosis for this admission?: Yes - Additional Information Resuscitation Status: Full Code Discharge Diet: As Tolerated Discharge Activity: Activity As Tolerated Prescriptions: Metoclopramide HCl [Reglan] 10 mg PO Q6 PRN 4 Days #16 tablet PRN Reason: Home Medications: Ascorbic Acid [Vitamin C 500 mg Tablet] 500 mg PO DAILY 08/15/18 Aspirin [Ecotrin 81 mg EC Tablet] 81 mg PO DAILY 08/15/18 Cetirizine HCl [Zyrtec 10 mg Tablet] 10 mg PO DAILY 08/15/18 Cyclosporine 0.05% Oph Emulsio [Restasis 0.05% Oph Emulsion Pf 0.4 ml] 1 drop OU BID 08/15/18 Diphenoxylate HCl/Atrop Sulf [Lomotil 2.5 mg Tablet] 1 tab PO TIDP PRN 08/15/18 Docusate Sodium [Colace 100 mg Capsule] 100 mg PO DAILY 08/15/18 Furosemide [Lasix 40 mg Tablet] 40 mg PO DAILY 08/15/18 Insulin Aspart [Novolog Insulin (Aspart) 100 unit/mL] 0 units SQ .PUMP 08/15/18 Lactulose [Constulose 10 gm/15 mL Oral Solution] 30 ml PO DAILYP PRN 08/15/18 Losartan/Hydrochlorothiazide [Hyzaar 50-12.5 Tablet] 1 tab PO DAILY 08/15/18 Pnv No.95/Ferrous Fum/Folic AC [ Vitamin Tablet] 1 tab PO DAILY 08/15/18 Potassium Chloride [Klor-Con 10 Meq Capsule ER] 10 meq PO DAILY 08/15/18 Pravastatin Sodium [Pravachol] 40 mg PO QHS 08/15/18 Valacyclovir HCl [Valtrex 500 mg Tablet] 500 mg PO Q2D 08/15/18 Metoclopramide HCl [Reglan] 10 mg PO Q6 PRN 4 Days #16 tablet 08/19/18 History of Present Illness History of Present Illness: JOCELYN ALVAREZ is a 68 year old female past medical history of familial hypo-gamma globin anemia on monthly IVIG infusion followed by Dr. Saez, diabetes type 1 for the last 45 years has an insulin pump for the last 5 years which was replaced a month ago sees an safety supervisor at [facility], recurrent DKA, hypertension, was brought to ED by EMS after family noticed her to be very lethargic and altered. Family who is at the bedside but do not provide detailed history state that she was doing fine until yesterday but this morning woke up checked her blood sugar which was high, and was c/o of body aches, weakness, increased urinary frequency. As per family she was doing fine yesterday and denied any fever, chills, chest pain, fever, nausea, vomiting, diarrhea, constipation. EMS had checked her blood sugar which was 550. In the ED she was found to be GCS of 14, hypoxic saturating 79-80% on room air, but later was found to be an error caused by the monitor. Initial VBG showed pH of 7.24, PCO2 41.7, bicarb 17.6, ABG showed pH of 7.21, PCO2 43, PO2 240, bicarb 16.7. CMP showed an anion gap of 22 with blood glucose level of 512. Lactic acid 5.9. Will start on insulin drip and hospital was consulted for admission. Hospital Course Hospital Course: (1) Diabetic ketoacidosis Resolved. Anion gap 8 Was started DKA protocol. Transfered to [facility]. Volume resuscitation. As per family she recently replaced her insulin pump she has had issues with. Patient stated that it was replaced several months ago and she is sure that is properly functioning. (2) Diabetes type I Patient had one episode of asymptomatic hypoglycemia fasting blood glucose 51 first night of admission or being started on Lantus. I had conversation with patient the following day she is stating that she does not react very well to Lantus and she has been managing her diabetes with sliding scale insulin when not on the pump. States that she has been living with diabetes for 45 years and she is well treated on how to treat her diabetes and adjust her insulin dosage. Several attempts were made to contact her safety supervisor at [facility] to find out what could be done about insulin pump that was placed about a month ago but no success. Was DC'd on sliding a scale insulin as patient became hypoglycemic on Lantus. Patient stated that she has been managing her diabetes with sliding scale because she does not react very well on Lantus. Neurologist in the past and she is not sure why she does not react very well to Lantus. Ideally would have kept the patient until after hold off her safety supervisor unfortunately not able to get hold of him after trying several times and leaving voice messages. She was insisting on leaving and ensured me she is very well dated about to manage her diabetes because she has been dealing with for the last 45 years. Kept insisting that she is sure that her insulin pump is working properly and reassured me still up with her safety supervisor to see if her insulin pump was not working properly. She was advised not to use her insulin pump until she has been evaluated by her safety supervisor because it may not be functioning properly as she was in DKA while being on the pump and no other causes were found for her DKA. Pump was replaced a month ago. She voices understanding. (3) Hypertension Patient not very compliant with her meds. Sometimes she refuses her furosemide. Home meds restarted. (4) Hypogammaglobulinemia Received IVIG infusion at [facility] on this admission. History of familial hypogammaglobulinemia as outpatient by Dr. Hollis. She is scheduled to receive her IVIG tomorrow here at [facility]. Pharmacy aware. (5) Metabolic acidosis Resolved. Repeat ABG within normal limits. Due to DKA. (6) Altered mental status Resolved. Due to the metabolic encephalopathy caused by underlying DKA. (7) Dehydration Euvolemic. Due to DKA. Monitor volume status Physical Exam Vital Signs: Temp Pulse Resp BP Pulse Ox 99.0 F 95 16 145/86 H 100 08/19/18 15:14 08/19/18 15:14 08/19/18 15:14 08/19/18 15:14 08/19/18 15:14 Intake & Output 08/18/18 08/19/18 08/20/18 06:59 06:59 06:59 Intake Total 572 1016 Balance 572 1016 Weight 70.7 kg 58.7 kg General appearance: PRESENT: no acute distress, well-developed, well-nourished Head exam: PRESENT: atraumatic, normocephalic Respiratory exam: PRESENT: clear to auscultation pretty. ABSENT: rales, rhonchi, wheezes Cardiovascular exam: PRESENT: RRR. ABSENT: diastolic murmur, rubs, systolic murmur GI/Abdominal exam: PRESENT: normal bowel sounds, soft. ABSENT: distended, guarding, mass, organolmegaly, rebound, tenderness Extremities exam: PRESENT: full ROM. ABSENT: calf tenderness, clubbing, pedal edema Neurological exam: PRESENT: alert, awake, oriented to person, oriented to place, oriented to time, oriented to situation, CN II-XII grossly intact. ABSENT: motor sensory deficit Psychiatric exam: PRESENT: appropriate affect, normal mood. ABSENT: homicidal ideation, suicidal ideation Results Laboratory Results: 08/18/18 06:29 08/18/18 06:29 08/15/18 12:11 Troponin I 0.039 Impressions: Chest X-Ray 08/15/18 11:40 IMPRESSION: Moderate cardiomegaly, increased in size compared to films from 2017. No acute infiltrates or pleural effusion Head CT 08/15/18 16:05 IMPRESSION: CHRONIC CHANGES OF ATROPHY AND MICROVASCULAR ISCHEMIA. NO ACUTE PROCESS. EVIDENCE OF ACUTE STROKE: NO. Qualifiers - * PATIENT BEING DISCHARGED WITH ANY OF THE FOLLOWING DIAGNOSIS: No
== END 2018-08-19 15:52 | disposition home or self-care (01) | DRG 638 ==
LOC: ER 11:15 → EH 14:34 → 3S 20:28
PROVIDERS: ADMIT Hospitalist; ATTEND Hospitalist
DX: E10.10 Type 1 diabetes mellitus with ketoacidosis without coma (principal); D80.1 Nonfamilial hypogammaglobulinemia; I10 Essential (primary) hypertension; E86.0 Dehydration; Z79.4 Long term (current) use of insulin; Z79.82 Long term (current) use of aspirin; Z79.899 Other long term (current) drug therapy
CPT/HCPCS: 36415; 36600; 70450; 71045; 80048; 80053; 80307; 81001; 82803; 82962; 83605; 83735; 84439; 84443; 84481; 84484; 85025; 87040; 87086; 93005; 93010; 94660; 96361; 96367; 96374; 99291; J0360; J1100; J1200; J1561; J1642; J1644; J1815; J2310; J2405; J3480; J3490; J7030; J7060; S0028

== ENCOUNTER 2018-09-21 11:18 | Inpatient (IN) | payer MEDICARE, OTHER ==
[2018-09-21] MEDS ORDERED: NORMAL SALINE 1000 ML 1,000 ML IV ONE ×4 (14:41→22:23)
--- NOTE | 2018-09-21 14:43 | ER Document Report ---
ED Medical Screen (RME) - General Chief Complaint: High Blood Sugar Stated Complaint: SICK Time Seen by Provider: 09/21/18 14:35 TRAVEL OUTSIDE OF THE [place] IN LAST 30 DAYS: No - HPI Notes: 09/21/18 14:42 Patient is a 68-year-old female that presents to the emergency department for chief complaint of hyperglycemia. Patient began treatment for urinary tract infection from Dr. Solorzano on Monday. She has been taking Cipro. She did not take her dose today because of nausea. She reports poor appetite, weight loss, nausea and vomiting. She has had DKA in the past. She is an insulin-dependent diabetic. ROS: GENERAL: Denies fever of chills CV: Denies chest pain PHYSICAL EXAMINATION: GENERAL: Well-appearing, well-nourished and in no acute distress. HEAD: Atraumatic, normocephalic. EYES: Pupils equal round extraocular movements intact, conjunctiva are normal. ENT: Nares patent NECK: Normal range of motion LUNGS: No respiratory distress Musculoskeletal: Normal range of motion NEUROLOGICAL: Normal speech, normal gait. PSYCH: Normal mood, normal affect. MDM: Patient seen and examined for rapid initial assessment. Vital signs reviewed. A comprehensive ED assessment and evaluation of the patient, analysis of test results and completion of the medical decision making process will be conducted by additional ED providers. - Related Data Allergies/Adverse Reactions: No Known Allergies Allergy (Verified 06/25/17 07:51) Past Medical History - Past Medical History Cardiac Medical History: Reports: Hx Hypertension Denies: Hx Congestive Heart Failure, Hx Heart Attack, Hx Heart Murmur Pulmonary Medical History: Reports: Hx Bronchitis, Hx COPD Denies: Hx Asthma, Hx Pneumonia, Hx Tuberculosis Neurological Medical History: Denies: Hx Cerebrovascular Accident, Hx Seizures Endocrine Medical History: Reports: Hx Diabetes Mellitus Type 1 Renal/ Medical History: Denies: Hx Peritoneal Dialysis GI Medical History: Denies: Hx Hepatitis, Hx Hiatal Hernia, Hx Ulcer Musculoskeltal Medical History: Reports Hx Arthritis Psychiatric Medical History: Denies: Hx Depression Infectious Medical History: Denies: Hx Hepatitis Past Surgical History: Reports: Hx Hysterectomy. Denies: Hx Mastectomy, Hx Open Heart Surgery, Hx Pacemaker - Immunizations Hx Diphtheria, Pertussis, Tetanus Vaccination: Yes History of Influenza Vaccine for 04/2017 - 09/2017 Season: Yes Influenza Administration Date for 04/2017 - 09/2017 Season: 04/09/17 Physical Exam - Vital signs Vitals: Temp Pulse Resp BP Pulse Ox 98.4 F 94 16 128/41 H 95 09/21/18 11:47 09/21/18 11:47 09/21/18 11:47 09/21/18 11:47 09/21/18 11:47 Course - Vital Signs Vital signs: Temp Pulse Resp BP Pulse Ox 98.4 F 94 16 128/41 H 95 09/21/18 11:47 09/21/18 11:47 09/21/18 11:47 09/21/18 11:47 09/21/18 11:47
[2018-09-21 15:21] LABS: ABSOLUTE MONOCYTES (AUTO) 0.4 10^3/uL (0.1-1.4); ABSOLUTE NEUT (AUTO) 6.5 10^3/uL (1.7-8.2); BASOPHILS % (AUTO) 0.2 % (0-2); HEMATOCRIT 37.4 % (36.0-47.0); HEMOGLOBIN 12.4 g/dL (12.0-15.5); MEAN CORPUSCULAR HEMOGLOBIN 31.3 pg (27.0-33.4); MEAN CORPUSCULAR HGB CONC 33.3 g/dL (32.0-36.0); MEAN CORPUSCULAR VOLUME 94 fl (80-97); MONOCYTES % (AUTO) 5.5 % (3-13); PLATELET COUNT 181 10^3/uL (150-450); RED BLOOD COUNT 3.98 10^6/uL (3.72-5.28); RED CELL DISTRIBUTION WIDTH 14.1 % (11.5-14.0); SEGMENTED NEUTROPHILS % (AUTO) 81.3 % (42-78); TOTAL CELLS COUNTED % (AUTO) 100 %
[2018-09-21 15:23] LABS: VENOUS BLOOD BASE EXCESS -3.2 mmol/L; VENOUS BLOOD HCO3 23.4 mmol/L (20-32); VENOUS BLOOD PCO2 47.8 mmHg (35-63); VENOUS BLOOD PH 7.31 (7.30-7.42)
[2018-09-21 15:37] LABS: ALANINE AMINOTRANSFERASE 18 U/L (9-52); ALBUMIN 4.5 g/dL (3.5-5.0); ALKALINE PHOSPHATASE 55 U/L (38-126); ANION GAP 18 (5-19); ASPARTATE AMINO TRANSFERASE 28 U/L (14-36); BILIRUBIN,DIRECT 0.3 mg/dL (0.0-0.4); BILIRUBIN,TOTAL 1.7 mg/dL (0.2-1.3); BLOOD UREA NITROGEN 26 mg/dL (7-20); CALCIUM 10.6 mg/dL (8.4-10.2); CARBON DIOXIDE 23 mmol/L (22-30); CHLORIDE 95 mmol/L (98-107); POTASSIUM 4.4 mmol/L (3.6-5.0); TOTAL PROTEIN 7.1 g/dL (6.3-8.2)
[2018-09-21 15:46] LABS: GLUCOSE 457 mg/dL (75-110)
[2018-09-21 15:52] LABS: APPEARANCE,URINE CLEAR; BILIRUBIN,URINE NEGATIVE (NEGATIVE); COLOR,URINE YELLOW; GLUCOSE, URINE >=500 mg/dL (NEGATIVE); KETONES,URINE 20 mg/dL (NEGATIVE); LEUKOCYTE ESTERASE,URINE NEGATIVE (NEGATIVE); NITRITE,URINE NEGATIVE (NEGATIVE); PROTEIN,URINE NEGATIVE (NEGATIVE); URINE SPECIFIC GRAVITY 1.025; UROBILINOGEN,URINE NEGATIVE mg/dL (<2.0)
--- NOTE | 2018-09-21 16:22 | EKG REPORT ---
SEVERITY:- BORDERLINE ECG - SINUS RHYTHM PROBABLE LEFT ATRIAL ABNORMALITY BORDERLINE LEFT AXIS DEVIATION BORDERLINE T ABNORMALITIES, LATERAL LEADS : Confirmed by: Tigre Forrest MD 21-Sep-2018 16:21:30
[2018-09-21] MEDS ORDERED: INSULIN REG, HUMAN 100 UNIT/ML 3 ML VIAL (PYX) SUBCUT ONE ×3 (16:52→20:02)
[2018-09-21] MEDS ORDERED: ONDANSETRON HCL INJ/PF 4 MG/2 ML SDV IV ONE (18:00)
--- NOTE | 2018-09-21 18:00 | RADIOLOGY REPORT (SQ) ---
EXAM DESCRIPTION: CHEST SINGLE VIEW COMPLETED DATE/TIME: 09/21/2018 5:23 pm REASON FOR STUDY: cough COMPARISON: 08/15/2018 EXAM PARAMETERS: NUMBER OF VIEWS: One view. TECHNIQUE: Single frontal radiographic view of the chest acquired. RADIATION DOSE: NA LIMITATIONS: None. FINDINGS: LUNGS AND PLEURA: No opacities, masses or pneumothorax. No pleural effusion. MEDIASTINUM AND HILAR STRUCTURES: No masses. Contour normal. HEART AND VASCULAR STRUCTURES: Stable cardiomegaly. The central vasculature appears normal. BONES: No acute findings. HARDWARE: Port-A-Cath terminates in the region of the superior vena cava. Cervicothoracic junction s melissa fusion hardware. OTHER: No other significant finding. IMPRESSION: NO ACUTE RADIOGRAPHIC FINDING IN THE CHEST. TECHNICAL DOCUMENTATION: JOB ID: [id number] [employer]- All Rights Reserved Reading location - IP/workstation name: [email or web address]
--- NOTE | 2018-09-21 18:04 | ER Document Report ---
ED Blood Sugar Problem - General Mode of Arrival: Ambulatory Information source: Patient, Relative TRAVEL OUTSIDE OF THE [place] IN LAST 30 DAYS: No <TONYA KEY - Last Filed: 09/21/18 22:34> <BRITTANEY BERG - Last Filed: 09/22/18 01:13> - General Chief Complaint: High Blood Sugar Stated Complaint: HIGH BLOOD SUGAR Time Seen by Provider: 09/21/18 14:35 Primary Care Provider: DERICK SANTANA MD [Primary Care Provider] - Follow up as needed Notes: Patient is a 68-year-old female with history of type 1 diabetes and DKA as recent as a month ago who presents to the ER today for high blood sugars, nausea, vomiting, abdominal pain that started last night. Patient does have an insulin pump. She states she has not eaten all day for fear that it her sugar would increase even more. She denies any recent illness other than the vomiting and mid abdominal pain that started last night. She denies any fevers or chills. She denies any diarrhea. (TONYA KEY) - Related Data Allergies/Adverse Reactions: No Known Allergies Allergy (Verified 06/25/17 07:51) Past Medical History - General Information source: Patient - Social History Smoking Status: Never Smoker Chew tobacco use (# tins/day): No Frequency of alcohol use: None Drug Abuse: None Family History: Reviewed & Not Pertinent Patient has suicidal ideation: No Patient has homicidal ideation: No - Past Medical History Cardiac Medical History: Reports: Hx Hypertension Denies: Hx Congestive Heart Failure, Hx Heart Attack, Hx Heart Murmur Pulmonary Medical History: Reports: Hx Bronchitis, Hx COPD Denies: Hx Asthma, Hx Pneumonia, Hx Tuberculosis Neurological Medical History: Denies: Hx Cerebrovascular Accident, Hx Seizures Endocrine Medical History: Reports: Hx Diabetes Mellitus Type 1 Renal/ Medical History: Denies: Hx Peritoneal Dialysis GI Medical History: Denies: Hx Hepatitis, Hx Hiatal Hernia, Hx Ulcer Musculoskeletal Medical History: Reports Hx Arthritis Psychiatric Medical History: Denies: Hx Depression Infectious Medical History: Denies: Hx Hepatitis Past Surgical History: Reports: Hx Hysterectomy. Denies: Hx Mastectomy, Hx Open Heart Surgery, Hx Pacemaker - Immunizations Hx Diphtheria, Pertussis, Tetanus Vaccination: Yes Hx Pneumococcal Vaccination: 03/18/09 <TONYA KEY - Last Filed: 09/21/18 22:34> Review of Systems - Review of Systems Constitutional: No symptoms reported EENT: No symptoms reported Cardiovascular: No symptoms reported Respiratory: No symptoms reported Gastrointestinal: See HPI Genitourinary: No symptoms reported Female Genitourinary: No symptoms reported Musculoskeletal: No symptoms reported Skin: No symptoms reported Hematologic/Lymphatic: No symptoms reported Neurological/Psychological: No symptoms reported <GLORIABEATATONYA - Last Filed: 09/21/18 22:34> Physical Exam <GLORIALYUBOVTONYA SEE - Last Filed: 09/21/18 22:34> - Vital signs Vitals: Temp Pulse Resp BP Pulse Ox 98.4 F 94 16 128/41 H 95 09/21/18 11:47 09/21/18 11:47 09/21/18 11:47 09/21/18 11:47 09/21/18 11:47 - Notes Notes: PHYSICAL EXAMINATION: GENERAL: uncomfortable-appearing and in no acute distress. HEAD: Atraumatic, normocephalic. EYES: Pupils equal round and reactive to light, extraocular movements intact, sclera anicteric, conjunctiva are normal. NECK: Normal range of motion, supple without lymphadenopathy LUNGS: CTAB and equal. No wheezes rales or rhonchi. HEART: Regular rate and rhythm without murmurs ABDOMEN: Soft, mild periumbilical tenderness. No guarding, no rebound BACK: no vertebral tenderness, normal ROM GI/: no CVA tenderness EXTREMITIES: Normal range of motion, no pitting edema. No cyanosis. NEUROLOGICAL: Cranial nerves grossly intact. Normal sensory/motor exams. PSYCH: Normal mood, normal affect. SKIN: Warm, Dry, normal turgor, no rashes or lesions noted (SHAHIDTONYA) Course - Laboratory Result Diagrams: 09/21/18 15:08 09/21/18 15:08 <GLORIABEATATONYA - Last Filed: 09/21/18 22:34> - Laboratory Result Diagrams: 09/21/18 15:08 09/21/18 15:08 <MORENABRITTANEY Srinath - Last Filed: 09/22/18 01:13> - Re-evaluation Re-evalutation: 09/21/18 18:01 I believe pt is fragile at this point and she is a brittle type 1 diabetic, her anion gap is 18, pH is 7.31 and bicarb is normal. vitals are all normal.I attempted to admit at this time as her sugar is still in the high 400s after IV fluids, but Dr. Stover declines admission due to no evidence of DKA. ordered her to bolus herself insulin at this point via insulin pump. 09/21/18 20:[address] Middleton who declines admission again at this time as pt does not have acidosis, normal pH, anion gap and bicarb, she is not vomiting, pt's glucose did not resolve with the 7 units she gave herself through her pump, will give her another 8 units and repeat labwork. I have been speaking with Dr. Berry about this patient, at this time care handed off to Brittaney Berg NP. 09/21/18 20:03 09/21/18 22:38 (TONYA KEY) 09/21/18 22:17 Have been notified by the primary nurse that the patient's blood pressure is still 94/38 with a map of 54. We will access her Port-A-Cath and give her another bolus. 09/21/18 23:12 Patient's lactic acid is 4.1. She is still mildly hypotensive, map is 64 after the third bolus. I will call Dr. Middleton for admission due to patient needing continuous IV fluids for her hypotension. 09/21/18 23:16 I have attempted to call Dr. Middleton, but the phone is busy. 09/21/18 23:[address] Middleton and he is suspicious of a possible perforated bowel. She will be sent for CT of the abdomen with IV contrast to rule out any perforation. I also add a lipase to assess for pancreatitis. 09/22/18 00:[address] of the abdomen shows stool in the colon, but does not show a perforation. Her lipase is 27, ruling out pancreatitis. I will recall Dr. Middleton and update him on the CT. 09/22/18 01:[address] Middleton and the patient will be admitted to telemetry on observation status. Patient states that she has a sore throat. She states the sore throat started about an hour ago. She will be given Tylenol for her sore throat. (PLACE,BRITTANEY M) - Vital Signs Vital signs: Temp Pulse Resp BP Pulse Ox 98.4 F 94 21 H 124/51 L 97 09/21/18 11:47 09/21/18 11:47 09/22/18 00:23 09/22/18 00:23 09/22/18 00:23 - Laboratory Laboratory results interpreted by me: 09/21/18 09/21/18 09/21/18 15:08 15:08 15:20 RDW 14.1 H Seg Neutrophils % 81.3 H Sodium 136.0 L Chloride 95 L BUN 26 H Glucose 457 H* POC Glucose Lactic Acid Calcium 10.6 H Total Bilirubin 1.7 H Urine Glucose (UA) >=500 H Urine Ketones 20 H Urine Ascorbic Acid 20 H 09/21/18 09/21/18 19:24 22:37 RDW Seg Neutrophils % Sodium Chloride BUN Glucose POC Glucose 443 H* Lactic Acid 4.1 H Calcium Total Bilirubin Urine Glucose (UA) Urine Ketones Urine Ascorbic Acid Discharge <TONYA KEY - Last Filed: 09/21/18 22:34> - Discharge Unit Admitted: Telemetry <BRITTANEY BERG - Last Filed: 09/22/18 01:13> - Discharge Clinical Impression: Hyperglycemia Condition: Critical Disposition: ADMITTED OBSERVATION Referrals: DEIRCK SANTANA MD [Primary Care Provider] - Follow up as needed
[2018-09-21] MEDS ORDERED: POTASSI CL 20 MEQ/50 ML RIDER 20 MEQ/50 ML RTUPB IV ONE (18:14)
--- NOTE | 2018-09-21 19:43 | RADIOLOGY REPORT (SQ) ---
EXAM DESCRIPTION: KUB/ABDOMEN (SINGLE VIEW) COMPLETED DATE/TIME: 09/21/2018 7:13 pm REASON FOR STUDY: abd pain, n/v COMPARISON: 06/25/2017 NUMBER OF VIEWS: One view. TECHNIQUE: Supine radiographic image of the abdomen acquired. LIMITATIONS: None. FINDINGS: BOWEL GAS PATTERN: Copious gas and stool are seen within the colon without evidence of obs truction. CALCIFICATIONS: No suspicious calcifications. SOFT TISSUES: No gross mass or suggestion of organomegaly. HARDWARE: Medical monitoring devices overlie the abdomen and pelvis. BONES: No acute fracture. No worrisome bone lesions. OTHER: No other significant finding. IMPRESSION: Nonobstructed bowel gas pattern demonstrating copious colonic stool and gas. TECHNICAL DOCUMENTATION: JOB ID: [id number] [employer]- All Rights Reserved Reading location - IP/workstation name: [email or web address]
[2018-09-21] MEDS ORDERED: INSULIN REG, HUMAN 100 UNIT/ML 3 ML VIAL (PYX) IV ONE (19:45)
[2018-09-21] MEDS ORDERED: SENNOSIDES/DOCUSATE 8.6-50 MG 1 EACH TABLET PO ONE (20:01)
--- NOTE | 2018-09-22 00:29 | RADIOLOGY REPORT (SQ) ---
EXAM DESCRIPTION: CT ABDOMEN PELVIS WITH IV CONTRAST COMPLETED DATE/TME: 09/21/2018 23:29 CLINICAL HISTORY: 68 years, Female, eval for perforation Comparison: None TECHNIQUE: Contiguous axial CT images of the abdomen and pelvis were obtained. Sagittal and coronal reformats were reviewed. This exam was performed according to our departmental dose-optimization program, which includes automated exposure control, adjustment of the mA and/or kV according to patient size and/or use of iterative reconstruction technique. FINDINGS: Lung bases: Clear. Liver:Unremarkable. No focal liver lesion. Gallbladder:Gallstones. No CT evidence of cholecystitis. Spleen:Unremarkable Pancreas: Pancreas is unremarkable. Adrenal glands:Within normal limits. Kidneys/ureters:Within normal limits Stomach/small bowel/colon: Stomach is unremarkable. Small bowel is unremarkable. Marked colonic stool. No bowel wall thickening. Appendix: Appendix not seen with certainty. However, no inflammatory changes or fluid seen in the pericecal region and right lower quadrant. Peritoneum: No free fluid. Vascular structures: within normal limits Lymph nodes: No abnormal lymph nodes. Bladder: Distended but otherwise normal in appearance. Pelvic organs: No acute abnormality Bones: No acute osseous abnormality. Soft tissues: Small fat containing umbilical hernia.. IMPRESSION: Findings of constipation otherwise no acute intra-abdominal abnormality.
[2018-09-22] MEDS ORDERED: LACTULOSE SYRUP 20 GM/30 ML UDCUP PR ONE (01:06)
[2018-09-22] MEDS ORDERED: LACTULOSE SYRUP 20 GM/30 ML UDCUP PO ONE (01:06)
[2018-09-22] MEDS ORDERED: DEXTROSE 50%-WATER 25 GM/50 ML DISP.SYRIN IV PRN ×2 (01:10)
[2018-09-22] MEDS ORDERED: IPRATROPIUM/ALBUTEROL 0.5-2.5 MG/3 ML AMPUL NEB PRN (01:10)
[2018-09-22] MEDS ORDERED: ACETAMINOPHEN 325 MG TABLET PO PRN (01:10)
[2018-09-22] MEDS ORDERED: MAG HYDROX/AL HYDROX/SIMETH SUSP 30 ML UDCUP PO PRN (01:10)
[2018-09-22] MEDS ORDERED: GLUCAGON,HUMAN RECOMB 1 MG INJ IM PRN (01:10)
[2018-09-22] MEDS ORDERED: DEXTROSE 40% GEL 15 GM TUBE PO PRN ×2 (01:10)
[2018-09-22] MEDS ORDERED: ACETAMINOPHEN 325 MG TABLET PO ONE (01:12)
[2018-09-22] MEDS ORDERED: METRONIDAZOLE 500 MG TABLET PO ONE ×2 (01:30→03:45)
[2018-09-22 01:33] LABS: ANION GAP 13 (5-19); BLOOD UREA NITROGEN 24 mg/dL (7-20); CALCIUM 7.3 mg/dL (8.4-10.2); CARBON DIOXIDE 15 mmol/L (22-30); CHLORIDE 114 mmol/L (98-107); GLUCOSE 278 mg/dL (75-110); SODIUM 141.5 mmol/L (137-145)
[2018-09-22 01:42] LABS: POTASSIUM 3.2 mmol/L (3.6-5.0)
[2018-09-22] MEDS ORDERED: CIPROFLOXACIN 400 MG/D5W RTU 400 MG/200 ML RTUPB IV ONE (02:00)
[2018-09-22] MEDS ORDERED: KETOROLAC TROMETHAMINE INJ/PF 30 MG/1 ML SDV IV PRN (02:05)
[2018-09-22] MEDS: NORMAL SALINE 1000 ML 1,000 ML IV PRN ×2 (03:21→07:21)
[2018-09-22] MEDS: POTASSI CL 20 MEQ/50 ML RIDER 20 MEQ/50 ML RTUPB IV SCH ×2 (04:17→06:52)
[2018-09-22 04:41] LABS: ABSOLUTE LYMPHOCYTES (AUTO) 1.3 10^3/uL (0.5-4.7); ABSOLUTE MONOCYTES (AUTO) 0.6 10^3/uL (0.1-1.4); ABSOLUTE NEUT (AUTO) 9.8 10^3/uL (1.7-8.2); BASOPHILS % (AUTO) 0.1 % (0-2); HEMATOCRIT 31.8 % (36.0-47.0); HEMOGLOBIN 10.6 g/dL (12.0-15.5); LYMPHOCYTES % (AUTO) 11.3 % (13-45); MEAN CORPUSCULAR HEMOGLOBIN 30.9 pg (27.0-33.4); MEAN CORPUSCULAR HGB CONC 33.2 g/dL (32.0-36.0); MEAN CORPUSCULAR VOLUME 93 fl (80-97); PLATELET COUNT 149 10^3/uL (150-450); RED BLOOD COUNT 3.42 10^6/uL (3.72-5.28); RED CELL DISTRIBUTION WIDTH 14.7 % (11.5-14.0); SEGMENTED NEUTROPHILS % (AUTO) 83.6 % (42-78); TOTAL CELLS COUNTED % (AUTO) 100 %; WHITE BLOOD COUNT 11.7 10^3/uL (4.0-10.5)
[2018-09-22 04:58] LABS: ALANINE AMINOTRANSFERASE 19 U/L (9-52); ALBUMIN 3.6 g/dL (3.5-5.0); ALKALINE PHOSPHATASE 44 U/L (38-126); ANION GAP 17 (5-19); ASPARTATE AMINO TRANSFERASE 31 U/L (14-36); BILIRUBIN,DIRECT 0.3 mg/dL (0.0-0.4); BILIRUBIN,TOTAL 0.7 mg/dL (0.2-1.3); BLOOD UREA NITROGEN 27 mg/dL (7-20); CALCIUM 9.3 mg/dL (8.4-10.2); CARBON DIOXIDE 17 mmol/L (22-30); CHLORIDE 104 mmol/L (98-107); GLUCOSE 363 mg/dL (75-110); POTASSIUM 3.9 mmol/L (3.6-5.0); SODIUM 137.8 mmol/L (137-145); TOTAL PROTEIN 5.8 g/dL (6.3-8.2)
[2018-09-22] MEDS ORDERED: LACTULOSE SYRUP 20 GM/30 ML UDCUP ONE (05:09)
[2018-09-22] MEDS: HEPARIN SOD (PORCINE) 5,000 UNIT/ML 1 ML SYRINGE SUBCUT SCH ×3 (05:43→22:12)
--- NOTE | 2018-09-22 05:59 | PDOC H&P ---
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 Saez, diabetes, hypertension, chronic pain, chronic constipation. She presents with several days of aching, cramping right-sided abdominal pain exacerbated by movement associated with nausea, constipation and hyperglycemia. In the emergency room she has an abdominal series revealing constipation without obstruction. She developed of hypotension after a Dulcolax suppository and worsened abdominal pain requiring 3 L normal saline resuscitation. CT obtained did not reveal perforation but was referred to the hospitalist for admission. Patient admits intermittent chronic constipation. Past Medical History Cardiac Medical History: Reports: Hypertension Denies: Congestive Heart Failure, Myocardial Infarction, Heart Murmur Pulmonary Medical History: Reports: Bronchitis, Chronic Obstructive Pulmonary D isease (COPD) Denies: Asthma, Pneumonia, Tuberculosis Neurological Medical History: Denies: Seizures Endocrine Medical History: Reports: Diabetes Mellitus Type 1 GI Medical History: Denies: Hepatitis, Hiatal Hernia Musculoskeltal Medical History: Reports: Arthritis Psychiatric Medical History: Denies: Depression, Tobacco Dependency Hematology: Reports: Anemia - HX Denies: Hemophilia, Sickle Cell Disease Past Surgical History Past Surgical History: Reports: Hysterectomy Denies: Amputation, Mastectomy, Pacemaker Social History Information Source: Patient, ON LICENSE OF [facility] Records Smoking Status: Never Smoker Frequency of Alcohol Use: None Hx Recreational Drug Use: No Drugs: None Hx Prescription Drug Abuse: No - Advance Directive Resuscitation Status: Full Code Family History Family History: DM, Hypertension Parental Family History Reviewed: Yes Children Family History Reviewed: Yes Sibling(s) Family History Reviewed.: Yes Medication/Allergy Home Medications: Ascorbic Acid [Vitamin C 500 mg Tablet] 500 mg PO DAILY 08/15/18 Aspirin [Ecotrin 81 mg EC Tablet] 81 mg PO DAILY 08/15/18 Cetirizine HCl [Zyrtec 10 mg Tablet] 10 mg PO DAILY 08/15/18 Cyclosporine 0.05% Oph Emulsio [Restasis 0.05% Oph Emulsion Pf 0.4 ml] 1 drop OU BID 08/15/18 Diphenoxylate HCl/Atrop Sulf [Lomotil 2.5 mg Tablet] 1 tab PO TIDP PRN 08/15/18 Docusate Sodium [Colace 100 mg Capsule] 100 mg PO DAILY 08/15/18 Furosemide [Lasix 40 mg Tablet] 40 mg PO DAILY 08/15/18 Insulin Aspart [Novolog Insulin (Aspart) 100 unit/mL] 0 units SQ .PUMP 08/15/18 Lactulose [Constulose 10 gm/15 mL Oral Solution] 30 ml PO DAILYP PRN 08/15/18 Losartan/Hydrochlorothiazide [Hyzaar 50-12.5 Tablet] 1 tab PO DAILY 08/15/18 Pnv No.95/Ferrous Fum/Folic AC [ Vitamin Tablet] 1 tab PO DAILY 08/15/18 Potassium Chloride [Klor-Con 10 Meq Capsule ER] 10 meq PO DAILY 08/15/18 Pravastatin Sodium [Pravachol] 40 mg PO QHS 08/15/18 Valacyclovir HCl [Valtrex 500 mg Tablet] 500 mg PO Q2D 08/15/18 Metoclopramide HCl [Reglan] 10 mg PO Q6 PRN 4 Days #16 tablet 08/19/18 Allergies/Adverse Reactions: No Known Allergies Allergy (Verified 06/25/17 07:51) Review of Systems Constitutional: PRESENT: as per HPI, anorexia, fatigue, fever(s). ABSENT: weight gain, weight loss Eyes: ABSENT: visual disturbances Ears: ABSENT: hearing changes Cardiovascular: ABSENT: chest pain, dyspnea on exertion, edema, orthropnea, palpitations Respiratory: ABSENT: cough, hemoptysis Gastrointestinal: PRESENT: as per HPI, abdominal pain, bloating, constipation, nausea. ABSENT: diarrhea, vomiting Genitourinary: ABSENT: dysuria, hematuria Musculoskeletal: ABSENT: joint swelling Integumentary: ABSENT: rash, wounds Neurological: ABSENT: abnormal gait, abnormal speech, confusion, dizziness, focal weakness, syncope Psychiatric: ABSENT: anxiety, depression, homidical ideation, suicidal ideation Endocrine: ABSENT: cold intolerance, heat intolerance, polydipsia, polyuria Hematologic/Lymphatic: ABSENT: easy bleeding, easy bruising Physical Exam Vital Signs: Temp Pulse Resp BP Pulse Ox 98.7 F 98 18 109/39 L 99 09/22/18 02:50 09/22/18 02:50 09/22/18 02:50 09/22/18 02:50 09/22/18 02:50 Intake & Output 09/20/18 09/21/18 09/22/18 11:59 11:59 11:59 Intake Total 4250 Balance 4250 Weight 57.3 kg 59.9 kg General appearance: PRESENT: cooperative, severe distress Head exam: PRESENT: atraumatic, normocephalic Eye exam: PRESENT: conjunctiva pink, EOMI, PERRLA. ABSENT: scleral icterus Ear exam: PRESENT: normal external ear exam Mouth exam: PRESENT: moist, tongue midline Neck exam: ABSENT: carotid bruit, JVD, lymphadenopathy, thyromegaly Respiratory exam: PRESENT: clear to auscultation pretty, tachypnea. ABSENT: rales, rhonchi, wheezes Cardiovascular exam: PRESENT: RRR. ABSENT: diastolic murmur, rubs, systolic mu rmur Pulses: PRESENT: normal dorsalis pedis pul Vascular exam: PRESENT: normal capillary refill GI/Abdominal exam: PRESENT: diminished bowel sounds, distended, firm, hypoactive bowel sounds, tenderness. ABSENT: ascites, guarding Rectal exam: PRESENT: deferred Extremities exam: PRESENT: full ROM. ABSENT: calf tenderness, clubbing, pedal edema Neurological exam: PRESENT: alert, awake, oriented to person, oriented to place, oriented to time, oriented to situation, CN II-XII grossly intact. ABSENT: motor sensory deficit Psychiatric exam: PRESENT: appropriate affect, normal mood. ABSENT: homicidal ideation, suicidal ideation Skin exam: PRESENT: dry, intact, warm. ABSENT: cyanosis, rash Results Laboratory Results: 09/22/18 04:15 09/22/18 04:15 09/21/18 09/21/18 09/21/18 15:08 15:08 15:08 WBC 8.0 RBC 3.98 Hgb 12.4 Hct 37.4 MCV 94 MCH 31.3 MCHC 33.3 RDW 14.1 H Plt Count 181 Seg Neutrophils % 81.3 H Lymphocytes % 13.0 Monocytes % 5.5 Eosinophils % 0.0 Basophils % 0.2 Absolute Neutrophils 6.5 Absolute Lymphocytes 1.0 Absolute Monocytes 0.4 Absolute Eosinophils 0.0 Absolute Basophils 0.0 VBG pH 7.31 VBG pCO2 47.8 VBG HCO3 23.4 VBG Base Excess -3.2 Sodium 136.0 L Potassium 4.4 Chloride 95 L Carbon Dioxide 23 Anion Gap 18 BUN 26 H Creatinine 0.84 Est GFR ( Amer) > 60 Est GFR (Non-Af Amer) > 60 Glucose 457 H* Lactic Acid Calcium 10.6 H Magnesium Total Bilirubin 1.7 H AST 28 ALT 18 Alkaline Phosphatase 55 Total Protein 7.1 Albumin 4.5 Lipase Urine Color Urine Appearance Urine pH Ur Specific Cobb Urine Protein Urine Glucose (UA) Urine Ketones Urine Blood Urine Nitrite Ur Leukocyte Esterase Urine WBC (Auto) Urine RBC (Auto) 09/21/18 09/21/18 09/21/18 15:08 15:20 22:37 WBC RBC Hgb Hct MCV MCH MCHC RDW Plt Count Seg Neutrophils % Lymphocytes % Monocytes % Eosinophils % Basophils % Absolute Neutrophils Absolute Lymphocytes Absolute Monocytes Absolute Eosinophils Absolute Basophils VBG pH VBG pCO2 VBG HCO3 VBG Base Excess Sodium Potassium Chloride Carbon Dioxide Anion Gap BUN Creatinine Est GFR ( Amer) Est GFR (Non-Af Amer) Glucose Lactic Acid 4.1 H Calcium Magnesium Total Bilirubin AST ALT Alkaline Phosphatase Total Protein Albumin Lipase 27.6 Urine Color YELLOW Urine Appearance CLEAR Urine pH 6.0 Ur Specific Cobb 1.025 Urine Protein NEGATIVE Urine Glucose (UA) >=500 H Urine Ketones 20 H Urine Blood NEGATIVE Urine Nitrite NEGATIVE Ur Leukocyte Esterase NEGATIVE Urine WBC (Auto) 1 Urine RBC (Auto) 2 09/22/18 09/22/18 09/22/18 00:24 01:09 01:09 WBC RBC Hgb Hct MCV MCH MCHC RDW Plt Count Seg Neutrophils % Lymphocytes % Monocytes % Eosinophils % Basophils % Absolute Neutrophils Absolute Lymphocytes Absolute Monocytes Absolute Eosinophils Absolute Basophils VBG pH VBG pCO2 VBG HCO3 VBG Base Excess Sodium Cancelled 141.5 Potassium Cancelled 3.2 L D Chloride Cancelled 114 H Carbon Dioxide Cancelled 15 L Anion Gap Cancelled 13 BUN Cancelled 24 H Creatinine Cancelled 0.65 Est GFR ( Amer) Cancelled > 60 Est GFR (Non-Af Amer) Cancelled > 60 Glucose Cancelled 278 H Lactic Acid Calcium Cancelled 7.3 L Magnesium 1.6 Total Bilirubin AST ALT Alkaline Phosphatase Total Protein Albumin Lipase Urine Color Urine Appearance Urine pH Ur Specific Cobb Urine Protein Urine Glucose (UA) Urine Ketones Urine Blood Urine Nitrite Ur Leukocyte Esterase Urine WBC (Auto) Urine RBC (Auto) 09/22/18 09/22/18 04:15 04:15 WBC 11.7 H RBC 3.42 L Hgb 10.6 L Hct 31.8 L MCV 93 MCH 30.9 MCHC 33.2 RDW 14.7 H Plt Count 149 L Seg Neutrophils % 83.6 H Lymphocytes % 11.3 L Monocytes % 5.0 Eosinophils % 0.0 Basophils % 0.1 Absolute Neutrophils 9.8 H Absolute Lymphocytes 1.3 Absolute Monocytes 0.6 Absolute Eosinophils 0.0 Absolute Basophils 0.0 VBG pH VBG pCO2 VBG HCO3 VBG Base Excess Sodium 137.8 Potassium 3.9 Chloride 104 Carbon Dioxide 17 L Anion Gap 17 BUN 27 H Creatinine 0.90 Est GFR ( Amer) > 60 Est GFR (Non-Af Amer) > 60 Glucose 363 H Lactic Acid Calcium 9.3 Magnesium Total Bilirubin 0.7 AST 31 ALT 19 Alkaline Phosphatase 44 Total Protein 5.8 L Albumin 3.6 Lipase Urine Color Urine Appearance Urine pH Ur Specific Cobb Urine Protein Urine Glucose (UA) Urine Ketones Urine Blood Urine Nitrite Ur Leukocyte Esterase Urine WBC (Auto) Urine RBC (Auto) 09/21/18 15:08 Troponin I < 0.012 Impressions: Chest X-Ray 09/21/18 14:42 IMPRESSION: NO ACUTE RADIOGRAPHIC FINDING IN THE CHEST. KUB X-Ray 09/21/18 18:43 IMPRESSION: Nonobstructed bowel gas pattern demonstrating copious colonic stool and gas. Abdomen/Pelvis CT 09/21/18 23:29 IMPRESSION: Findings of constipation otherwise no acute intra-abdominal abnormality. Assessment & Plan - Diagnosis (1) Colitis Is this a current diagnosis for this admission?: Yes Plan: Secondary to fecal impaction versus acute diverticulitis. Enema, IV cip rofloxacin and Flagyl ordered. Follow-up blood culture and CBC (2) Fecal impaction Is this a current diagnosis for this admission?: Yes Plan: Lactulose enema and education (3) Diabetes type I Is this a current diagnosis for this admission?: Yes Plan: One half outpatient long acting insulin initiated, Humalog sliding scale (4) Immunodeficiency Is this a current diagnosis for this admission?: Yes Plan: IVIG dependent for familial hyperglobulinemia. Follow-up random cortisol, consider solu Cortef - Time Time Spent: 50 to 70 Minutes - Inpatient Certification Medical Necessity: Need Close Monitoring Due to Risk of Patient Decompensation
[2018-09-22] MEDS: INSULIN LISPRO 100 UNIT/ML 3 ML VIAL SUBCUT SCH ×3 (07:31→17:16)
[2018-09-22] MEDS ORDERED: CIPROFLOXACIN 400 MG/D5W RTU 400 MG/200 ML RTUPB IV SCH (10:00)
[2018-09-22] MEDS: ASPIRIN 81 MG TABLET, ENT COATED PO SCH (11:21)
[2018-09-22] MEDS: CYCLOSPORINE 0.05% OPH EMULSIO 0.4 ML DROPERETTE OU SCH ×2 (11:21→17:17)
[2018-09-22] MEDS: METRONIDAZOLE 500 MG TABLET PO SCH ×2 (11:21→15:41)
[2018-09-22] MEDS: DOCUSATE SODIUM 100 MG CAPSULE PO SCH (11:21)
[2018-09-22] MEDS: CETIRIZINE 10 MG TABLET PO SCH (11:22)
--- NOTE | 2018-09-22 11:38 | RADIOLOGY REPORT (SQ) ---
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 Images reviewed wi th bone, brain and subdural windows. Additional sagittal and coronal reconstructions were generated. Images stored on PACS. All CT scanners at this facility use dose modulation, iterative reconstruction, and/or weight based d osing when appropriate to reduce radiation dose to as low as reasonably achievable (ALARA). [facility]: Dose Right [facility]: CareDose [facility]: Dose Right [facility]: Teradose 4D [facility]: [employer] RADIATION DOSE: CT Rad equipment meets quality standard of care and radiation dose reduction techniq ues were employed. CTDIvol: 53.2 mGy. DLP: 991 mGy-cm. mGy. LIMITATIONS: None. FINDINGS: VENTRICLES: Normal size and contour. CEREBRUM: No masses. No hemorrhage. No midline shift. No evidence for acute infarction. Few scatte red areas of low density in the white matter most likely chronic small vessel ischemic changes. CEREBELLUM: No masses. No hemorrhage. No alteration of density. No evidence for acute infarction. EXTRAAXIAL SPACES: No fluid collections. No masses. ORBITS AND GLOBE: No intra- or extraconal masses. Normal contour of globe without masses. CALVARIUM: No fracture. PARANASAL SINUSES: No fluid or mucosal thickening. SOFT TISSUES: No mass or hematoma. OTHER: No other significant finding. IMPRESSION: No acute intracranial pathology. EVIDENCE OF ACUTE STROKE: NO. COMMENT: Quality ID # [id number]: Final reports with documentation of one or more dose reduction techniques (e.g., Automated exposure control, adjustment of the mA and/or kV according to patient size, use of iterative reconstruction technique) TECHNICAL DOCUMENTATION: JOB ID: [id number] [employer]- All Rights Reserved Reading location - IP/workstation name: [email or web address]
[2018-09-22] MEDS ORDERED: INSULIN DETEMIR 100 UNIT/ML 3 ML PEN SUBCUT SCH ×2 (12:00→22:00)
--- NOTE | 2018-09-22 12:13 | RADIOLOGY REPORT (SQ) ---
EXAM DESCRIPTION: CHEST SINGLE VIEW COMPLETED DATE/TIME: 09/22/2018 11:37 am REASON FOR STUDY: assess for congestion COMPARISON: 09/21/2018 EXAM PARAMETERS: NUMBER OF VIEWS: One view. TECHNIQUE: Single frontal radiographic view of the chest acquired. RADIATION DOSE: NA LIMITATIONS: None. FINDINGS: LUNGS AND PLEURA: No opacities, masses or pneumothorax. No pleural effusion. MEDIASTINUM AND HILAR STRUCTURES: No masses. Contour normal. HEART AND VASCULAR STRUCTURES: Heart normal in size. Normal vasculature. BONES: Cardiomegaly. HARDWARE: None in the chest. OTHER: Left chest port catheter. IMPRESSION: Cardiomegaly without acute abnormality of the lungs. No focal airspace opacity. TECHNICAL DOCUMENTATION: JOB ID: [id number] [employer]- All Rights Reserved Reading location - IP/workstation name: [email or web address]
--- NOTE | 2018-09-22 18:03 | PDOC PROGRESS REPORT ---
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 Saez, diabetes on an insulin pump, hypertension, chronic pain, chronic constipation who was admitted for elevated sugars, right sided abdominal pain, constipation, and malfunctioning insulin pump. She was started recently on ciprofloxacin for UTI. She was also reported to be hypotensive after using a dulcolax suppository. In the ER, she was noted to be severely hyperglycemic. CT of the abdomen and pelvis was only remarkable for constipation. She also reports of a history of a benign brain tumor. Patient had one large, nonbloody, nonwatery bowel movement this morning. She says she feels better. Denies abdominal pain. She says her insulin pump stopped working on night. Sugars this morning went up to the 400s. She usually calls her ball shagger in [place] when she gets issues with the pump. Unfortunately, it's the weekend and the endo clinic is closed. Currently only on sliding scale. She will be started on Levemir. Blood pressures are still on the low normal end but has improved. She received 5 L of fluids from the ER so far. Denies chest pain or SOB. No fever or chills. Reason For Visit: UNCONTROLLED DM,LACTIC ACIDOSIS,ACUTE Physical Exam Vital Signs: Temp Pulse Resp BP Pulse Ox 98.3 F 94 20 112/46 L 97 09/22/18 15:28 09/22/18 15:28 09/22/18 15:28 09/22/18 15:28 09/22/18 15:28 Intake & Output 09/21/18 09/22/18 09/23/18 06:59 06:59 06:59 Intake Total 4800 2250 Balance 4800 2250 Weight 132 lb 0.91 oz General appearance: PRESENT: no acute distress, well-developed, well-nourished Head exam: PRESENT: atraumatic, normocephalic Eye exam: PRESENT: conjunctiva pink, EOMI, PERRLA. ABSENT: scleral icterus Ear exam: PRESENT: normal external ear exam Mouth exam: PRESENT: moist, tongue midline Neck exam: ABSENT: carotid bruit, JVD, lymphadenopathy, thyromegaly Respiratory exam: PRESENT: clear to auscultation pretty. ABSENT: rales, rhonchi, wheezes Cardiovascular exam: PRESENT: RRR. ABSENT: diastolic murmur, rubs, systolic murmur Pulses: PRESENT: normal dorsalis pedis pul GI/Abdominal exam: PRESENT: normal bowel sounds, soft. ABSENT: distended, guarding, mass, organolmegaly, rebound, tenderness Rectal exam: PRESENT: deferred Neurological exam: PRESENT: alert, awake, oriented to person, oriented to place, oriented to time, oriented to situation, CN II-XII grossly intact. ABSENT: motor sensory deficit Results Laboratory Results: 09/22/18 04:15 09/22/18 04:15 09/21/18 09/21/18 09/22/18 15:08 22:37 00:24 WBC RBC Hgb Hct MCV MCH MCHC RDW Plt Count Seg Neutrophils % Lymphocytes % Monocytes % Eosinophils % Basophils % Absolute Neutrophils Absolute Lymphocytes Absolute Monocytes Absolute Eosinophils Absolute Basophils Sodium Cancelled Potassium Cancelled Chloride Cancelled Carbon Dioxide Cancelled Anion Gap Cancelled BUN Cancelled Creatinine Cancelled Est GFR ( Amer) Cancelled Est GFR (Non-Af Amer) Cancelled Glucose Cancelled Lactic Acid 4.1 H Calcium Cancelled Magnesium Total Bilirubin AST ALT Alkaline Phosphatase Total Protein Albumin Lipase 27.6 TSH 09/22/18 09/22/18 09/22/18 01:09 01:09 04:15 WBC 11.7 H RBC 3.42 L Hgb 10.6 L Hct 31.8 L MCV 93 MCH 30.9 MCHC 33.2 RDW 14.7 H Plt Count 149 L Seg Neutrophils % 83.6 H Lymphocytes % 11.3 L Monocytes % 5.0 Eosinophils % 0.0 Basophils % 0.1 Absolute Neutrophils 9.8 H Absolute Lymphocytes 1.3 Absolute Monocytes 0.6 Absolute Eosinophils 0.0 Absolute Basophils 0.0 Sodium 141.5 Potassium 3.2 L D Chloride 114 H Carbon Dioxide 15 L Anion Gap 13 BUN 24 H Creatinine 0.65 Est GFR ( Amer) > 60 Est GFR (Non-Af Amer) > 60 Glucose 278 H Lactic Acid Calcium 7.3 L Magnesium 1.6 Total Bilirubin AST ALT Alkaline Phosphatase Total Protein Albumin Lipase TSH 09/22/18 09/22/18 09/22/18 04:15 04:15 10:10 WBC RBC Hgb Hct MCV MCH MCHC RDW Plt Count Seg Neutrophils % Lymphocytes % Monocytes % Eosinophils % Basophils % Absolute Neutrophils Absolute Lymphocytes Absolute Monocytes Absolute Eosinophils Absolute Basophils Sodium 137.8 Potassium 3.9 Chloride 104 Carbon Dioxide 17 L Anion Gap 17 BUN 27 H Creatinine 0.90 Est GFR ( Amer) > 60 Est GFR (Non-Af Amer) > 60 Glucose 363 H Lactic Acid 1.5 Calcium 9.3 Magnesium Total Bilirubin 0.7 AST 31 ALT 19 Alkaline Phosphatase 44 Total Protein 5.8 L Albumin 3.6 Lipase TSH 0.62 09/21/18 15:08 Troponin I < 0.012 Impressions: KUB X-Ray 09/21/18 18:43 IMPRESSION: Nonobstructed bowel gas pattern demonstrating copious colonic stool and gas. Abdomen/Pelvis CT 09/21/18 23:29 IMPRESSION: Findings of constipation otherwise no acute intra-abdominal abnormality. Head CT 09/22/18 10:01 IMPRESSION: No acute intracranial pathology. EVIDENCE OF ACUTE STROKE: NO. Chest X-Ray 09/22/18 10:04 IMPRESSION: Cardiomegaly without acute abnormality of the lungs. No focal airspace opacity. Assessment & Plan - Diagnosis (1) Abdominal pain Is this a current diagnosis for this admission?: Yes Plan: Resolved. No acute findings on CT of the abdomen/pelvis aside from constipation. (2) Hypotension Is this a current diagnosis for this admission?: Yes Plan: Improved. Reportedly after dulcolax use when patient had a BM. She got 5 L of fluids since admission. Reduce IV fluids to 50 cc/hr. She does not have prior history of CHF but chest x-ray does show cardiomegaly. Lactic acid was normal. WBC slightly went up from 8 to 11. Blood culture pending. (3) Hyperglycemia Is this a current diagnosis for this admission?: Yes Plan: Patient's [place] pump malfunctioned and was d/jackson on admission. Currently only on sliding scale. Will add long acting insulin. Upon review of labs, she appeared to be in mild DKA when she presented. Reduce IV fluids to 50 cc/hr. Repeat BMP. - Time Time Spent with patient: 25-34 minutes
[2018-09-22] MEDS ORDERED: NORMAL SALINE 1000 ML 1,000 ML IV PRN (18:10)
[2018-09-22] MEDS ORDERED: CEFTRIAXONE 1 GM/D5W RTU 1 GM/50 ML RTUPB IV ONE (19:00)
[2018-09-22 19:52] LABS: ANION GAP 7 (5-19); BLOOD UREA NITROGEN 29 mg/dL (7-20); CARBON DIOXIDE 23 mmol/L (22-30); CHLORIDE 108 mmol/L (98-107); GLUCOSE 156 mg/dL (75-110); POTASSIUM 3.6 mmol/L (3.6-5.0); SODIUM 137.5 mmol/L (137-145)
[2018-09-23] MEDS: HEPARIN SOD (PORCINE) 5,000 UNIT/ML 1 ML SYRINGE SUBCUT SCH ×2 (05:46→14:27)
[2018-09-23 05:57] LABS: ABSOLUTE LYMPHOCYTES (AUTO) 1.6 10^3/uL (0.5-4.7); ABSOLUTE MONOCYTES (AUTO) 0.4 10^3/uL (0.1-1.4); ABSOLUTE NEUT (AUTO) 5.9 10^3/uL (1.7-8.2); BASOPHILS % (AUTO) 0.3 % (0-2); EOSINOPHILS % (AUTO) 0.4 % (0-6); HEMATOCRIT 33.8 % (36.0-47.0); HEMOGLOBIN 11.4 g/dL (12.0-15.5); LYMPHOCYTES % (AUTO) 20.5 % (13-45); MEAN CORPUSCULAR HEMOGLOBIN 31.1 pg (27.0-33.4); MEAN CORPUSCULAR HGB CONC 33.8 g/dL (32.0-36.0); MEAN CORPUSCULAR VOLUME 92 fl (80-97); PLATELET COUNT 155 10^3/uL (150-450); RED BLOOD COUNT 3.67 10^6/uL (3.72-5.28); RED CELL DISTRIBUTION WIDTH 14.7 % (11.5-14.0); SEGMENTED NEUTROPHILS % (AUTO) 73.8 % (42-78); TOTAL CELLS COUNTED % (AUTO) 100 %
[2018-09-23] MEDS: INSULIN LISPRO 100 UNIT/ML 3 ML VIAL SUBCUT SCH ×3 (08:35→17:16)
[2018-09-23] MEDS: ASPIRIN 81 MG TABLET, ENT COATED PO SCH (09:53)
[2018-09-23] MEDS: DOCUSATE SODIUM 100 MG CAPSULE PO SCH (09:53)
[2018-09-23] MEDS: CYCLOSPORINE 0.05% OPH EMULSIO 0.4 ML DROPERETTE OU SCH ×2 (09:53→18:45)
[2018-09-23] MEDS: CETIRIZINE 10 MG TABLET PO SCH (09:53)
[2018-09-23] MEDS ORDERED: INSULIN DETEMIR 100 UNIT/ML 3 ML PEN SUBCUT SCH (10:00)
[2018-09-23 15:33] VITALS: BP 139/68
--- NOTE | 2018-09-23 17:07 | PDOC DISCHARGE SUMMARY ---
General - Admit/Disc Date/PCP Admission Date/Primary Care Provider: 09/22/18 10:22 DERICK SANTANA MD Discharge Date: 09/23/18 - Discharge Diagnosis (1) DKA (diabetic ketoacidoses) Is this a current diagnosis for this admission?: Yes (2) Abdominal pain Is this a current diagnosis for this admission?: Yes (3) Hypotension Is this a current diagnosis for this admission?: Yes (4) Hyperglycemia Is this a current diagnosis for this admission?: Yes (5) Dehydration Is this a current diagnosis for this admission?: Yes - Additional Information Resuscitation Status: Full Code Prescriptions: Insulin Detemir [Levemir Insulin 100 units/mL] 13 unit SUBCUT DAILY #2 insuln.pen Insulin Lispro [Humalog Insulin (Lispro) 100 unit/mL] 0 unit SUBCUT .SLD SCALE #10 ml Lactulose [Constulose 10 gm/15 mL Oral Solution] 30 ml PO DAILYP PRN #30 ml PRN Reason: CONSTIPATION Lancing Device/Lancets [Accu-Chek Softclix Lancet Kit] 1 kit MC ASDIR PRN #1 kit PRN Reason: Pen Needle, Diabetic [Insulin Pen Needle] 1 each ACHS #30 dis.needle Syringe and Needle,Insulin,1Ml [Insulin Syringe 1 mL] 1 syr MC ASDIR PRN #100 syringe PRN Reason: Home Medications: Ascorbic Acid [Vitamin C 500 mg Tablet] 500 mg PO DAILY 08/15/18 Aspirin [Ecotrin 81 mg EC Tablet] 81 mg PO DAILY 08/15/18 Cetirizine HCl [Zyrtec 10 mg Tablet] 10 mg PO DAILY 08/15/18 Cyclosporine 0.05% Oph Emulsio [Restasis 0.05% Oph Emulsion Pf 0.4 ml] 1 drop OU BID 08/15/18 Docusate Sodium [Colace 100 mg Capsule] 100 mg PO DAILY 08/15/18 Losartan/Hydrochlorothiazide [Hyzaar 50-12.5 Tablet] 1 tab PO DAILY 08/15/18 Pnv No.95/Ferrous Fum/Folic AC [ Vitamin Tablet] 1 tab PO DAILY 08/15/18 Pravastatin Sodium [Pravachol] 40 mg PO QHS 08/15/18 Valacyclovir HCl [Valtrex 500 mg Tablet] 500 mg PO DAILY 08/15/18 Vortioxetine Hydrobromide [Trintellix] 10 mg PO DAILY 09/22/18 Insulin Detemir [Levemir Insulin 100 units/mL] 13 unit SUBCUT DAILY #2 insuln.pen 09/23/18 Insulin Lispro [Humalog Insulin (Lispro) 100 unit/mL] 0 unit SUBCUT .SLD SCALE #10 ml 09/23/18 Lactulose [Constulose 10 gm/15 mL Oral Solution] 30 ml PO DAILYP PRN #30 ml 09/23/18 Lancing Device/Lancets [Accu-Chek Softclix Lancet Kit] 1 kit ASDIR PRN #1 kit 09/23/18 Pen Needle, Diabetic [Insulin Pen Needle] 1 each ACHS #30 dis.needle 09/23/18 Syringe and Needle,Insulin,1Ml [Insulin Syringe 1 mL] 1 syr ASDIR PRN #100 syringe 09/23/18 History of Present Illness History of Present Illness: JOCELYN ALVAREZ is a 68 year old female with a past medical history of familial hypo-gammaglobulinemia on IVIG with Dr. Saez, diabetes, hypertension, chronic pain, chronic constipation. She presents with several days of aching, cramping right-sided abdominal pain exacerbated by movement associated with nausea, poor oral intake, constipation and hyperglycemia. 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 Saez, diabetes on an insulin pump, hypertension, chronic pain, chronic constipation who was admitted for elevated sugars, right sided abdominal pain, constipation, and malfunctioning insulin pump. She was started recently on ciprofloxacin for UTI. She was also reported to be hypotensive after using a dulcolax suppository. In the ER, she was noted to be severely hyperglycemic. CT of the abdomen and pelvis was only remarkable for constipation. She also reports of a history of a benign brain tumor. CT of the head here was unremarkable. She appeared to be in DKA when she presented with elevated sugar, low HCO3, high anion gap and ketones in the urine. Patient's insulin pump malfunctioned and was d/jackson on admission. Her abdominal pain did resolve. No acute findings on CT of the abdomen/pelvis aside from constipation. She had regular BMs here. Her abdominal pain was likely more related to her DKA and constipation. Her hypotension did promptly resolve with IV fluids and was likely more from volume depletion/dehydration due to poor oral intake. Her sugars have been close to goal with Levemir 10 u daily. On the afternoon of discharge, her sugars are in the low 200s. Will discharge her on Levemir 13 u daily and a Humalog sliding scale insulin. Physical Exam Vital Signs: Temp Pulse Resp BP Pulse Ox 98.8 F 96 16 139/68 H 96 09/23/18 15:33 09/23/18 16:32 09/23/18 16:32 09/23/18 15:33 09/23/18 16:32 Intake & Output 09/22/18 09/23/18 09/24/18 06:59 06:59 06:59 Intake Total 4800 3518 976 Output Total 200 700 Balance 4800 3318 276 Weight 132 lb 0.91 oz 141 lb 1.533 oz General appearance: PRESENT: no acute distress, well-developed, well-nourished Head exam: PRESENT: atraumatic, normocephalic Eye exam: PRESENT: conjunctiva pink, EOMI, PERRLA. ABSENT: scleral icterus Ear exam: PRESENT: normal external ear exam Mouth exam: PRESENT: moist, tongue midline Neck exam: ABSENT: carotid bruit, JVD, lymphadenopathy, thyromegaly Respiratory exam: PRESENT: clear to auscultation pretty. ABSENT: rales, rhonchi, wheezes Cardiovascular exam: PRESENT: RRR. ABSENT: diastolic murmur, rubs, systolic mur mur Pulses: PRESENT: normal dorsalis pedis pul GI/Abdominal exam: PRESENT: normal bowel sounds, soft. ABSENT: distended, guarding, mass, organolmegaly, rebound, tenderness Rectal exam: PRESENT: deferred Neurological exam: PRESENT: alert, awake, oriented to person, oriented to place, oriented to time, oriented to situation, CN II-XII grossly intact. ABSENT: motor sensory deficit Results Laboratory Results: 09/23/18 05:53 09/22/18 18:45 09/22/18 09/23/18 18:45 05:53 WBC 8.0 RBC 3.67 L Hgb 11.4 L Hct 33.8 L MCV 92 MCH 31.1 MCHC 33.8 RDW 14.7 H Plt Count 155 Seg Neutrophils % 73.8 Lymphocytes % 20.5 Monocytes % 5.0 Eosinophils % 0.4 Basophils % 0.3 Absolute Neutrophils 5.9 Absolute Lymphocytes 1.6 Absolute Monocytes 0.4 Absolute Eosinophils 0.0 Absolute Basophils 0.0 Sodium 137.5 Potassium 3.6 Chloride 108 H Carbon Dioxide 23 Anion Gap 7 BUN 29 H Creatinine 0.84 Est GFR ( Amer) > 60 Est GFR (Non-Af Amer) > 60 Glucose 156 H Calcium 9.0 09/21/18 15:20 Clean Catch Midstream Urine Culture - Final Mixed Urogenital Lily 09/21/18 15:08 Troponin I < 0.012 Impressions: KUB X-Ray 09/21/18 18:43 IMPRESSION: Nonobstructed bowel gas pattern demonstrating copious colonic stool and gas. Abdomen/Pelvis CT 09/21/18 23:29 IMPRESSION: Findings of constipation otherwise no acute intra-abdominal abnormality. Head CT 09/22/18 10:01 IMPRESSION: No acute intracranial pathology. EVIDENCE OF ACUTE STROKE: NO. Chest X-Ray 09/22/18 10:04 IMPRESSION: Cardiomegaly without acute abnormality of the lungs. No focal airspace opacity. Qualifiers - * PATIENT BEING DISCHARGED WITH ANY OF THE FOLLOWING DIAGNOSIS: No
[2018-09-23] MEDS ORDERED: CEFTRIAXONE 1 GM/D5W RTU 1 GM/50 ML RTUPB IV SCH (18:00)
[2018-09-24] MEDS ORDERED: INSULIN DETEMIR 100 UNIT/ML 3 ML PEN SUBCUT SCH (10:00)
== END 2018-09-23 18:05 | disposition home or self-care (01) | DRG 638 ==
LOC: ER 11:18 → EH 09-22 01:28 → 4W 09-22 02:35 → OBSVTOIN 09-22 10:22
PROVIDERS: ADMIT Internal Medicine; ATTEND Internal Medicine
PROC: 3E0F73Z Introduction of Anti-inflammatory into Respiratory Tract, Via Natural or Artificial Opening (ICD-10-PCS; principal; 2018-09-22)
DX: E10.10 Type 1 diabetes mellitus with ketoacidosis without coma (principal); D80.0 Hereditary hypogammaglobulinemia; E86.0 Dehydration; I10 Essential (primary) hypertension; G89.29 Other chronic pain; K59.09 Other constipation; Z96.41 Presence of insulin pump (external) (internal); I95.2 Hypotension due to drugs; T47.2X5A Adverse effect of stimulant laxatives, initial encounter; M19.90 Unspecified osteoarthritis, unspecified site; Z79.899 Other long term (current) drug therapy; Z79.82 Long term (current) use of aspirin; Z79.4 Long term (current) use of insulin; Z90.710 Acquired absence of both cervix and uterus; Z83.3 Family history of diabetes mellitus; Z82.49 Family history of ischemic heart disease and other diseases of the circulatory system
CPT/HCPCS: 36415; 36591; 70450; 71045; 74018; 74177; 80048; 80053; 81001; 82533; 82803; 82962; 83036; 83605; 83690; 83735; 84443; 84484; 85025; 87040; 87086; 93005; 93010; 96361; 96365; 96366; 96375; 99284; G0378; J0696; J0744; J1644; J1815; J1885; J2405; J3480; J3490; J7030

== ENCOUNTER 2018-10-03 08:34 | Outpatient (CLI) | payer MEDICARE, OTHER ==
[~2018-10-03 08:34] MED LIST changes: -IMMUNE GLOB GAM CAPRYLATE IV PRN; +IMMUNE GLOB,GAM CAPRYLATE(IGG) 20 GM, IMMUNE GLOB,GAM CAPRYLATE(IGG) 10 GM in CONTAINER... IV PRN; -[UNRECOGNIZED DRUG - OTHER] IV PRN
[2018-10-03 08:56] VITALS: BP 139/55
== END 2018-10-03 13:10 | disposition home or self-care (01) ==
LOC: II 08:34 → 5TH 08:36 → II 13:10
PROVIDERS: ATTEND Internal Medicine
PROC: 30243S1 Transfusion of Nonautologous Globulin into Central Vein, Percutaneous Approach (ICD-10-PCS; principal; 2018-10-03)
PROC: 3E043GC Introduction of Other Therapeutic Substance into Central Vein, Percutaneous Approach (ICD-10-PCS; 2018-10-03)
PROC: 3E0433Z Introduction of Anti-inflammatory into Central Vein, Percutaneous Approach (ICD-10-PCS; 2018-10-03)
DX: D80.1 Nonfamilial hypogammaglobulinemia (principal)
CPT/HCPCS: 96365; 96366; 96367; 96375; J1561 ×2; J1200; A9270; J1100; 96360; 96374; 96413; 96415; 96417; J3490

== ENCOUNTER → 2019-01-31 | Outpatient (CLI) | payer MEDICARE, OTHER ==
--- NOTE | 2019-01-31 10:06 | WOMENS IMAGING REPORT ---
EXAM DESCRIPTION: 3D SCREENING MAMMO BILAT COMPLETED DATE/TIME: 01/31/2019 9:48 am REASON FOR STUDY: Z12.31 ENCOUNTER FOR SCREENING MAMMOGRAM FOR MALIGNANT NEOPLASM OF BREAST Z12.31 ENCNTR SCREEN MAMMOGRAM FOR MALIGNANT NEOPLASM OF NORMA COMPARISON: 01/30/2018 and 12/26/2016. EXAM PARAMETERS: Views: Standard craniocaudal and mediolateral oblique views of each breast recorded using digital acquisition and breast tomosynthesis. Read with the assistance of CAD. .[facility] - R2 Residence Director Version 9.2 LIMITATIONS: None. FINDINGS: No suspicious masses, suspicious calcifications or architectural distortion. No areas of c oncern. IMPRESSION: NEGATIVE MAMMOGRAM. BIRADS 1. BREAST DENSITY: d. The breasts are extremely dense, which lowers the sensitivity of mammography. BIRAD: ASSESSMENT: 1 NEGATIVE RECOMMENDATION: ROUTINE SCREENING COMMENT: The patient has been notified of the results by letter per MQSA requirements. Additional no tification policies are in place for contacting patient with suspicious or incomplete findings. Quality ID #225: The [employer] recommends an annual screening mammogram for women aged 40 years or over. This facility utilizes a reminder system to ensure that all patients receive reminder letters, and/or direct phone calls for appointments. This includes reminders for routine scr eening mammograms, diagnostic mammograms, or other Breast Imaging Interventions when appropriate. Th is patient will be placed in the appropriate reminder system. TECHNICAL DOCUMENTATION: FINDING NUMBER: (1) ASSESSMENT: (1) JOB ID: [id number] [employer]- All Rights Reserved Reading location - IP/workstation name: [email or web address]
== END ==
LOC: WI 09:05
PROVIDERS: ATTEND Obstetrics & Gynecology Gynecology
DX: Z12.31 Encounter for screening mammogram for malignant neoplasm of breast (principal)
CPT/HCPCS: 77063; 77067

== ENCOUNTER → 2019-05-01 | Outpatient (CLI) | payer MEDICARE, OTHER ==
--- NOTE | 2019-05-01 12:59 | XCELERA REPORT ---
[address] [address] Lower Extremity Venous Evaluation Procedure: A bilateral duplex scan of the lower extremity veins was performed. The evaluation included responses to compression and other maneuvers with patient in the supine and standing positions to assess venous insufficiency. Right Sided Venous Evaluation Deep venous system evaluation shows patent veins with no significant reflux identified. Sapheno Femoral junction: no reflux. Greater Saphenous vein, Proximal thigh: reflux: no reflux. Greater Saphenous vein, mid thigh: reflux:no reflux. Greater Saphenous vein, Distal thigh: reflux:no reflux. Greater Saphenous vein, Proximal below knee: reflux: none Greater Saphenous vein, Mid below knee: reflux: none. Greater Saphenous vein, Distal below knee: reflux: no reflux. No significant Perforators identified. Left Sided Venous Evaluation Deep venous system evaluation shows patent veins with no obstruction significant reflux identified, in the Popliteal vein only, 1.3 seconds. Saphena Femoral junction: No reflux. Femoral vein reflux:No reflux. Greater Saphenous vein, Proximal thigh: reflux: 0.8 seconds, 5.6 mm diameter. Greater Saphenous vein, Mid thigh: reflux: 0.8 seconds, 4.2 mm diameter. Greater Saphenous vein, Distal thigh: reflux: 3 seconds. 5.3 mm diameter. Greater Saphenous vein, Proximal below knee: reflux: no reflux. Greater Saphenous vein, Mid below knee: reflux: 2.2 second reflux. 2.3 mm diameter. No significant Perforators identified. Interpretation Summary No duplex evidence of DVT or obstruction in the bilateral lower extremities. Left sided Reflux noted, Popliteal, deep, as well as Greater Saphenous superficial reflux. May be amenable to intervention, if clinically warranted. Name: JOCELYN ALVAREZ Age: 69 yrs Gender: Female : 1950 Patient Status: Outpatient Patient Location: Study Date: 05/01/2019 09:50 AM Reason For Study: VENOUS INSUFFICIENCY Ordering Physician: BLADE PORTER Performed By: French Cantrell : BLADE PORTER > Blade Porter
--- NOTE | 2019-05-01 13:03 | XCELERA REPORT ---
[address] [address] Lower Extremity Arterial Evaluation Name: JOCELYN ALVAREZ Age: 69 yrs Gender: Female : 1950 Patient Status: Outpatient Patient Location: [facility] Study Date: 05/01/2019 09:23 AM Procedure: A color flow and duplex scan of the lower extremity arteries was performed bilaterally with velocity and waveform anaylsis. 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 . Ankle Brachial index not ordered. Left Side Arterial Evaluation Normal velocity and triphasic waveforms noted from the Common Femoral artery to the infrageniculate vessels . Biphasic with low velocity, no spectral broadening in the Anterior Tibial and Dorsalis Pedis arteries. Reversal of flow in the Dorsalis Pedis. Ankle Brachial index not ordered. Interpretation Summary No hemodynamically significant lesions in the right lower extremity only, on duplex imaging, at rest. Mild hemodynamically significant lesions in the left lower extremity only, on duplex imaging, at rest. Duplex is normal on the right, On the left, disease in the Anterior Tibial is well compensated, including collateral flow. : BLADE PORTER > Blade Porter
== END ==
LOC: SP 08:39
PROVIDERS: ATTEND Surgery
DX: I87.2 Venous insufficiency (chronic) (peripheral) (principal); I73.9 Peripheral vascular disease, unspecified
CPT/HCPCS: 93925; 93970

== ENCOUNTER → 2020-02-03 | Outpatient (CLI) | payer MEDICARE, OTHER ==
--- NOTE | 2020-02-03 11:28 | WOMENS IMAGING REPORT ---
EXAM DESCRIPTION: 3D SCREENING MAMMO BILAT IMAGES COMPLETED DATE/TIME: 02/03/2020 10:31 am REASON FOR STUDY: Z12.31 ENCNTR SCREEN MAMMOGRAM FOR MALIGNANT NEOPLASM OF BREAST Z12.31 ENCNTR SCR EEN MAMMOGRAM FOR MALIGNANT NEOPLASM OF NORMA COMPARISON: 01/31/2019, 01/30/2018, 01/25/2017 EXAM PARAMETERS: Views: Standard craniocaudal and mediolateral oblique views of each breast recorded using digital acquisition and breast tomosynthesis. Read with the assistance of CAD. .[facility] [place] - [place] Version 2.4 LIMITATIONS: None. FINDINGS: No suspicious masses, suspicious calcifications or architectural distortion. No areas of c oncern. IMPRESSION: NEGATIVE MAMMOGRAM. BIRADS 1. BREAST DENSITY: c. The breasts are heterogeneously dense, which may obscure small masses. BIRAD: ASSESSMENT: 1 NEGATIVE RECOMMENDATION: ROUTINE SCREENING COMMENT: The patient has been notified of the results by letter per MQSA requirements. Additional no tification policies are in place for contacting patient with suspicious or incomplete findings. Quality ID #225: The [employer] recommends an annual screening mammogram for women aged 40 years or over. This facility utilizes a reminder system to ensure that all patients receive reminder letters, and/or direct phone calls for appointments. This includes reminders for routine scr eening mammograms, diagnostic mammograms, or other Breast Imaging Interventions when appropriate. Th is patient will be placed in the appropriate reminder system. TECHNICAL DOCUMENTATION: FINDING NUMBER: (1) ASSESSMENT: (1) JOB ID: [id number] 2010 [employer]- All Rights Reserved Reading location - IP/workstation name: [email or web address]
== END ==
LOC: WI 09:40
PROVIDERS: ATTEND Obstetrics & Gynecology Gynecology
DX: Z12.31 Encounter for screening mammogram for malignant neoplasm of breast (principal)
CPT/HCPCS: 77063; 77067

== ENCOUNTER → 2020-08-07 | Outpatient (CLI) | payer MEDICARE, OTHER ==
--- NOTE | 2020-08-07 11:42 | RADIOLOGY REPORT (SQ) ---
EXAM DESCRIPTION: INJECT VENOUS ACCESS DEVICE IMAGES COMPLETED DATE/TIME: 08/07/2020 10:20 am REASON FOR STUDY: PORT CHECK Z45.2 ENCOUNTER FOR ADJUSTMENT AND MANAGEMENT OF VAD COMPARISON: None. FLUOROSCOPY TIME: 0.5 minutes 4 images saved to PACS. TECHNIQUE: Fluoroscopic guided injection of non-ionic contrast through an existing port a catheter. LIMITATIONS: None. PROCEDURE: The patient was brought into the fluoroscopic room and placed supine on the table. The levon ramirez's port access site was prepped and draped in a sterile fashion. The port was the accessed by daniel radiological nurse. The catheter was then injected with 15 ml of non-ionic contrast. A series of fl uoroscopic images demonstrate no extravasation from the port well or any evidence of fibrin sheath at the end of the catheter. IMPRESSION: PATENT PORT A CATH WITHOUT ANY EVIDENCE OF EXTRAVASATION OR FIBRIN SHEATH. COMMENT: PQRS 6045F: Fluoroscopy time of the procedure is documented in the report. PQRS G9500: Radiation exposure indices, exposure time or number of fluoroscopic images in final repor t for procedures using fluoroscopy, documented. TECHNICAL DOCUMENTATION: JOB ID: [id number] 2010 [employer] All Rights Reserved Reading location - IP/workstation name: [email or web address]
== END ==
LOC: RAD 09:17
PROVIDERS: ATTEND Internal Medicine
DX: Z45.2 Encounter for adjustment and management of vascular access device (principal)
CPT/HCPCS: 36598; J1642